=== PATIENT | female | born 1950 | race Caucasian/White ===

== ENCOUNTER 2018-12-20 08:18 | Outpatient (REF) | payer MEDICARE, MEDICAID, SELFPAY ==
[2018-12-20 22:45] LABS: Mean Corp. HGB Concentration 34.1 g/dL (32.0-36.0); Mean Corpuscular Hemoglobin 31.4 pg (27.0-33.0); Mean Corpuscular Volume 91.9 fL (80-95); Platelet Count 76 x1000/uL (130-400); RBC 4.46 m/cumm (4.00-5.20); RBC Distribution Width 13.9 % (11.7-14.6); White Blood Cell Count 5.29 k/cumm (4.4-10.8)
[2018-12-20 22:46] LABS: Absolute Basophil Count 0.01 k/cumm (0.0-0.2); Absolute Eosinophil Count 0.13 k/cumm (0.0-0.7); Absolute Lymphocyte Count 1.69 k/cumm (1.2-3.4); Absolute Monocyte Count 0.48 k/cumm (0.11-0.7); Absolute Neutrophil Count 2.97 k/cumm (1.2-6.7); Atypical Lymphocytes % 0; Basophils % 0.2; Eosinophils % 2.5; Immature Grans % 0.2; Lymphocytes % 31.9; Mean Platelet Volume 11.5 fL (8.0-11.0); Monocytes % 9.1; Neutrophils % 56.1
[2018-12-20 22:47] LABS: RBC Morphology Normal
[2018-12-20 22:48] LABS: ESR 7 MM/HR (0-30)
== END 2018-12-20 08:38 ==
LOC: NCHCN 08:18
PROVIDERS: PCP Internal Medicine; Visit Provider Registered Nurse
DX: E03.9 Hypothyroidism, unspecified (principal); H04.129 Dry eye syndrome of unspecified lacrimal gland
CPT/HCPCS: 85652; 85025

== ENCOUNTER 2019-03-26 10:40 | Outpatient (REF) | payer MEDICARE, MEDICAID, SELFPAY ==
[2019-03-26 23:48] LABS: Calculated LDL 123 mg/dL; Cholesterol 196 mg/dL (50-200); HDL Cholesterol 51 mg/dL (40-60); TSH (W/Ref FT4) 4.38 uIU/mL (0.358-3.74); Triglyceride 111 mg/dL (30-150)
[2019-03-27 00:13] LABS: FREE T4 0.98 ng/dL (0.76-1.46)
== END 2019-03-26 11:00 ==
LOC: NCHCN 10:40
PROVIDERS: PCP Internal Medicine; Visit Provider Internal Medicine
DX: E03.9 Hypothyroidism, unspecified (principal); B18.2 Chronic viral hepatitis C; Z13.6 Encounter for screening for cardiovascular disorders
CPT/HCPCS: 80061; 83721; 84439; 84443

== ENCOUNTER 2021-03-19 18:19 | Outpatient (REF) | payer MEDICARE, MEDICAID, SELFPAY ==
[2021-03-19 21:19] LABS: ALT 14 U/L (14-59); AST 27 U/L (15-37); Albumin 3.2 g/dL (3.4-5.0); Alkaline Phosphatase 85 U/L (46-116); Anion Gap 9.5 mmol/L (3-11); BUN 10 mg/dL (7-18); Bilirubin, Total 0.7 mg/dL (0.2-1.0); CO2 25.5 mmol/L (21.0-32.0); CREATININE 0.7 mg/dL (0.55-1.02); Calcium 8.7 mg/dL (8.5-10.1); Chloride 108 mmol/L (98-107); Glucose 113 mg/dL (74-106); Sodium 143 mmol/L (136-145); Total Protein 6.8 g/dL (6.4-8.2)
[2021-03-20 08:43] LABS: Hemoglobin A1C 5.3 % (<5.7)
== END 2021-03-19 18:20 | disposition home or self-care (01) ==
LOC: NCHCN 18:19
PROVIDERS: PCP Internal Medicine; Visit Provider Nurse Practitioner Family
DX: R73.9 Hyperglycemia, unspecified (principal); E66.9 Obesity, unspecified; R60.0 Localized edema; R30.0 Dysuria
CPT/HCPCS: 80053; 83036

== ENCOUNTER 2021-03-20 13:26 | Outpatient (REF) | payer MEDICARE, MEDICAID, SELFPAY ==
[2021-03-20 15:12] LABS: COMMENT (LAB VIEW ONLY) 188.03 mg/dL; Microalb ug/mg Crea 5.9 ug/mg Cr
== END 2021-03-20 13:27 | disposition home or self-care (01) ==
LOC: NCHCN 13:26
PROVIDERS: PCP Internal Medicine; Visit Provider Internal Medicine
DX: R30.0 Dysuria (principal)
CPT/HCPCS: 82043; 82570; 87086

== ENCOUNTER 2021-07-20 15:40 | Outpatient (REF) | payer MEDICARE, MEDICAID, SELFPAY ==
[2021-07-20 21:45] LABS: HCT 44.3 % (36.0-46.0); HGB 14.4 g/dL (11.2-15.7); MCH 29.9 pg (27.0-33.0); MCHC 32.5 % (32.0-36.0); MCV 91.9 fL (80-95); MPV 11.9 fL (8.0-11.0); Platelet Count 80 10^3/uL (130-400); RBC 4.82 10^6/uL (3.93-5.22); RDW 13.8 % (11.7-14.6); RDW-SD 46.9 fL; WBC 6.49 10^3/uL (4.4-10.8)
[2021-07-20 22:22] LABS: TSH 4.02 uIU/mL (0.36-3.74); Vitamin B12 704 pg/mL (193-986)
== END 2021-07-20 15:41 | disposition home or self-care (01) ==
LOC: NCHCN 15:40
PROVIDERS: PCP Internal Medicine; Visit Provider Internal Medicine
DX: R41.3 Other amnesia (principal); D69.6 Thrombocytopenia, unspecified
CPT/HCPCS: 85027; 82607; 84443

== ENCOUNTER 2021-12-23 21:57 | Outpatient (REF) | payer MEDICARE, MEDICAID, SELFPAY ==
[2021-12-25 11:30] LABS: Lyme Ab w Rflx to Lyme Confirm Negative (Negative)
[2021-12-27 00:37] LABS: Anaplasma phagocytophilum Negative (Negative); B. miyamotoi PCR Negative (Negative); Babesia divergens/MO-1 Negative (Negative); Babesia duncani Negative (Negative); Babesia microti Negative (Negative); Ehrlichia chaffeensis Negative (Negative); Ehrlichia ewingii/canis Negative (Negative); Ehrlichia muris eauclairensis Negative (Negative)
== END 2021-12-23 21:58 | disposition home or self-care (01) ==
LOC: LBN 21:57
PROVIDERS: PCP Internal Medicine; Visit Provider Internal Medicine
DX: R53.83 Other fatigue (principal); M25.50 Pain in unspecified joint
CPT/HCPCS: 87798; 86618

== ENCOUNTER 2022-01-21 18:58 | Outpatient (REF) | payer MEDICARE, MEDICAID, SELFPAY ==
[2022-01-25 12:37] LABS: HCV RNA Qualitative Undetected (Undetected)
== END 2022-01-21 18:59 | disposition home or self-care (01) ==
LOC: NCHCN 18:58
PROVIDERS: PCP Internal Medicine; Visit Provider Internal Medicine
DX: B18.2 Chronic viral hepatitis C (principal)
CPT/HCPCS: 87522

== ENCOUNTER 2022-11-19 18:19 | Outpatient (REF) | payer MEDICARE, MEDICAID, SELFPAY ==
[2022-11-19 15:11] LABS: HCT 43.1 % (36.0-46.0); HGB 14.3 g/dL (11.2-15.7); MCH 30.2 pg (27.0-33.0); MCHC 33.2 % (32.0-36.0); MCV 91 fL (80-95); MPV 11.1 fL (8.0-11.0); Platelet Count 75 10^3/uL (130-400); RBC 4.73 10^6/uL (3.93-5.22); RDW 14.4 % (11.7-14.6); RDW-SD 47.8 fL; WBC 3.99 10^3/uL (4.4-10.8)
[2022-11-19 15:25] LABS: ALT 15 U/L (14-59); AST 34 U/L (15-37); Albumin 3.4 g/dL (3.4-5.0); Alkaline Phosphatase 89 U/L (46-116); Anion Gap 6.7 mmol/L (3-11); BUN 9 mg/dL (7-18); Bilirubin, Total 1.1 mg/dL (0.2-1.0); CO2 30.3 mmol/L (21.0-32.0); CREATININE 0.6 mg/dL (0.55-1.02); Calcium 9.1 mg/dL (8.5-10.1); Chloride 106 mmol/L (98-107); Cholesterol 174 mg/dL (<200); Estimated GFR 94.13 (mL/min/1.73m2); Glucose 117 mg/dL (74-106); Potassium 3.6 mmol/L (3.5-5.1); Sodium 143 mmol/L (136-145); Total Protein 7.5 g/dL (6.4-8.2); Triglyceride 177 mg/dL (<150)
[2022-11-19 15:38] LABS: Hemoglobin A1C 5.1 % (<5.7)
[2022-11-19 16:17] LABS: Calculated LDL 76 mg/dL (<100); HDL Cholesterol 63 mg/dL (40-60)
--- OUTSIDE RECORDS SUMMARY | 2022-11-19 18:21 | XMS_ITS | CCD ---
Author Name Unknown Address [address] [place] [address] [phone] Organization Unknown Address [address] [place] [address] [phone] Care Team Providers Care Physics Technician Name Role Phone LOS MAURA Danyel Attending Physician [phone] Vital Signs Unknown or Not Available. Allergies Allergy Code Allergy Type Reaction Status PATIENT OR PATIENT FAMILY DE NIES ANY ALLERGIES {Clinical monitoring unavailable} 0 Drug allergy Active Procedures Unknown or Not Available. History of Immunizations Unknown or Not Available. Problems Unknown or Not Available. Results Unknown or Not Available. Active Medications Medication Code Dose Units Frequency Route Modificatio n Start Date/Time HYDROcodone bitartrate-acet aminophen 5MG-325MG Oral Tablet 523652 1 TABLET DAILY ORAL 12/23/2021 08:04 Prescription Detail TAKE 1 TABLET ORAL DAILY HERBAL JOINT/ARTHRITIS SUPPLEMENT 0 1 EACH DAILY BY MOUTH 02/23/2018 12:29 Prescription Detail TAKE 1 EACH BY MOUTH DAILY One Daily Women's Oral Tablet 6314307 1 TABLET DAILY ORAL 02/23/2018 12:29 Prescription Detail TAKE 1 TABLET ORAL DAILY Probiotic Formula 250 MG-1 Billion CFU Oral Capsule [id number] 1 CAPSULE DAILY ORAL 02/23/2018 12:29 Prescription Detail TAKE 1 CAPSULE ORAL DAILY VITAMIN D TAB 250MG 0 500 MILLIGRAMS NEEDED DAILY BY MOUTH 02/23/2018 12:29 Prescription Detail TAKE 500 MILLIGRAMS BY MOUTH NEEDED D AILY Levothyroxine 50MCG Oral Tablet [id number] 1 TABLET DAILY ORAL 02/23/2018 12:28 Prescription Detail TAKE 1 TABLET ORAL DAILY Claudy Natural [place]-3 Fish Oil 1000 MG-1 IU Oral Capsule, Liquid Filled [id number] 1 CAPSULE DAILY ORAL 02/24/20 12:28 Prescription Detail TAKE 1 CAPSULE ORAL DAILY Medications Administered During Visit Unknown or Not Available. Encounters Encounter Diagnosis Diagnosis Code Start Date Other abnormalities of gait and mobility [id number] 01/20/2022 Social History Smoking Status Code Start Date End Date Current some day smoker [id number] Patient Decision Aids Unknown or Not Available. Discharge Instructions You were admitted to [facility] on 01/20/2022 10:59 with a principal diagnosis of Other abnormalities of gait and mobility You were discharged from [facility] on 05/05/2022 11:18 Should you have any questions prior to discharge, please contact a member of your healthcare team. If you have left the hospital and have any questions, please contact your primary care physician. Chief Complaint and Reason For Visit Unknown or Not Available. Function Status Unknown or Not Available. Plan of Care Unknown or Not Available. Referral/Transition of Care Unknown or Not Available.
--- OUTSIDE RECORDS SUMMARY | 2022-11-19 18:21 | XMS_ITS | CCD ---
Author Name Unknown Address [address] [place] [address] [phone] Organization Unknown Address [address] [place] [address] [phone] Care Team Providers Care Engraver Ornamental Design Name Role Phone SEGUNDO CRABTREE, NERY Clay Attending Physician [phone] Vital Signs Unknown or Not Available. Allergies [...] Date/Time HYDROcodone bitartrate-acet aminophen 5MG-325MG Oral Tablet 452657 1 TABLET DAILY ORAL 12/23/2021 08:04 Prescription Detail TAKE 1 TABLET ORAL DAILY HERBAL JOINT/ARTHRITIS SUPPLEMENT 0 1 EACH DAILY BY MOUTH 02/23/2018 12:29 Prescription Detail TAKE 1 EACH BY MOUTH DAILY One Daily Women's Oral Tablet 2724742 1 TABLET DAILY ORAL 02/23/2018 12:29 Prescription Detail TAKE 1 TABLET ORAL DAILY Probiotic Formula 250 MG-1 Billion CFU Oral Capsule 2562588 1 CAPSULE DAILY ORAL 02/23/2018 12:29 Prescription Detail TAKE 1 CAPSULE ORAL DAILY VITAMIN D TAB 250MG 0 500 MILLIGRAMS NEEDED DAILY BY MOUTH 02/23/2018 12:29 Prescription Detail TAKE 500 MILLIGRAMS BY MOUTH NEEDED D AILY Levothyroxine 50MCG Oral Tablet 823234 1 TABLET DAILY ORAL 02/23/2018 12:28 Prescription Detail TAKE 1 TABLET ORAL DAILY Claudy Natural [place]-3 Fish Oil 1000 MG-1 IU Oral Capsule, Liquid Filled [id number] 1 CAPSULE DAILY ORAL 02/24/20 12:28 Prescription Detail TAKE 1 CAPSULE ORAL DAILY Medications Administered During Visit Unknown or Not Available. Encounters Encounter Diagnosis Diagnosis Code Start Date Cardiomegaly I517 04/16/2021 Social History Smoking Status Code Start Date End Date Current some day smoker [id number] Patient Decision Aids Unknown or Not Available. Discharge Instructions You were admitted to [facility] on 04/16/2021 09:52 with a principal diagnosis of Cardiomegaly You were discharged from [facility] on 04/16/2021 09:52 Should you have any questions prior to [...]
== END 2022-11-19 18:20 | disposition home or self-care (01) ==
LOC: NCHCN 18:19
PROVIDERS: PCP Internal Medicine; Visit Provider Internal Medicine
DX: R73.9 Hyperglycemia, unspecified (principal); K74.60 Unspecified cirrhosis of liver; E03.9 Hypothyroidism, unspecified
CPT/HCPCS: 80053; 80061; 85027; 83036

== ENCOUNTER 2024-05-10 12:45 | Outpatient (REF) | payer MEDICARE, MEDICAID, SELFPAY ==
--- OUTSIDE RECORDS SUMMARY | 2024-05-10 12:47 | XMS_ITS ---
Author Organization Unknown Address [address] [place] [address] [phone] Phone Care Team Providers Care Progressive Care Nurse Name Role Phone LOS Montaño Attending Unavailable Social History Type Status Start Date End Date Code Code Syst em Smoking History Current some day smoker [id number] SNOMED CT Sex Female Medications Medication Start Date End Date Route Frequency Dose Code Code System Medication Instructions Home Meds HERBAL JOINT/ARTHRITIS SUPPLEMENT 02/23/2018 Unknown BY MOUTH DAILY 1 unit(s) RxNorm TAKE 1 EACH BY MOUTH DAILY Levothyroxine 50MCG Oral Tablet 02/23/2018 Unknown ORAL DAILY 1 TABLET 880130 RxNorm TAKE 1 TABLET ORAL DAILY Claudy Natural [place]-3 Fish Oil 1000 MG-1 IU Oral Capsule, Liquid Filled 02/23/2018 Unknown ORAL DAILY 1 CAPSULE RxNorm TAKE 1 CAPSULE ORAL DAILY One Daily Women's Oral Tablet 02/23/2018 Unknown ORAL DAILY 1 TABLET 2198297 RxNorm TAKE 1 TABLET ORAL DAILY Probiotic Formula 250 MG-1 Billion CFU Oral Capsule 02/23/2018 Unknown ORAL DAILY 1 CAPSULE 7931078 RxNorm TAKE 1 CAPSULE ORAL DAILY VITAMIN D TAB 250MG 02/23/2018 Unknown BY MOUTH NEEDED DAILY 500 MILLIGRAMS RxNorm TAKE 500 MILLIGRAMS BY MOUTH NEEDED DAILY HYDROcodone bitartrate-aceta minophen 5MG-325MG Oral Tablet 12/23/2021 Unknown ORAL DAILY 1 TABLET 311384 RxNorm TAKE 1 TABLET ORAL DAILY Furosemide 20MG Oral Tablet 06/21/2023 Unknown ORAL DAILY 1 TABLET 285116 RxNorm TAKE 1 TABLET ORAL DAILY Assessment You had the following problems:BILATERAL LOWER EXTREMITY EDEMADYSPNEATHROMBOCYTOPENIA Hospital Discharge Instructions Should you have any questions prior to discharge, please contact a member of your healthcare team. If you have left the hospital and have any questions, please contact your primary care physician. Reason For Referral No Data Found Problems Problem Start Date Resolved Date Status Code Code System BILATERAL LOWER EXTREMITY EDEMA active 601434283 SNOMED-CT DYSPNEA active 451371732 SNOMED-CT THROMBOCYTOPENIA active 256223871 SNO MED-CT HEPATITIS B active 30386512 SNOMED-C T THROMBOCYTOPENIA active 593609933 SNO MED-CT OBSTRUCTIVE SLEEP APNEA active 651059 09 SNOMED-CT HYPOTHYROIDISM active 99126632 SNOME D-CT BILATERAL LOWER EXTREMITY EDEMA active 534552490 SNOMED-CT CHRONIC HEPATITIS C active 181992947 SNOMED-CT Allergies and Adverse Reactions Allergy Substance Reaction Severity Start Date Concern Status Co de Code System No Known Drug Allergies Active 818792792 SNOMED-CT Plan of Treatment Travel 02/03/2021 Lab Draw 11/28/2020 BONE DENSITY DEXA SPINE & HIP 3 US ABDOMEN LIMITED 1 ORGAN 12/08/2022 BONE DENSITY DEXA SPINE & HIP 3 US ABDOMEN LIMITED 1 ORGAN 12/08/2022 Encounters Encounter Diagnosis Start Date Code Code Sys tem Other abnormalities of gait and mobility 01/20/2022 SNOMED-CT Personal Care Team Section Performer Name Performer Role Active Date Inactive Da te
--- OUTSIDE RECORDS SUMMARY | 2024-05-10 12:48 | XMS_ITS | Clinical Summary ---
Author Organization [facility] Address [address] [place] [address] Care Team Providers Care Physical Biochemist Name Role Phone Anastacio Merlos MD Primary Care Provider Unav ailable Allergies No known active allergies Medications Medication Sig Dispensed Refills Start Date End Date Status levothyroxine (SYNTHROID) 50 mcg tablet Take 50 mcg by mouth daily Active UNABLE TO FIND Take 1 Cap by mouth daily Med Name: cognishield Active furosemide (LASIX) 20 mg tablet Take 20 mg by mouth daily. Active Vit B91-Yoyxcut Fact-FA Cmb #2 (INTRINSI [id number]) 500-20-800 mcg-mg-mcg tablet Take by mouth. Act kanika Potassium 99 mg tablet Take 1 Tab by mouth daily. Active cholecalciferol, Vitamin D3, 1,000 unit tablet Take 1,000 Units by mouth daily. Active cyanocobalamin (VITAMIN B-12) 500 mcg tablet Take 500 mcg by mouth daily. Active Active Problems Patient Care Coordination No te Formatting of this note migh t be different from the original. [facility] TALON scanned into Prism: 07/29/15 Problem Noted Date Diagnosed Date Cataracts, bilateral Rosacea Hepatitis C Hypothyroidism JOVITA (obstructive sleep apnea) Stress incontinence, female Depression ADD (attention deficit disorder) Surgical History Surgery Date Site/Laterality Comments CATARACT REMOVAL WITH IMPLANT 2014 Bilateral SECTION x 1 Medical History Medical History Date Comments Cataracts, bilateral Rosacea Hepatitis C Hypothyroidism JOVITA (obstructive sleep apnea) Stress incontinence, female Obesity Depression ADD (attention deficit disorder) Wrist fracture Family History Medical History Relation Comments Dementia Mother Relation Status Comments Mother Social History Tobacco Use Types Packs/Day Years Used Date Smoking Tobacco: Some Days Smokeless Tobacco: Never Tobacco Cessation:Ready to Q uit: No Comments:Occasional smoker Alcohol Use Standard Drinks/Week Comments No 0 (1 standard drink = 0.6 oz pur e alcohol) Interpersonal Safety Answer Date Record ed Physically Hurt Never 04/20/2020 Verbally Threaten Not on file 04/20/2020 Sex and Gender Information Value Date Recorded Sex Assigned at Not on file Gender Identity Not on file Sexual Orientation Not on file Obstetrics History Last Filed Vital Signs Vital Sign Reading Time Taken Comments Blood Pressure 135/80 08/12/2015 1436 EST Pulse 72 07/17/2018 1512 EDT Temperature - - Respiratory Rate 16 07/17/2018 151 EDT Oxygen Saturation - - Inhaled Oxygen Concentration - - Weight 90.7 kg (200 lb) 07/17/2018 151 EDT Height 157.5 cm (5' 2) 07/17/2018 151 EDT Body Mass Index 36.58 07/17/2018 1512 EDT Plan of Treatment Health Maintenance Due Date Last Done Comments RSV Immunization ( o r 60+ Years) (1 - 1-dose 60+ series) 2008 Fall Risk Screening 08/12/2016 08/12/2015 COVID-19 Vaccine (2022-24 season) 2023 Hepatitis C Screen Completed 01/21/2022, 0 10/05/2018, 01/18/2018 Procedures Procedure Name Priority Date/Time Associated Diagnosis Comments HCV RNA DETECT QUANT Routine 01/21/2022 16:23 EDT from Last 3 Months or Most Recently Relevant to Health Maintenance Results * HCV RNA DETECT QUANT (01/21/2022 16:23 EDT) HCV RNA Qualitative Undetected Undetected 01/25/2022 12:33 EDT [facility] Blood VENOUS BLOOD / Unknown 01/21/2022 16:23 EDT 01/22/2022 16:37 EDT Narrative [facility] - 01/25/2022 12:33 EDT The quantification range of this assay is 15 IU/mL to 100,000,000 IU/mL. Testing was performed using the [employer] HCV test ([employer] with the alfonso Parkya0 System. Provider Outr Resulting Lab CHEMISTRY & BLOOD GAS ORDERABLES [facility] [address] [place] [address] from Last 3 Months or Most Recently Relevant to Health Maintenance Care Teams Physical Biochemist Relationship Specialty Start Date End Date Anastacio Merlos MD PCP - General 08/12/15
--- OUTSIDE RECORDS SUMMARY | 2024-05-10 12:48 | XMS_ITS ---
Author Organization Unknown Address [address] [place] [address] [phone] Phone Care Team Providers Care Lead Pl Sql Developer Name Role Phone NICHOLAS Elliott Attending Unavailable LOS Montaño Primary Unavailable Social History Type Status Start Date End Date Code Code Syst em Smoking History Current some day smoker [id number] SNOMED CT Sex Female Medications Medication Start Date End Date Route Frequency Dose Code Code System Medication Instructions Home Meds HERBAL JOINT/ARTHRITIS SUPPLEMENT 02/23/2018 Unknown BY MOUTH DAILY 1 unit(s) RxNorm TAKE 1 EACH BY MOUTH DAILY Levothyroxine 50MCG Oral Tablet 02/23/2018 Unknown ORAL DAILY 1 TABLET 366394 RxNorm TAKE 1 TABLET ORAL DAILY Claudy Natural [place]-3 Fish Oil 1000 MG-1 IU Oral Capsule, Liquid Filled 02/23/2018 Unknown ORAL DAILY 1 CAPSULE RxNorm TAKE 1 CAPSULE ORAL DAILY One Daily Women's Oral Tablet 02/23/2018 Unknown ORAL DAILY 1 TABLET 2999781 RxNorm TAKE 1 TABLET ORAL DAILY Probiotic Formula 250 MG-1 Billion CFU Oral Capsule 02/23/2018 Unknown ORAL DAILY 1 CAPSULE 7566552 RxNorm TAKE 1 CAPSULE ORAL DAILY VITAMIN D TAB 250MG 02/23/2018 Unknown BY MOUTH NEEDED DAILY 500 MILLIGRAMS RxNorm TAKE 500 MILLIGRAMS BY MOUTH NEEDED DAILY HYDROcodone bitartrate-aceta minophen 5MG-325MG Oral Tablet 12/23/2021 Unknown ORAL DAILY 1 TABLET 666868 RxNorm TAKE 1 TABLET ORAL DAILY Furosemide 20MG Oral Tablet 06/21/2023 Unknown ORAL DAILY 1 TABLET 204939 RxNorm TAKE 1 TABLET ORAL DAILY Assessment [...] Code System BILATERAL LOWER EXTREMITY EDEMA active 875788589 SNOMED-CT DYSPNEA active 724826167 SNOMED-CT THROMBOCYTOPENIA active 812717951 SNO MED-CT HEPATITIS B active 46350837 SNOMED-C T THROMBOCYTOPENIA active 899959407 SNO MED-CT OBSTRUCTIVE SLEEP APNEA active 699560 09 SNOMED-CT HYPOTHYROIDISM active 79262297 SNOME D-CT BILATERAL LOWER EXTREMITY EDEMA active 516910059 SNOMED-CT CHRONIC HEPATITIS C active 494999488 SNOMED-CT Allergies and Adverse Reactions Allergy Substance Reaction Severity Start Date Concern Status Co de Code System No Known Drug Allergies Active 577528421 SNOMED-CT Plan of Treatment Travel 02/03/2021 Lab Draw 11/28/2020 BONE DENSITY DEXA SPINE & HIP 3 US ABDOMEN LIMITED 1 ORGAN 12/08/2022 BONE DENSITY DEXA SPINE & HIP 3 US ABDOMEN LIMITED 1 ORGAN 12/08/2022 Encounters Encounter Diagnosis Start Date Code Code Sys tem 01/06/2023 [id number] SNOMED-CT Personal Care Team Section Performer Name Performer Role Active Date Inactive Da rigoberto
--- OUTSIDE RECORDS SUMMARY | 2024-05-10 12:48 | XMS_ITS ---
Author Organization Unknown Address [address] [place] [phone] Phone Care Team Providers Care Tie Tamper Name Role Phone CLAYTON MANCUSO Registered Nurse Unavailable GERARD Danielle Attending Unavailable LOS Motnaño Primary Unavailable UNLISTED PROVIDER - REQUESTED Xhandoff Un available Results TROPONIN HIGH SENSITIVITY* - Collect Date/Time: 06/21/2023 16:20 [facility] ID: [id number] [address] [place] [address], 5661 LOINC: 01460-2 Test Value Unit Reference Range Code Code System Flag TROPONIN HS 8.0 pg/mL L=0.0 H=60.4 Specimen seq. ADM. THYROID TESTING CASCADE* - C ollect Date/Time: 06/21/2023 16:20 [facility] ID: [id number] [address] [place] [address], 5661 LOINC: 3016-3 Test Value Unit Reference Range Code Code System Flag TSH. 1.471 uIU/mL L=0.360 H=3.740 3014-8 LOINC PTT PARTIAL THROMBOPLASTIN T RICO* - Collect Date/Time: 06/21/2023 16:20 [facility] ID: [id number] [address] [place] [address], [phone] LOINC: 78214-2 Test Value Unit Reference Range Code Code System Flag PTT 27.1 seconds L=24.5 H=32.8 93858-8 LOINC PT PROTHROMBIN TIME* - Colle ct Date/Time: 06/21/2023 16:20 [facility] ID: [id number] [address] [place] [address], 5661 LOINC: 5902-2 Test Value Unit Reference Range Code Code System Flag PROTIME 11.1 seconds L=9.3 H=11.4 5902-2 LOINC INR 1.07 L=2.00 H=3.00 13441-9 LOINC L MAGNESIUM SERUM* - Collect D ate/Time: 06/21/2023 16:20 [facility] ID: [id number] [address] [place] [address], 61 LOINC: 66946-4 Test Value Unit Reference Range Code Code System Flag MAGNESIUM 1.9 mg/dL L=1.8 H=2.4 34805-5 LOINC D-DIMER - Collect Date/Time: 06/21/2023 16:20 [facility] ID: [id number] [address] [place] [address], 5661 LOINC: 79694-4 Test Value Unit Reference Range Code Code System Flag D-DIMER 0.93 mg/L L=0.19 H=0.50 23485-8 LOINC H COMPREHENSIVE METABOLIC PANE L (CMP) - Collect Date/Time: 06/21/2023 16:20 [facility] ID: [id number] [address] [place] [address], 5661 LOINC: 90630-8 Test Value Unit Reference Range Code Code System Flag GLUCOSE 153 mg/dL L=70 H=116 2345-7 LOINC H BUN 11 mg/dL L=6 H=25 3094-0 LOINC CREATININE 0.71 mg/dL L=0.51 H=0.95 2160-0 LOINC SODIUM SERUM 140 mmol/L L=136 H=145 2951-2 LOINC POTASSIUM SERUM 3.7 mmol/L L=3.4 H=5.2 2823-3 LOINC CHLORIDE SERUM 105 mmol/L L=96 H=110 2075-0 LOINC CARBON DIOXIDE (CO2) 30 mmol/L L=22 H=34 8-9 LOINC ANION GAP 4.6 mmol/L 19723-3 LOINC CALCIUM SERUM 8.9 mg/dL L=8.2 H=10.2 09952-9 LOINC BILIRUBIN TOTAL 1.3 mg/dL L=0.0 H=1.3 1975-2 LOINC ALK. PHOS. 72 U/L L=46 H=116 6768-6 LOINC SGOT (AST) 36 U/L L=15 H=37 1920-8 LOINC SGPT (ALT) 13 U/L L=12 H=78 1742-6 LOINC TOTAL PROTEIN 7.1 gm/dL L=6.0 H=8.0 2885-2 LOINC ALBUMIN 2.9 gm/dL L=3.4 H=5.0 1751-7 LOINC L AGE 72 years eGFR (non-Afr.Amer.) 80 mL/min 91833-8 LOINC eGFR (Afr-Omani) 97 mL/min 66537-5 LOINC CBC W/ DIFFERENTIAL* - Colle ct Date/Time: 06/21/2023 16:20 [facility] ID: [id number] [address] [place], [place], [id number] LOINC: 95799-8 Test Value Unit Reference Range Code Code System Flag WBC 3.86 th/cmm L=5.00 H=10.00 L NEUT % 59.8 % L=40.0 H=80.0 LYMPH % 26.7 % L=10.0 H=50.0 MONO % 7.3 % L=2.0 H=12.0 EOS % 5.4 % L=0.0 H=8.0 BASO % 0.5 % L=0.0 H=3.0 IG % 0.3 % L=0.0 H=1.1 NRBC % 0.0 % L=0.0 H=0.0 NEUT abs count 2.3 th/cmm L=1.6 H=8.4 LYMPH abs count 1.0 th/cmm L=1.5 H=4.0 L MONO abs count 0.3 th/cmm L=0.2 H=1.0 EOS abs count 0.2 th/cmm L=0.0 H=0.5 BASO abs count 0.0 th/cmm L=0.0 H=0.2 IG abs count 0.0 th/cmm L=0.0 H=0.1 NRBC abs count 0.0 mil/cmm L=0.0 H=0.0 RBC 4.18 mil/cmm L=3.90 H=5.40 HEMOGLOBIN 12.0 gm/dL L=12.0 H=16.0 HEMATOCRIT 37 % L=37 H=47 MCV 88 fL L=82 H=92 MCH 28.7 pg L=27.0 H=31.0 MCHC 32.5 % L=32.0 H=36.0 RDW-SD 50.3 fL L=39.0 H=49.0 H PLATELET COUNT 80 th/cmm L=150 H=[address] [facility] COVID FLU RSV GENEXPE RT - Collect Date/Time: 06/21/2023 16:20 [facility] ID: [id number] [address] [place] [address], [phone] LOINC: 87786-7 Test Value Unit Reference Range Code Code System Flag COVID NEGATIVE Normal: Negative 68060-4 LOINC INFLUENZA A DNA NEGATIVE Normal: Negative 01251-8 LOINC INFLUENZA B DNA NEGATIVE Normal: Negative 11292-9 LOINC RSV DNA NEGATIVE Normal: Negative 20706-4 LOINC BNP (PRO-B NATRIURETIC PEPTI DE) - Collect Date/Time: 06/21/2023 16:20 [facility] ID: [id number] [address] [place] [address], 5661 LOINC: 42135-5 Test Value Unit Reference Range Code Code System Flag NT-proBNP 47.0 pg/mL L=0.0 H=125 72836-[address] ANGIOGRAPHY CHEST - Compl eted: 06/21/2023 18:14 LOINC: [facility] RADIOLOGY [place], [place] [address] PACS PROFESSOR OF RHETORIC REPORT Patient Name: KAMILA MONTES MRN: Sex: : Age: [id number] F 1950 72 Account: Accession: Admit: StayType: [id number] 06/21/2023 E/R Ordered: Order ID: Submitted: Ordering Provider: 06/21/2023 17:38 [id number] JOSE DANIEL PETERSON Completed: Technologist: Resulted: 06/21/2023 18:14 KM 06/21/2023 18:33 Study Description: CT ANGIOGRAPHY CHEST Study Reason: r/o PE TECHNIQUE: Imaging Protocol: CT angiography of the chest was performed using pulmonary embolus protocol. Multi planar reconstructions were performed. CONTRAST MATERIAL Intravenous: Omnipaque 350 Contrast volume: 100 cc COMPARISON: No exams were available for comparison FINDINGS: CHEST: PULMONARY ARTERIES: There are no intraluminal filling defects to suggest acute pulmonary emboli. LUNGS: There are no infiltrates nor evidence of pulmonary infarction.. There are no pleural effusions. MEDIASTINUM: There is no hilar nor mediastinal adenopathy. CARDIAC: Heart size is upper normal. There is no pericardial effusion.Caliber of the thoracic aorta is within normal limits. No dissection. There is no evidence of shift of the interventricular septum. PARTIALLY VISUALIZED UPPERMOST ABDOMEN: Porcelain gallbladder. No adrenal masses. Splenomegaly. OSSEOUS: No significant osseous lesions and no fractures evident. IMPRESSION: 1. No evidence of acute pulmonary emboli. No evidence of pulmonary infarction.No pleural effusions. 2. No aortic dissection. No pericardial effusion Porcelain gallbladder. Splenomegaly Report Digitally Signed by Lowell Camilo on 06/21/2023 06:33 PM EDT XR CHEST 2V PA AND LATERAL - Completed: 06/21/2023 17:19 LOINC: [facility] RADIOLOGY [place], [place] [address] PACS PROFESSOR OF RHETORIC REPORT Patient Name: KAMILA MONTES MRN: Sex: : Age: [id number] F 1950 [id number] Account: Accession: Admit: StayType: [id number] 06/21/2023 E/R Ordered: Order ID: Submitted: Ordering Provider: 06/21/2023 16:15 [id number] JOSE DANIEL PETERSON Completed: Technologist: Resulted: 06/21/2023 17:19 LXH 06/21/2023 17:37 Study Description: XR CHEST 2V PA AND LATERAL Study Reason: SOB TECHNIQUE: 2D digital imaging was performed. PA and Lateral views COMPARISON: Prior chest x-ray 12/24/2019 FINDINGS: Heart size is normal. The mediastinum is not widened. Lungs are clear. There are no infiltrates nor pleural effusions. Elevated left hemidiaphragm again noted IMPRESSION: No acute pulmonary findings. Elevated left hemidiaphragm again noted. Calcification in the right side of the abdomen noted with either related to large gallstone or porcelain gallbladder. Report Digitally Signed by Lowell Camilo on 06/21/2023 05:37 PM EDT Social History Type Status Start Date End Date Code Code Syst em Smoking History Current some day smoker [id number] SNOMED CT Sex Female Vital Signs Vital Sign Value Unit Kimball Value Kimball Unit Date/Time Recent/Initial? Code Code System Body Mass Index 36.18 kg/m2 06/21/2023 16:15 Initial 88597 -5 LOINC Systolic Blood Pressure 118 mm[Hg] 06/21/2023 18:54 Most Recent 8480- 6 LOINC Diastolic Blood Pressure 83 mm[Hg] 06/21/2023 18:54 Most Recent 8462- 4 LOINC Systolic Blood Pressure 123 mm[Hg] 06/21/2023 16:15 Initial 8480- 6 LOINC Diastolic Blood Pressure 110 mm[Hg] 06/21/2023 16:15 Initial 8462- 4 LOINC Body Surface Area 1.98 m2 06/21/2023 16:15 Initial 3140- 1 LOINC Height 157.480 0 cm 62.00 in 06/21/2023 16:15 Initial 8302- 2 INC O2 Saturation 97 % 2022 18:54 Most Recent 08286 -5 INC O2 Saturation 98 % 2022 16:15 Initial 29426 -5 INC Pulse 67.0 /min 06/21/2023 18:54 Most Recent 8867- 4 INC Pulse 76.0 /min 06/21/2023 16:15 Initial 8867- 4 LOINC Respiration 18 /min 06/21/20 18:54 Most Recent 9279- 1 LOINC Respiration 18 /min 06/21/20 16:15 Initial 9279- 1 INC Temperature 36.1 Enma 97.0 F 06/21/20 16:15 Initial 8310- 5 INC Weight 89.72 kg 197.80 lbs 06/21/2023 16:15 Initial 26130 -7 [facility] Medications Medication Start Date End Date Route Frequency Dose Code Code System Medication Instructions Home Meds HERBAL JOINT/ARTHRITIS SUPPLEMENT 02/23/2018 Unknown BY MOUTH DAILY 1 unit(s) RxNorm TAKE 1 EACH BY MOUTH DAILY Levothyroxine 50MCG Oral Tablet 02/23/2018 Unknown ORAL DAILY 1 TABLET 736018 RxNorm TAKE 1 TABLET ORAL DAILY Claudy Natural Eldred-3 Fish Oil 1000 MG-1 IU Oral Capsule, Liquid Filled 02/23/2018 Unknown ORAL DAILY 1 CAPSULE RxNorm TAKE 1 CAPSULE ORAL DAILY One Daily Women's Oral Tablet 02/23/2018 Unknown ORAL DAILY 1 TABLET 7968016 RxNorm TAKE 1 TABLET ORAL DAILY Probiotic Formula 250 MG-1 Billion CFU Oral Capsule 02/23/2018 Unknown ORAL DAILY 1 CAPSULE 0418350 RxNorm TAKE 1 CAPSULE ORAL DAILY VITAMIN D TAB 250MG 02/23/2018 Unknown BY MOUTH NEEDED DAILY 500 MILLIGRAMS RxNorm TAKE 500 MILLIGRAMS BY MOUTH NEEDED DAILY HYDROcodone bitartrate-aceta minophen 5MG-325MG Oral Tablet 12/23/2021 Unknown ORAL DAILY 1 TABLET 643105 RxNorm TAKE 1 TABLET ORAL DAILY Furosemide 20MG Oral Tablet 06/21/2023 Unknown ORAL DAILY 1 TABLET 214357 RxNorm TAKE 1 TABLET ORAL DAILY Assessment You had the following problems:BILATERAL LOWER EXTREMITY EDEMADYSPNEATHROMBOCYTOPENIA Hospital Discharge Instructions Should you have any questions prior to discharge, please contact a member of your healthcare team. If you have left the hospital and have any questions, please contact your primary care physician. Reason For Referral No Data Found Procedures Procedure Name Date Status Code Code Syste m section completed 12042554 SNOMEDCT Problems Problem Start Date Resolved Date Status Code Code System BILATERAL LOWER EXTREMITY EDEMA active 730662193 SNOMED-CT DYSPNEA active 970612882 SNOMED-CT THROMBOCYTOPENIA active 589041185 SNO MED-CT HEPATITIS B active 60494363 SNOMED-C T THROMBOCYTOPENIA active 590566467 SNO MED-CT OBSTRUCTIVE SLEEP APNEA active 312450 09 SNOMED-CT HYPOTHYROIDISM active 93460844 SNOME D-CT BILATERAL LOWER EXTREMITY EDEMA active 745750248 SNOMED-CT CHRONIC HEPATITIS C active 549295114 SNOMED-CT Allergies and Adverse Reactions Allergy Substance Reaction Severity Start Date Concern Status Co de Code System No Known Drug Allergies Active 717481487 SNOMED-CT Plan of Treatment Travel 02/03/2021 Lab Draw 11/28/2020 BONE DENSITY DEXA SPINE & HIP 3 US ABDOMEN LIMITED 1 ORGAN 12/08/2022 BONE DENSITY DEXA SPINE & HIP 3 US ABDOMEN LIMITED 1 ORGAN 12/08/2022 OUTPATIENT PLAN: Additional Physician Instructions: Please try to decrease salt/sodium intake as much as possible. Your prescription was electronically sent to [facility] in [place]. Discharge Medications Medication Dosage Route Frequency Prescribing MD Special Instructions Furosemide 20MG Oral Tablet 1 TABLET ORAL DAILY GERARD JOSE DANIEL Lolis TAKE 1 TABLET ORAL DAILY HOSPITAL COURSE AND TESTING: Medications given this visit: Ordered & Completed Meds Table: No Current Medications Available Lab Results: This Visit Test Results Units Reference Range Ordered Collected Status NT-proBNP 47 pg/mL L=0.0 H=125 06/21/2023 16:15 06/21/2023 16:20 final WBC 3.86 L th/cmm L=5.00 H=10.00 06/21/2023 16:15 06/21/2023 16:20 final NEUT % 59.8 % L=40.0 H=80.0 06/21/2023 16:15 06/21/2023 16:20 final LYMPH % 26.7 % L=10.0 H=50.0 06/21/2023 16:15 06/21/2023 16:20 final MONO % 7.3 % L=2.0 H=12.0 06/21/2023 16:15 06/21/2023 16:20 final EOS % 5.4 % L=0.0 H=8.0 06/21/2023 16:15 06/21/2023 16:20 final BASO % 0.5 % L=0.0 H=3.0 06/21/2023 16:15 06/21/2023 16:20 final IG % 0.3 % L=0.0 H=1.1 06/21/2023 16:15 06/21/2023 16:20 final NRBC % 0 % L=0.0 H=0.0 06/21/2023 16:15 06/21/2023 16:20 final NEUT abs count 2.3 th/cmm L=1.6 H=8.4 06/21/2023 16:15 06/21/2023 16:20 final LYMPH abs count 1 L th/cmm L=1.5 H=4.0 06/21/2023 16:15 06/21/2023 16:20 final MONO abs count 0.3 th/cmm L=0.2 H=1.0 06/21/2023 16:15 06/21/2023 16:20 final EOS abs count 0.2 th/cmm L=0.0 H=0.5 06/21/2023 16:15 06/21/2023 16:20 final BASO abs count 0 th/cmm L=0.0 H=0.2 06/21/2023 16:15 06/21/2023 16:20 final IG abs count 0 th/cmm L=0.0 H=0.1 06/21/2023 16:15 06/21/2023 16:20 final NRBC abs count 0 mil/cmm L=0.0 H=0.0 06/21/2023 16:15 06/21/2023 16:20 final RBC 4.18 mil/cmm L=3.90 H=5.40 06/21/2023 16:15 06/21/2023 16:20 final HEMOGLOBIN 12 gm/dL L=12.0 H=16.0 06/21/2023 16:15 06/21/2023 16:20 final HEMATOCRIT 37 % L=37 H=47 06/21/2023 16:15 06/21/2023 16:20 final MCV 88 fL L=82 H=92 06/21/2023 16:15 06/21/2023 16:20 final MCH 28.7 pg L=27.0 H=31.0 06/21/2023 16:15 06/21/2023 16:20 final MCHC 32.5 % L=32.0 H=36.0 06/21/2023 16:15 06/21/2023 16:20 final RDW-SD 50.3 H fL L=39.0 H=49.0 06/21/2023 16:15 06/21/2023 16:20 final PLATELET COUNT 80 L th/cmm L=150 H=450 06/21/2023 16:15 06/21/2023 16:20 final GLUCOSE 153 H mg/dL L=70 H=116 06/21/2023 16:15 06/21/2023 16:20 final BUN 11 mg/dL L=6 H=25 06/21/2023 16:15 06/21/2023 16:20 final CREATININE 0.71 mg/dL L=0.51 H=0.95 06/21/2023 16:15 06/21/2023 16:20 final SODIUM SERUM 140 mmol/L L=136 H=145 06/21/2023 16:15 06/21/2023 16:20 final POTASSIUM SERUM 3.7 mmol/L L=3.4 H=5.2 06/21/2023 16:15 06/21/2023 16:20 final CHLORIDE SERUM 105 mmol/L L=96 H=110 06/21/2023 16:15 06/21/2023 16:20 final CARBON DIOXIDE (CO2) 30 mmol/L L=22 H=34 06/21/2023 16:15 06/21/2023 16:20 final ANION GAP 4.6 mmol/L 06/21/2023 16:15 06/21/2023 16:20 final CALCIUM SERUM 8.9 mg/dL L=8.2 H=10.2 06/21/2023 16:15 06/21/2023 16:20 final BILIRUBIN TOTAL 1.3 mg/dL L=0.0 H=1.3 06/21/2023 16:15 06/21/2023 16:20 final ALK. PHOS. 72 U/L L=46 H=116 06/21/2023 16:15 06/21/2023 16:20 final SGOT (AST) 36 U/L L=15 H=37 06/21/2023 16:15 06/21/2023 16:20 final SGPT (ALT) 13 U/L L=12 H=78 06/21/2023 16:15 06/21/2023 16:20 final TOTAL PROTEIN 7.1 gm/dL L=6.0 H=8.0 06/21/2023 16:15 06/21/2023 16:20 final ALBUMIN 2.9 L gm/dL L=3.4 H=5.0 06/21/2023 16:15 06/21/2023 16:20 final AGE 72 years 06/21/2023 16:15 06/21/2023 16:20 final eGFR (non-Afr.Amer.) 80 mL/min 06/21/2023 16:15 06/21/2023 16:20 final eGFR (Afr-Omani) 97 mL/min 06/21/2023 16:15 06/21/2023 16:20 final COVID NEGATIVE Normal: Negative 06/21/2023 16:15 06/21/2023 16:20 final INFLUENZA A DNA NEGATIVE Normal: Negative 06/21/2023 16:15 06/21/2023 16:20 final INFLUENZA B DNA NEGATIVE Normal: Negative 06/21/2023 16:15 06/21/2023 16:20 final RSV DNA NEGATIVE Normal: Negative 06/21/2023 16:15 06/21/2023 16:20 final D-DIMER 0.93 H mg/L L=0.19 H=0.50 06/21/2023 16:15 06/21/2023 16:20 final MAGNESIUM 1.9 mg/dL L=1.8 H=2.4 06/21/2023 16:15 06/21/2023 16:20 final PROTIME 11.1 seconds L=9.3 H=11.4 06/21/2023 16:15 06/21/2023 16:20 final INR 1.07 L L=2.00 H=3.00 06/21/2023 16:15 06/21/2023 16:20 final PTT 27.1 seconds L=24.5 H=32.8 06/21/2023 16:15 06/21/2023 16:20 final TSH. 1.471 uIU/mL L=0.360 H=3.740 06/21/2023 16:15 06/21/2023 16:20 final TROPONIN HS 8 pg/mL L=0.0 H=60.4 06/21/2023 16:15 06/21/2023 16:20 final Specimen seq. ADM. 06/21/2023 16:15 06/21/2023 16:20 final RADIOLOGY RESULTS: Study Description: XR CHEST 2V PA AND LATERAL Study Reason: SOB Technique: 2D digital imaging was performed. PA and Lateral views Comparison: Prior chest x-ray 12/24/2019 Findings: Heart size is normal. The mediastinum is not widened. Lungs are clear. There are no infiltrates nor pleural effusions. Elevated left hemidiaphragm again noted Impression: No acute pulmonary findings. Elevated left hemidiaphragm again noted. Calcification in the right side of the abdomen noted with either related to large gallstone or porcelain gallbladder. CT ANGIO CHEST - Interpreted by radiology. Impression: No evidence of PE. Encounters Encounter Diagnosis Start Date Code Code Sys tem Thrombocytopenic disorder 06/21/2023 046859629 SN OMED-CT Personal Care Team Section Performer Name Performer Role Active Date Inactive Da te
--- OUTSIDE RECORDS SUMMARY | 2024-05-10 12:48 | XMS_ITS ---
Author Organization Unknown Address [address] [place] [address] [phone] Phone Care Team Providers Care Office Helper Clerical Name Role Phone SEGUNDO Clay MD Attending Unavailable [place] Primary Unavailable Social History Type Status Start Date End Date Code Code Syst em Smoking History Smoker, current status unknown 49195064 SNOMED CT Smoking History Former smoker 6824900 SNOMED CT Smoking History Current some day smoker 314313426341992 SNOMED CT Sex Female Medications Medication Start Date End Date Route Frequency Dose Code Code System Medication Instructions Home Meds HERBAL JOINT/ARTHRITIS SUPPLEMENT 02/23/2018 Unknown BY MOUTH DAILY 1 unit(s) RxNorm TAKE 1 EACH BY MOUTH DAILY Levothyroxine 50MCG Oral Tablet 02/23/2018 Unknown ORAL DAILY 1 TABLET 122117 RxNorm TAKE 1 TABLET ORAL DAILY Claudy Natural Swan-3 Fish Oil 1000 MG-1 IU Oral Capsule, Liquid Filled 02/23/2018 Unknown ORAL DAILY 1 CAPSULE RxNorm TAKE 1 CAPSULE ORAL DAILY One Daily Women's Oral Tablet 02/23/2018 Unknown ORAL DAILY 1 TABLET 3162180 RxNorm TAKE 1 TABLET ORAL DAILY Probiotic Formula 250 MG-1 Billion CFU Oral Capsule 02/23/2018 Unknown ORAL DAILY 1 CAPSULE 2231092 RxNorm TAKE 1 CAPSULE ORAL DAILY VITAMIN D TAB 250MG 02/23/2018 Unknown BY MOUTH NEEDED DAILY 500 MILLIGRAMS RxNorm TAKE 500 MILLIGRAMS BY MOUTH NEEDED DAILY HYDROcodone bitartrate-aceta minophen 5MG-325MG Oral Tablet 12/23/2021 Unknown ORAL DAILY 1 TABLET 356865 RxNorm TAKE 1 TABLET ORAL DAILY Furosemide 20MG Oral Tablet 06/21/2023 Unknown ORAL DAILY 1 TABLET 243796 RxNorm TAKE 1 TABLET ORAL DAILY Assessment [...] Code System BILATERAL LOWER EXTREMITY EDEMA active 356172863 SNOMED-CT DYSPNEA active 245060522 SNOMED-CT THROMBOCYTOPENIA active 241362949 SNO MED-CT HEPATITIS B active 01681564 SNOMED-C T THROMBOCYTOPENIA active 343589199 SNO MED-CT OBSTRUCTIVE SLEEP APNEA active 755266 09 SNOMED-CT HYPOTHYROIDISM active 69922985 SNOME D-CT BILATERAL LOWER EXTREMITY EDEMA active 047269687 SNOMED-CT CHRONIC HEPATITIS C active 126042606 SNOMED-CT Allergies and Adverse Reactions Allergy Substance Reaction Severity Start Date Concern Status Co de Code System No Known Drug Allergies Active 144884116 SNOMED-CT Plan of Treatment Travel 02/03/2021 Lab Draw 11/28/2020 BONE DENSITY DEXA SPINE & HIP 3 US ABDOMEN LIMITED 1 ORGAN 12/08/2022 BONE DENSITY DEXA SPINE & HIP 3 US ABDOMEN LIMITED 1 ORGAN 12/08/2022 Encounters Encounter Diagnosis Start Date Code Code Sys tem Cardiomegaly 04/16/2021 SNOMED-CT Personal Care Team Section Performer Name Performer Role Active Date Inactive Sid franklin
--- OUTSIDE RECORDS SUMMARY | 2024-05-10 12:48 | XMS_ITS ---
Author Organization Unknown Address [address] [place] [address] [phone] Phone Care Team Providers Care Traffic Expert Name Role Phone LOS Montaño Attending Unavailable Results BD DXA BONE DENSITY HIP AND SPINE - Completed: 12/08/2022 08:51 LOINC: [facility] RADIOLOGY [place], [place] [address] PACS PUBLIC HEALTH PHYSICIAN REPORT Patient Name: KAMILA MONTES MRN: Sex: : Age: [id number] F [id number] Account: Accession: Admit: StayType: [id number] 12/08/2022 O/P Ordered: Order ID: Submitted: Ordering Provider: 12/08/2022 07:44 [id number] NLS MAURA MADISON Completed: Technologist: Resulted: 12/08/2022 08:51 DA 12/08/2022 12:30 Study Description: BD DXA BONE DENSITY HIP AND SPINE Study Reason: OSTEOPENIA TECHNIQUE: Performed on a Hologic unit. COMPARISON: No exams were available for comparison FINDINGS: Lumbar Spine total T-score: -1.0. Hip total T-score: -0.4. Independent reading at the femoral neck yields a T score of -2.2. IMPRESSION: Bone mineral density measures in the osteopenia range. Fracture risk is moderate. Note: Any spine fracture indicates 5x risk for subsequent spine fracture and 2x risk for subsequent hip fracture. World Health Organization criteria for BMD interpretation classify patients: Normal...... T- Score at or above -1.0 Osteopenic... T- Score between -1.0 and -2.5 Osteoporosis... T-Score at or below -2.5 No exams were available for comparison Report Digitally Signed by Lowell Camilo on 12/08/2022 12:30 PM EDT US ABD LIMITED ONE ORGAN - C ompleted: 12/08/2022 08:23 LOINC: [facility] RADI[facility]Y [place], [place] [address] PACS PUBLIC HEALTH PHYSICIAN REPORT Patient Name: KAMILA MONTES MRN: Sex: : Age: [id number] F 1950 [id number] Account: Accession: Admit: StayType: [id number] 12/08/2022 O/P Ordered: Order ID: Submitted: Ordering Provider: 12/08/2022 07:44 [id number] MAURA THOMAS Completed: Technologist: Resulted: 12/08/2022 08:23 GVS 12/08/2022 08:55 Study Description: US ABD LIMITED ONE ORGAN Study Reason: Cirrhosis TECHNIQUE: Ultrasound abdomen performed using standard protocol. COMPARISON: Lowermost images of chest CT scan 12/23/2021. FINDINGS: There is no ascites evident. LIVER: Liver exhibits cirrhotic appearance. No described focal hepatic lesion. GALLBLADDER/BILIARY: There appears to be a porcelain gallbladder, prominent gallbladder wall shadowing. Also 2.5 cm gallstone noted. No fluid around the gallbladder. The common hepatic duct isnot dilated, measuring 7 mm at the level of dee dee hepatis. PANCREAS: There is no evidence of pancreatic mass nor dilatation of the pancreatic duct. RIGHT KIDNEY:No evidence of solid mass, calculus, nor hydronephrosis. No cortical cysts evident. ABDOMINAL AORTA AND IVC: Visualized portions exhibit normal caliber. IMPRESSION: 1. Cholelithiasis and porcelain gallbladder, as evident on prior CT scan of 12/23/2021. 2. Hepatic cirrhosis. No hepatic lesion identified. 3. There is no ascites. Report Digitally Signed by Lowell Camilo on 12/08/2022 08:55 AM EDT Social History Type Status Start Date End Date Code Code Syst em Smoking History Current some day smoker [id number] SNOMED CT Sex Female Medications Medication Start Date End Date Route Frequency Dose Code Code System Medication Instructions Home Meds HERBAL JOINT/ARTHRITIS SUPPLEMENT 02/23/2018 Unknown BY MOUTH DAILY 1 unit(s) RxNorm TAKE 1 EACH BY MOUTH DAILY Levothyroxine 50MCG Oral Tablet 02/23/2018 Unknown ORAL DAILY 1 TABLET 969774 RxNorm TAKE 1 TABLET ORAL DAILY Claudy Natural Gordon-3 Fish Oil 1000 MG-1 IU Oral Capsule, Liquid Filled 02/23/2018 Unknown ORAL DAILY 1 CAPSULE RxNorm TAKE 1 CAPSULE ORAL DAILY One Daily Women's Oral Tablet 02/23/2018 Unknown ORAL DAILY 1 TABLET [id number] RxNorm TAKE 1 TABLET ORAL DAILY Probiotic Formula 250 MG-1 Billion CFU Oral Capsule 02/23/2018 Unknown ORAL DAILY 1 CAPSULE 7332384 RxNorm TAKE 1 CAPSULE ORAL DAILY VITAMIN D TAB 250MG 02/23/2018 Unknown BY MOUTH NEEDED DAILY 500 MILLIGRAMS RxNorm TAKE 500 MILLIGRAMS BY MOUTH NEEDED DAILY HYDROcodone bitartrate-aceta minophen 5MG-325MG Oral Tablet 12/23/2021 Unknown ORAL DAILY 1 TABLET 845727 RxNorm TAKE 1 TABLET ORAL DAILY Furosemide 20MG Oral Tablet 06/21/2023 Unknown ORAL DAILY 1 TABLET 998574 RxNorm TAKE 1 TABLET ORAL DAILY Assessment [...] Code System BILATERAL LOWER EXTREMITY EDEMA active 681648986 SNOMED-CT DYSPNEA active 284507077 SNOMED-CT THROMBOCYTOPENIA active 745238368 SNO MED-CT HEPATITIS B active 28842800 SNOMED-C T THROMBOCYTOPENIA active 188217633 SNO MED-CT OBSTRUCTIVE SLEEP APNEA active 305882 09 SNOMED-CT HYPOTHYROIDISM active 90212709 SNOME D-CT BILATERAL LOWER EXTREMITY EDEMA active 238829080 SNOMED-CT CHRONIC HEPATITIS C active 965205367 SNOMED-CT Allergies and Adverse Reactions Allergy Substance Reaction Severity Start Date Concern Status Co de Code System No Known Drug Allergies Active 082912858 SNOMED-CT Plan of Treatment Travel 02/03/2021 Lab Draw 11/28/2020 BONE DENSITY DEXA SPINE & HIP 3 US ABDOMEN LIMITED 1 ORGAN 12/08/2022 BONE DENSITY DEXA SPINE & HIP 3 US ABDOMEN LIMITED 1 ORGAN 12/08/2022 Encounters Encounter Diagnosis Start Date Code Code Sys tem Other specified disorders of bone density and structure, multiple sites 12/08/2022 SNOMED-CT Personal Care Team Section Performer Name Performer Role Active Date Inactive Da rigoberto
--- OUTSIDE RECORDS SUMMARY | 2024-05-10 12:49 | XMS_ITS | Encounter Summary ---
Author Organization [facility] Address [address] [place] [address] Care Team Providers Care Concrete Pointer Name Role Phone Anastacio Merlos MD Primary Care Provider Unav ailable Encounter Details Date Type Department Care Team ([facility] Contact Info) Description 05/31/2018 Historical Results Only [facility] Lab - Main [address] [address] Cesar Yo MD Social History Tobacco Use Types Packs/Day Years Used Date Smoking Tobacco: Some Days Smokeless Tobacco: Never Comments:Occasional smoker Alcohol Use Standard Drinks/Week Comments No 0 (1 standard drink = 0.6 oz pur e alcohol) Sex and Gender Information Value Date Recorded Sex Assigned at Not on file Gender Identity Not on file Sexual Orientation Not on file documented as of this encounter Plan of Treatment Not on file documented as of this encounter Procedures Procedure Name Priority Date/Time Associated Diagnosis Comments HEPATITIS B SURFACE ANTIGEN Routine 05/31/2018 14:05 EDT AMMONIA Routine 05/31/2018 14:05 EDT HEPATIC FUNCTION PANEL (ALB,ALK PHOS,ALT,AST,DBIL,T OT BARBARA,TOT PROT) Routine 05/31/2018 14:04 EDT documented in this encounter Results * AMMONIA (05/31/2018 14:05 EDT) Ammonia 12 9.0 - 30.0 umol/L 05/31/2018 14:32 EDT [facility] Comment: Glucose at or above 600 mg/dl can cause a decrease of 8 to 40 umol/L in ammonia concentration. 05/31/2018 14:0 5 EDT 05/31/2018 14:05 EDT [facility] - 05/31/2018 14:32 EDT Does PT Have a Latex Allergy? NO Cesar Yo MD CHEMISTRY & BLOOD GA S ORDERABLES [facility] * HEPATITIS B SURFACE ANTIGEN (05/31/2018 14:05 EDT) Hep B Surface Ag Negative 05/31/2018 15:20 EDT [facility] Comment: Expected Values: ??Negative. The results of this assay can be falsely lowered due to the consumption of Biotin. 05/31/2018 14:0 5 EDT 05/31/2018 14:05 EDT [facility] - 05/31/2018 15:20 EDT Does PT Have a Latex Allergy? NO Cesar Yo MD CHEMISTRY & BLOOD GA S ORDERABLES Performing Organization Address [facility] Co de Phone Number [facility] * (ABNORMAL) HEPATIC FUNCTION PANEL (ALB,ALK PHOS,ALT,AST,DBIL,TOT BARBARA,TOT PROT) (05/31/2018 14:04 EDT) Albumin % 3.5 3.4 - 4.9 g/dL 05/31/2018 14:50 EDT [facility] ALKALINE PHOSPHATASE - [facility] 38 - 126 U/L 05/31/2018 14:50 [facility] BILIRUBIN DIRECT CALC - [facility] 0.4 0.0 - 0.4 mg/dL 05/31/2018 14:50 [facility] BILIRUBIN TOTAL 1.1 0.2 - 1.3 mg/dL 05/31/2018 14:50 [facility] Unconjugated Bilirubin 0.7 0.0 - 1.1 mg/dL 05/31/2018 14:50 [facility] TOTAL PROTEIN - [facility] 7.3 6.2 - 8.2 gm/dL 05/31/2018 14:50 EDT [facility] SGOT/AST - [facility] 40(H) 14 - 36 U/L 05/31/2018 14:50 EDT [facility] SGPT/ALT - [facility] 17 9 - 52 U/L 8 14:50 EDT [facility] 05/31/2018 14:0 4 EDT 05/31/2018 14:05 EDT Narrative [facility] - 05/31/2018 14:50 EDT Does PT Have a Latex Allergy? NO Cesar Yo MD CHEMISTRY & BLOOD GA S ORDERABLES [facility] documented in this encounter Visit Diagnoses Not on filedocumented in this encounter Care Teams Concrete Pointer Relationship Specialty Start Date End Date Anastacio Merlos MD PCP - General 08/12/15 documented as of this encounter
--- OUTSIDE RECORDS SUMMARY | 2024-05-10 12:49 | XMS_ITS | Encounter Summary ---
Author Organization [facility] Address [address] [place] [address] Care Team Providers Care Human Resources Officer Name Role Phone Brianna Wang ND Primary Care Provider [phone] Reason for Visit * Reason Comments Memory Loss * Consult, Test and Treat (Routine) - Closed Specialty Diagnoses / Procedures Referred By Jacoby summers Referred To Contact Psychology Diagnoses Memory loss Anastacio Merlos MD [address] [place] [address] [facility] Memory Program [address] [place] [id number] Referral ID Status Reason Start Date Expiration Date Visits Re quested Visits Authorized [id number] Closed 2 2 Encounter Details Date Type Department Care Team ([facility] Contact Info) Description 07/29/2015 14:00 EST Office Visit [facility] Memory Program - Medical Office Building [address] [place] [address] Zackery Malik, PhD [address] [place] [address] Medical Office Building, [address] [place] [address] Memory loss (Primary Dx); Depression Social History Tobacco Use Types Packs/Day Years Used Date Smoking Tobacco: Never Assessed Sex and Gender Information Value Date Recorded Sex Assigned at Not on file Gender Identity Not on file Sexual Orientation Not on file documented as of this encounter Discharge Diagnoses Diagnosis R41.3 Other amnesia-R41.3[ICD-10-CM] Z01.89 Encounter for other specified special examinations-Z01.89[ICD-10-CM] documented in this encounter Consult Notes * Zackery Malik, PhD - 08/01/2015 2000 EST [facility] MEMORY PROGRAM CONSULTATION - 07/29/2015 PSYCHIATRIC INTERVIEW AND NEUROPSYCHOLOGICAL TESTING Ms Vika Ardon was seen for interview and testing on 07/29/2015. She was referred by Dr Anastacio Merlos ([facility]) and was seen as an outpatient at the Medical Office Building [facility]. PATIENT PROFILE: Ms Ardon was born in [place] and grew up mostly in [place]. Her mother at age 92 with Alzheimer's disease and her father at age 92 also, due to cancer. She is the second of 55 children in her family, with all of her siblings living in other states. She attended high school through the 11th grade and eventually obtained some sort of equivalency degree. She later obtained a BS from [employer] ([place] in 2006 in an online program in Alternative Medicine. She more recently completed an MA from [employer] in 2010 in [employer]. She reports also doing other college work and assorted training programs. 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 She last was employed for 3 years at [employer], but has been out of work since November 2014. She has twice and twice, and has no current relationship. She has two adult sons living in other states; she had a daughter who was recently murdered at age 40. She currently resides alone in subsidized [place], [place]. Her history is significant for hypothyroidism, hepatitis C, and attention deficit disorder. Her family history is notable for her mother having the previously mentioned Alzheimer's disease and her daughter having bipolar disorder. HISTORY OF PRESENTING ILLNESS: Ms Ardon reports that she was being seen today at the Memory Program due to concerns about her forgetfulness. She describes her memory as being more and more fragmented. She has been aware of issues with her memory for about two years and reports a gradual onset and continued decline. She was accompanied to the appointment by an acquaintance, but the person apparently was not adequately knowledgeable of Ms. Ardon's cognitive functioning or daily activities to serve as a supporting source of information. Consequently, all the information below is based on Ms. Ardon's subjective self-report. Ms Ardon reports that her recall of remote information is okay, but she does have some problem recalling recent events. For recall of recent conversations, she sometimes can confuse the content of conversations. For prospective memory, to keep track of appointments and other scheduled activities,she has to write everything down on her calendar, and has to check and recheck multiple times to avoid forgetting things. It was unclear if she has any problems with procedural memory, such as when accessing previously well-learned skills or using familiar technology. She is having problems misplacing paperwork, but she identified no other issues with losing belongings. She reports that she does have problems with word finding when speaking, but identified no other changes with her speech. She acknowledged having some problems with auditory comprehension when following the conversations of others. She reads some every day and has some reported difficulties with reading comprehension and describes her retention of read material as being terrible. She has to focus a good deal in order to w rite anything, and her handwriting and composition both fall apart over time. She denies problems with basic math skills. She indicates that she has significant problems with reasoning, decision making, and planning, citing problems with executive function. She is having difficulty managing the c haos in her life due to being extremely disorganized. Ms Ardon reports that she is managing her basic self-care and personal hygiene reasonably okay. She is not currently taking any medications, indicating that she essentially is against taking pharmaceuticals. She does her own cleaning, cooking and laundry reasonably well, but she does have issues dealing with clutter in her apartment. She manages her own bill paying and finances, but reportedly struggles with the details of these tasks. She reports having a number of overdrafts with her checking account. She drives, although not daily, and identifies no problems with driving safety or navigation in her local community. She reports that she is socially very active in her home community, andis serving on three local agency boards. BEHAVIORAL OBSERVATION AND MENTAL STATUS EXAMINATION: Ms Ardno arrived on time for her appointment, driven here by a friend. She was casually dressed and marginally groomed. She presented with an affect that was borderline weepy on one occasion when discussing the of her daughter. She was an extremely fragmented historian, having great difficulty sticking to the questions at hand. She wasable to participate in all of the formal cognitive testing. She reports that she does have a past history of depression and that her mood is marked by a good deal of residual grief related to her daughter's . She is seeing a psychologist for psychotherapy about twice a month. Her sleep is disrupted and her energy is low. Her appetite is good and she has lost about 25 pounds due to dietary changes. She has occasional passive wishes for , but denies perez suicidal ideation. She denies anhedonia, reporting a number of pleasurable activities that she follows, including kite making, cycling, volleyball, hiking, and civic participation. Hallucinations and delusions were denied. She is an occasional smoker of tobacco and uses no recreational drugs and virtually no alcohol. She obtaineda score of 6 on the Geriatric Depression Scale, which falls in the depressed range. NEUROPSYCHOLOGICAL FINDINGS: Ms Ardon was administered a battery of neuropsychological tests, evaluating a range of cognitive functions. Her performance on these measures is reviewed below. 1. Orientation: She was adequately oriented to self, date/time, place and situation. She was readily able to recall the names of the president, legal service specialist, and state governor. 2. Attention and Processing: She could repeat 6 digits forward and 5 digits backward, which falls in the high average range for her age. She struggled to perform serial 7s, but could spell world backward correctly. Serial tracking was performed in the average range for her age. 3. Communication Skills: Her conversational speech was intelligible in form, but rather tangential in content. Upon testing, confrontation naming was 100% accurate; she could identify 26 of 26 pictures and 14 of 14 objects. Her oral fluency was also intact; she could generate 21 animal names in a minute. She had no problems following multiple-step commands. Her word recognition reading was a little above average for her age. 4. Memory Functioning: She could correctly recall 2 of 3 words after a brief delay. Immediate recall of short stories was low average (16th percentile). Thirty-minute delayed recall of short stories was average (37th percentile); corresponding delayed recognition memory was low average (17-25th percentile). Immediate recall and 30-minute delayed recall of visually-presented spatial material were both average (37th percentile). Corresponding delayed recognition memory of spatial material was high average (>75th percentile). 5. Spatial Organizational Skills: Her block design reproductions were performed in the high averagerange for her age. Her clock drawing and other figure drawings were completely intact. 6. Reasoning Skills: She correctly solved 3 of 3 word-pair similarities, 2 of 3 functional verbal problems, but only 1 of 4 proverb interpretations. 7. Index Scores: She obtained a score of 28 on the Mini-Mental State Examination (MMSE), which falls in the normal range, and a score of 4 on the Alzheimer's Disease Assessment Scale (ADAS), which also falls in the normal range. SUMMARY AND IMPRESSION: Ms Vika Ardon is a 64-year-old, right-handed, woman with about 18 years of education. She comes to the Memory Program with a 2 year self-reported history of memorydecline and mild associated declines in adaptive daily functioning. Upon testing, she is found to be fully oriented and functioning in the average range or better for most aspects of attention/processing, communication skills, and spatial organization. She did have some difficulty with abstractionson verbal reasoning tasks. Her new learning and memory skills were uniformly within normal limits, ranging from low average to high average. I do not see anything in this profile at this point that would point to an emerging neurodegenerative disorder. Her memory scores are perhaps a little lower than would be expected given her other cognitive abilities, but certainly this does not meet criteriaeven for mild cognitive impairment. It would be worth seeing her in about a year for a followup eval uation to make certain that this is not progressing in any fashion. DIAGNOSIS: R41.3 Memory Loss. F32.9 Depression. PLAN: Ms Ardon will be seen for neurological consultation by Dr Ignacio Bella on 08/12/2015 for the second part of her Memory Program workup. TOTAL TIME: 3 hours -- time includes 2 hours of [address] performed by a psychologist and 1 hour of [address] performed by a building maintenance technician (this time was separate from that of the psychologist). Zackery Malik PHD Psychologist - Doctorate 12 55 PM - Zackery Malik, PHD mn Dictation ID: [id number] documented in this encounter Plan of Treatment Not on file documented as of this encounter Visit Diagnoses Diagnosis Memory loss- Primary Depression Depressive disorder, not elsewhere classified documented in this encounter Care Teams Human Resources Officer Relationship Specialty Start Date End Date Brianna Wang ND [address] [place] [phone] PCP - General 03/16/12 08/11/15 documented as of this encounter
--- OUTSIDE RECORDS SUMMARY | 2024-05-10 12:49 | XMS_ITS | Encounter Summary ---
Author Organization [facility] Address [address] [place] [address] Care Team Providers Care Freight Loading Supervisor Name Role Phone Anastacio Merlos MD Primary Care Provider Unav ailable Encounter Details Date Type Department Care Team ([facility] st Contact Info) Description 01/22/2022 Lab Requisition [facility] Pathology & Laboratory Medicine - [facility] [address] [place], [place] [id number] Outr Resulting Lab, Provider Social History Tobacco Use Types Packs/Day Years [...] RNA DETECT QUANT Routine 01/21/2022 16:23 EDT documented in this encounter Results * HCV RNA DETECT QUANT (01/21/2022 16:23 EDT) HCV RNA Qualitative Undetected Undetected 01/25/2022 12:33 EDT [facility] Blood VENOUS BLOOD / Unknown 01/21/2022 16:23 EDT 01/22/2022 16:37 EDT Narrative [facility] - 01/25/2022 12:33 EDT The quantification range of this assay is 15 IU/mL to 100,000,000 IU/mL. Testing was performed using the Alfonso HCV test ([employer] with the alfonso Jumio0 System. Provider Outr Resulting Lab CHEMISTRY & BLOOD GAS ORDERABLES [facility] [address] [place] [address] documented in this encounter Visit Diagnoses Not on filedocumented in this encounter Care Teams Freight Loading Supervisor Relationship Specialty Start Date End Date Anastacio Merlos MD PCP - General 08/12/15 documented as of this encounter
--- OUTSIDE RECORDS SUMMARY | 2024-05-10 12:49 | XMS_ITS | Encounter Summary ---
Author Organization [facility] Address [address] [place] [address] Care Team Providers Care Choir Teacher Name Role Phone Anastacio Merlos MD Primary Care Provider Unav ailable Encounter Details Date Type Department Care Team (Latest Contact Info) Description 01/18/2018 13:27 EDT - 01/18/2018 23:59 EDT Hospital Encounter [facility] [address] [place] [address] Unknown, Provider, Discharge Disposition: Home or Self Care Social History Tobacco Use Types Packs/Day Years Used Date Smoking Tobacco: Some Days Smokeless Tobacco: Never Comments:Occasional smoker Alcohol Use Standard Drinks/Week Comments No 0 (1 standard drink = 0.6 oz pur e alcohol) Sex and Gender Information Value Date Recorded Sex Assigned at Not on file Gender Identity Not on file Sexual Orientation Not on file documented as of this encounter Medications at Time of Discharge Medication Sig Dispensed Refills Start Date End Date levothyroxine (SYNTHROID) 50 mcg tablet Take 50 mcg by mouth daily UNABLE TO FIND Take 1 Cap by mouth daily Med Name: cognishield documented as of this encounter Discharge Disposition Disposition Code Departure Means Destination Home or Self [facility] documented in this encounter Plan of Treatment Not on file documented as of this encounter Visit Diagnoses Not on filedocumented in this encounter Care Teams Choir Teacher Relationship Specialty Start Date End Date Anastacio Merlos MD PCP - General 08/12/15 documented as of this encounter
--- OUTSIDE RECORDS SUMMARY | 2024-05-10 12:49 | XMS_ITS | Encounter Summary ---
Author Organization [facility] Address [address] [place] [address] Care Team Providers Care Tetryl Blender Operator Name Role Phone Anastacio Merlos MD Primary Care Provider Unav ailable Encounter Details Date Type Department Care Team ([facility] Contact Info) Description 10/05/2018 Historical Results Only [facility] - Main [address] [address] Cesar Yo MD Social History Tobacco Use [...] Diagnosis Comments HCV RNA DETECT QUANT Routine 10/05/2018 16:00 EST HEPATIC FUNCTION PANEL (ALB,ALK PHOS,ALT,AST,DBIL,T OT BARBARA,TOT PROT) Routine 10/05/2018 16:00 EST documented in this encounter Results * (ABNORMAL) HEPATIC FUNCTION PANEL (ALB,ALK PHOS,ALT,AST,DBIL,TOT BARBARA,TOT PROT) (10/05/2018 16:00 EST) Albumin % 3.6 3.4 - 4.9 g/dL 10/05/2018 16:48 EST [facility] ALKALINE PHOSPHATASE - [facility] 91 38 - 126 U/L 10/05/2018 16:48 [facility] BILIRUBIN DIRECT CALC - [facility] 0.2 0.0 - 0.4 mg/dL 10/05/2018 16:48 [facility] BILIRUBIN TOTAL 1.4(H) 0.2 - 1.3 mg/dL 10/05/2018 16:48 [facility] Unconjugated Bilirubin 1.2(H) 0.0 - 1.1 mg/dL 10/05/2018 16:48 [facility] TOTAL PROTEIN - [facility] 7.2 6.2 - 8.2 gm/dL 10/05/2018 16:48 [facility] SGOT/AST - [facility] 38(H) 14 - 36 U/L 10/05/2018 16:48 [facility] SGPT/ALT - [facility] 15 9 - 52 U/L 9 16:48 [facility] 10/05/2018 16:0 0 EST 10/05/2018 16:05 EST [facility] - 10/05/2018 16:48 EST COMMENTS: ENDO RECOVERY POD C Does PT Have a Latex Allergy? NO Cesar Yo MD CHEMISTRY & BLOOD GA S ORDERABLES [facility] * HCV RNA DETECT QUANT (10/05/2018 16:00 EST) Pathologist [facility] [place] HCV RNA Quantitative Undetected Undetected IU/mL 10/09/2018 11:02 [facility] Comment: Result in log IU/mL is Undetected. ADDITIONAL INFORMATION The quantification range of this assay is 15 to 100,000,000 IU/mL (1.18 log to 8.00 log IU/mL). Testing was performed using the alfonso HCV test ([employer] with the alfonso 6800 System. Test Performed by: [facility] [place] [address] 10/05/2018 16:0 0 EST 10/05/2018 16:06 EST Narrative [facility] - 10/09/2018 11:02 EST COMMENTS: ENDO RECOVERY POD C Does PT Have a Latex Allergy? NO Cesar Yo MD CHEMISTRY & BLOOD GA S ORDERABLES [facility] documented in this encounter Visit Diagnoses Not on filedocumented in this encounter Care Teams Tetryl Blender Operator Relationship Specialty Start Date End Date Anastacio Merlos MD PCP - General 08/12/15 documented as of this encounter
--- OUTSIDE RECORDS SUMMARY | 2024-05-10 12:49 | XMS_ITS | Encounter Summary ---
Author Organization [facility] Address [address] [place] [address] Care Team Providers Care Station Mechanic Name Role Phone Brianna Wang ND Primary Care Provider [phone] Reason for Visit * Reason Onset Date Comments Appointment Related 03/16/2012 Encounter Details Date Type Department Care Team ([facility] st Contact Info) Description 03/16/2012 Telephone [facility] Dermatology 5th Floor [facility] [address] [place], [place] [id number] Yolis Dempsey RN Appointment Related Social History Tobacco Use Types Packs/Day Years Used Date Smoking Tobacco: Never Assessed Sex and Gender Information Value Date Recorded Sex Assigned at Not on file Gender Identity Not on file Sexual Orientation Not on file documented as of this encounter Miscellaneous Notes * Telephone Encounter - Yolis Dempsey RN - 03/16/2012 1019 EDT Received a referral from Brianna Wang ND referring patient for acrochordon on inner thigh and lesions on her scalp. Contacted the patient. She states that the has a large painful skin tag on the inside of her thigh that she would like removed as soon as possible. Patient also states she has a 1/2inch diameter non painful lump on her scalp that she thinks is a cyst. Per Dr. Francisco Melendez [place] to schedule patient in surgery slot. Patient scheduled 03/21/2012 TUE 3:30P FRANCISCO OHARA MD. YOLIS DEMPSEY RN 03/16/2012 10:27 documented in this encounter Plan of Treatment Not on file documented as of this encounter Visit Diagnoses Not on filedocumented in this encounter Care Teams Station Mechanic Relationship Specialty Start Date End Date Brianna Wang ND [address] [place] [phone] PCP - General 03/16/12 08/11/15 documented as of this encounter
--- OUTSIDE RECORDS SUMMARY | 2024-05-10 12:49 | XMS_ITS | Encounter Summary ---
Author Organization Health system Address [address] [place] [address] Care Team Providers Care Judicial Clerk Name Role Phone Brianna Wang ND Primary Care Provider [phone] Encounter Details Date Type Department Care Team ([facility] st Contact Info) Description 03/21/2012 Results Only [facility] Dermatology 5th Floor [facility] [address] [place] [address] Julio Vaughan MD [address] [place] [address] Social History Tobacco Use Types Packs/Day Years Used Date Smoking Tobacco: Never Assessed Sex and Gender Information Value Date Recorded Sex Assigned at Not on file Gender Identity Not on file Sexual Orientation Not on file documented as of this encounter Plan of Treatment Not on file documented as of this encounter Procedures Procedure Name Priority Date/Time Associated Diagnosis Comments SURGICAL PATHOLOGY Routine 03/21/2012 0:00 EDT documented in this encounter Results * SURGICAL PATHOLOGY (03/21/2012 0:00 EDT) Pathology Report: SURGICAL PATHOLOGY REPORT Reports generated via electronic interface contain original data; however they are lacking the format of the original report. Caution should be taken when reading/interpreti ng unformatted reports. Name: ? VIKA MONTES ? Accession #: ? [id number] ? : ? 1950 (Age: 61) ??F ? N #: ? [id number] ? Collect Date: ? 03/21/2012 ? Location: ? [facility] ? Receive Date: ? 03/23/2012 ? Provider: JULIO VAUGHAN MD Copy to: ? Final Pathologic Diagnosis: A. ?Skin of scalp, right frontal, excision: 1. ?Follicular cyst, isthmic-catagen type (pilar cyst). ?? B. ?Skin of thigh, right medial, shave biopsy: 1. ?Fibroepithelial skin tag. Microscopic Description: (A) ?There is a cyst that is lined by squamous epithelium that shows trichilemmal differentiation. ??The cyst is filled with compact orthokeratin. There is calcification. ?? (B) ?There is a polypoid papule with a papillated epidermal surface. The stratum corneum is composed of a relatively normal layer of orthokeratin. The dermis is composed of loose fibrous connective tissue and dilated vessels. (Dr. Campos)/n Document reviewed and electronically signed by: CALEB CAMPOS MD Report ??Date: 03/24/2012 12:23 By the signature above, the attending physician certifies that he/she has personally conducted a gross and/or microscopic examination of the described specimens and rendered or confirmed the above diagnosis. Specimen(s) Received: A. ?Right frontal scalp B. ? Right medial thigh Clinical History: ? A. Cystic nodule on scalp; EIC, dermoid, other; B. Pedunculated papule on thigh; acrochordon, wart, other; clinical diagnosis code: ??239.2 Gross Description: ? Received in formalin labelled Vika Montes and right frontal scalp is an unoriented, elliptical excision of skin which measures 2.1 x 0.6 cm and is excised to a depth of 0.4 cm. ??It is surfaced with mazariegos, hairbearing skin with scattered, brown pigmentation. ??This specimen is inked blue. ??This specimen is serially sectioned and entirely submitted as (A1) and (A2) central sections, and (A3) tips, reverse en face. ??Separately received is a white-mazariegos, firm, ovoid piece of tissue which measures 1.5 x 1.4 x 0.8 cm. ??Cut surfaces reveal a mazariegos, smooth, homogeneous surface. ??This specimen is inked black, serially sectioned, and entirely submitted as (A4) ??(A6). Received in formalin labelled Vika Montes and right medial thigh is a 0.7 x 0.6 x 0.6 cm shave biopsy of a mazariegos, wrinkled papule. ??This specimen is trisected and entirely submitted as (B). ??(Antonia Arriaga)/[facility] End of Report [facility] 03/21/2012 03/23/2012 11: 08 EDT Julio Vaughan MD PATHOLOGY ORD ERABLES [facility] [address] [place] [address] documented in this encounter Visit Diagnoses Not on filedocumented in this encounter Care Teams Judicial Clerk Relationship Specialty Start Date End Date Brianna Wang ND [address] [place] [phone] PCP - General 03/16/12 08/11/15 documented as of this encounter
--- OUTSIDE RECORDS SUMMARY | 2024-05-10 12:49 | XMS_ITS | Encounter Summary ---
Author Organization [facility] Address [address] [place] [address] Care Team Providers Care Materials Management Manager Name Role Phone Anastacio Merlos MD Primary Care Provider Unav ailable Encounter Details Date Type Department Care Team ([facility] Contact Info) Description 01/18/2018 Historical Results Only [facility] Radiology Results [address] [place], [place] [phone] Cesar Yo MD Social History Tobacco Use [...] Diagnosis Comments HCV RNA DETECT QUANT Routine 01/18/2018 9:15 EDT AFP TUMOR MARKER Routine 01/18/2018 9:15 EDT HEPATITIS B CORE ANTIBODY (TOTAL) Routine 01/18/2018 9:15 EDT HEPATITIS B SURFACE ANTIBODY Routine 01/18/2018 9:15 EDT HEPATITIS B SURFACE ANTIGEN Routine 01/18/2018 9:15 EDT US ABDOMEN LIMITED 01/18/2018 8:47 EDT documented in this encounter Results * HEPATITIS B SURFACE ANTIGEN (01/18/2018 9:15 EDT) Pathologist [facility] Hep B Surface Ag Negative 01/18/2018 11:19 EDT [facility] Comment:Expected Values: Neg ative. 01/18/2018 9:15 EDT 01/18/2018 9:15 EDT [facility] - 01/18/2018 11:19 EDT Does PT Have a Latex Allergy? NO Cesar Yo MD CHEMISTRY & BLOOD GA S ORDERABLES Performing Organization Address [facility] Co de Phone Number [facility] * HEPATITIS B SURFACE ANTIBODY (01/18/2018 9:15 EDT) [facility] Hep B Surface Ab, Qualitative 0.7 01/18/2018 11:19 EDT [facility] Comment: ?Interpretative Guidelines < 5.00 mIU/mL = ?Negative Clinical Interpretation of Immune Status: Patient is considered to be not immune to infection with HBV. 01/18/2018 9:15 EDT 01/18/2018 9:15 EDT [facility] - 01/18/2018 11:19 EDT Does PT Have a Latex Allergy? NO Cesar Yo MD CHEMISTRY & BLOOD GA S ORDERABLES Performing Organization Address [facility] Co de Phone Number [facility] * HCV RNA DETECT QUANT (01/18/2018 9:15 EDT) [facility] HCV RNA Quantitative 1,350,00 0 Undetected IU/mL 01/20/2018 18:09 EDT [facility] Comment: Result in log IU/mL is 6.13. ADDITIONAL INFORMATION The quantification range of this assay is 15 to 100,000,000 IU/mL (1.18 log to 8.00 log IU/mL). Testing was performed using the alfonso HCV test ([employer] with the alfonso 6800 System. Test Performed by: [facility] [address] [place] [address] 01/18/2018 9:15 EDT 01/18/2018 9:15 EDT [facility] - 01/20/2018 18:09 EDT Does PT Have a Latex Allergy? NO Cesar Yo MD CHEMISTRY & BLOOD GA S ORDERABLES Performing Organization Address [facility] Co de Phone Number [facility] * (ABNORMAL) HEPATITIS B CORE ANTIBODY (TOTAL) (01/18/2018 9:15 EDT) Hepatitis B Core Ab, Total Positive( A) NEGAT 01/20/2018 18:09 EDT [facility] Comment: Indicates either remote past infection OR window period between disappearance of HBsAg and appearance of HBsAb. ?? The results of this assay can be falsely lowered due to the consumption of Biotin. Test Performed by: [place] [address] Nat Instructor: Misael Harris MD , Ph D 01/18/2018 9:15 EDT 01/18/2018 9:15 EDT [facility] - 01/20/2018 18:09 EDT Does PT Have a Latex Allergy? NO Cesar Yo MD CHEMISTRY & BLOOD GA S ORDERABLES Performing Organization Address [facility] Co de Phone Number [facility] * (ABNORMAL) AFP TUMOR MARKER (01/18/2018 9:15 EDT) ALPHA-FETOPROTEIN TUMOR MARKER - [facility] 18.7(A) <8.1 ng/mL 01/20/2018 18:09 EDT [facility] Comment: AFP tumor marker cannot be interpreted in females. ?? Serum AFP concentration should not be interpreted as absolute evidence for the presence or absence of malignant disease. ?? Assayed utilizing Siemens chemiluminescent technology. Values obtained by using different assay methods cannot be used interchangeably. Test Performed by: [place] [address] Nat Instructor: Misael Harris MD , Ph D 01/18/2018 9:15 EDT 01/18/2018 9:15 EDT Narrative [facility] - 01/20/2018 18:09 EDT Does PT Have a Latex Allergy? NO Cesar Yo MD CHEMISTRY & BLOOD GA S ORDERABLES [facility] * US ABDOMEN LIMITED (01/18/2018 8:47 EDT) Anatomical Region Laterality Modality Abdomen, Body Other 01/18/2018 8:47 EDT Narrative 01/18/2018 8:50 EDT ? EXAM: ULTRASOUND/RIGHT UPPER QUADRANT ? EX. D/ (0757) ? CLINICAL INFORMATION: ? CIRRHOSIS. ??R/O MASS LESION. ? RIGHT UPPER QUADRANT ? Signs and Symptoms/Comments: ??CIRRHOSIS. ??R/O MASS LESION. ? Comparison: None available ? Technique: Right upper quadrant abdominal ultrasound was performed ? with color Doppler imaging. ? FINDINGS: ? Pancreas: The visible portion of the pancreas is grossly ? unremarkable. ? Liver: The liver demonstrates a moderately heterogeneous echotexture, ? compatible with provided history of cirrhosis. The liver is normal in ? size (measuring 16.7 cm). No focal hepatic mass is identified. ? Bile Ducts: There is no intrahepatic or extrahepatic biliary ductal ? dilatation. The common bile duct measures 3.3 mm. ? Gallbladder: The gallbladder is abnormal. The appearance is ? suggestive of a calcified wall with associated shadowing, although ? the wall echo shadow appearance of cholelithiasis should also be ? considered. At least one gallstone is evident within the gallbladder. ? Right Kidney: The right kidney measures 12.5 cm and shows no ? sonographic evidence of hydronephrosis, mass or shadowing calculus. ? IVC: The visible portion of the proximal IVC is unremarkable. ? IMPRESSION: ? 1. Heterogeneous echotexture of the liver, compatible with provided ? history of cirrhosis. No focal hepatic lesion detected. ? 2. 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 The differential also includes the wall echo shadow ? appearance of cholelithiasis. Recommend CT for confirmation. ? This report has been flagged for a noncritical result requiring ? PAGE 1 ? Signed Report ? (CONTINUED) ? follow-up on the [employer] PACS findings application, to be tracked by ? the [facility] tracking system. ? REPORT SIGNED IN OTHER VENDOR SYSTEM 01/18/2018 ?Reported By: Malachi Alejandra MD ? CC: ? Transcribed Date/Time: 01/18/2018 (0850) ? Drying Room Attendant: ? Printed Date/Time: 03/09/2019 (1230) ? PAGE 2 ? Signed Report ? Procedure Note Malachi Alejandra E - 07/26/2019 EXAM: ULTRASOUND/RIGHT UPPER QUADRANT EX. D/ (0757) CLINICAL INFORMATION: CIRRHOSIS. R/O MASS LESION. RIGHT UPPER QUADRANT Signs and Symptoms/Comments: CIRRHOSIS. R/O MASS LESION. Comparison: None available Technique: Right upper quadrant abdominal ultrasound was performed with color Doppler imaging. FINDINGS: Pancreas: The visible portion of the pancreas is grossly unremarkable. Liver: The liver demonstrates a moderately heterogeneousechotexture, compatible with provided history of cirrhosis. The liver is normalin size (measuring 16.7 cm). No focal hepatic mass is identified. Bile Ducts: There is no intrahepatic or extrahepatic biliary ductal dilatation. The common bile duct measures 3.3 mm. Gallbladder: The gallbladder is abnormal. The appearance is suggestive of a calcified wall with associated shadowing, although the wall echo shadow appearance of cholelithiasis should also be considered. At least one gallstone is evident within thegallbladder. Right Kidney: The right kidney measures 12.5 cm and shows no sonographic evidence of hydronephrosis, mass or shadowing calculus. IVC: The visible portion of the proximal IVC is unremarkable. IMPRESSION: 1. Heterogeneous echotexture of the liver, compatible with provided history of cirrhosis. No focal hepatic lesion detected. 2. 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 The differential also includes the wall echo shadow appearance of cholelithiasis. Recommend CT for confirmation. This report has been flagged for a noncritical result requiring PAGE 1 Signed Report (CONTINUED) follow-up on the [employer] PACS findings application, to be tracked by the [facility] tracking system. REPORT SIGNED IN OTHER VENDOR SYSTEM 01/18/2018 Reported By: Malachi Alejandra MD CC: Transcribed Date/Time: 01/18/2018 (0850) Drying Room Attendant: Printed Date/Time: 03/09/2019 (6215) PAGE 2 Signed Report Cesar Yo MD IMG US ORDERABLES documented in this encounter Visit Diagnoses Not on filedocumented in this encounter Care Teams Materials Management Manager Relationship Specialty Start Date End Date Anastacio Merlos MD PCP - General 08/12/15 documented as of this encounter
--- OUTSIDE RECORDS SUMMARY | 2024-05-10 12:49 | XMS_ITS | Encounter Summary ---
Author Organization [facility] Address [address] [place] [address] Care Team Providers Care Adventure Therapist Name Role Phone Anastacio Merlos MD Primary Care Provider Unav ailable Encounter Details Date Type Department Care Team ([facility] st Contact Info) Description 04/19/2018 Historical Results Only [facility] - Main [place] [address] [place] [id number] Cesar Yo MD Social History Tobacco Use [...] Procedure Name Priority Date/Time Associated Diagnosis Comments COMPLETE BLOOD COUNT WITH DIFFERENTIAL (AUTO) Routine 04/19/2018 11:50 EDT AFP TUMOR MARKER Routine 04/19/2018 11:5 0 EDT HEPATITIS B SURFACE ANTIGEN Routine 04/19/2018 11:50 EDT COMPREHENSIVE METABOLIC PANEL (CMP) Routine 04/19/2018 11:50 EDT documented in this encounter Results * (ABNORMAL) COMPREHENSIVE METABOLIC PANEL (CMP) (04/19/2018 11:50 EDT) Albumin % 3.4 3.4 - 4.9 g/dL 04/19/2018 13:05 [facility] ALKALINE PHOSPHATASE - [facility] [place] [place] 99 38 - 126 U/L 04/19/2018 13:05 [facility] BILIRUBIN TOTAL 1.1 0.2 - 1.3 mg/dL 04/19/2018 13:05 [facility] BUN - [facility] [place] [place] 8(L) 10 - 26 mg/dL 04/19/2018 13:05 [facility] CALCIUM - [facility] [place] [place] 9.4 8.5 - 10.5 mg/dL 04/19/2018 13:05 [facility] Chloride 106 96 - 110 mmol/L 04/19/2018 13:05 [facility] CO2 Total 24 22 - 32 mEq/L 04/19/2018 13:05 [facility] CREATININE 0.51(L) 0.52 - 1.04 mg/dL 04/19/2018 13:05 [facility] eGFR >60 04/19/2018 13:05 [facility] Comment: Chronic renal impairment is defined as GFR <60 Multiply result by 1.210 for patients. eGFR calculated using the IDMS-traceable MDRD Study Equation. ??(effective 07/22/2014) Anion Gap 8 0 - 18 04/19/2018 13:05 [facility] GLUCOSE - [facility] [place] [place] 125(H) 70 - 100 mg/dL 04/19/2018 13:05 [facility] Potassium 4.0 3.5 - 5.0 mEq/L 04/19/2018 13:05 [facility] Sodium 138 136 - 145 mEq/L 04/19/2018 13:05 [facility] TOTAL PROTEIN - [facility] [place] [place] 6.9 6.2 - 8.2 gm/dL 04/19/2018 13:05 [facility] SGOT/AST - [facility] [place] [place] 37(H) 14 - 36 U/L 04/19/2018 13:05 [facility] SGPT/ALT - [facility] [place] [place] 22 9 - 52 U/L 8 13:05 [facility] 04/19/2018 11:5 0 EDT 04/19/2018 11:50 EDT Narrative [facility] - 04/19/2018 13:05 EDT Does PT Have a Latex Allergy? NO Cesar Yo MD CHEMISTRY & BLOOD GA S ORDERABLES [facility] * HEPATITIS B SURFACE ANTIGEN (04/19/2018 11:50 EDT) Hep B Surface Ag Negative 04/19/2018 13:35 EDT [facility] Comment:Expected Values: Neg ative. 04/19/2018 11:5 0 EDT 04/19/2018 11:50 EDT [facility] - 04/19/2018 13:35 EDT Does PT Have a Latex Allergy? NO Cesar Yo MD CHEMISTRY & BLOOD GA S ORDERABLES Performing Organization Address [facility] Co de Phone Number [facility] * (ABNORMAL) COMPLETE BLOOD COUNT WITH DIFFERENTIAL (AUTO) (04/19/2018 11:50 EDT) ABSOLUTE NEUTROPHIL COUN - [facility] 2.26 1.7 - 7.0 10e3/ul 04/19/2018 12:45 EDT [facility] BASO # - [facility] 0 0.0 - 0.3 10e3/uL 04/19/2018 12:45 EDT [facility] BASO % - [facility] 0 0 - 2 % 04/19/2018 12:45 EDT [facility] EOS # - [facility] 0.12 0.05 - 0.5 10e3/uL 04/19/2018 12:45 EDT [facility] EOS % - [facility] 3 0 - 5 % 04/19/2018 12:45 EDT [facility] GRAN % - [facility] 50 40 - 80 % 04/19/2018 12:45 EDT [facility] HEMATOCRIT - [facility] 39.3 34.0 - 47.0 % 04/19/2018 12:45 EDT [facility] HEMOGLOBIN - [facility] 13.5 11.2 - 15.7 g/dl 04/19/2018 12:45 [facility] IG# - [facility] 0 0 - 0.07 10e3/uL 04/19/2018 12:45 [facility] IG% - [facility] 0 0 - 0.9 % 04/19/2018 12:45 [facility] LYMPH # - [facility] 1.80 0.9 - 2.9 10e3/uL 04/19/2018 12:45 [facility] LYMPH% - [facility] 40 20 - 40 % 04/19/2018 12:45 [facility] MEAN CORPUSCULAR HGB - [facility] [place] [place] 31.5 26 - 34 pg 04/19/2018 12:45 [facility] MEAN CORPUSCULAR HGB CONC - [facility] [place] [place] 34.4 31 - 36 g/dL 04/19/2018 12:45 [facility] MEAN CELL VOLUME - [facility] [place] [place] 91.8 77 - 100 fl 04/19/2018 12:45 [facility] MONO # - [facility] 0.35 0.3 - 0.9 10e3/uL 04/19/2018 12:45 [facility] MONO% - [facility] 8 0 - 12 % 04/19/2018 12:45 [facility] PLATELET COUNT 77(L) 150 - 400 10e3/ul 04/19/2018 12:45 [facility] RED BLOOD COUNT - [facility] [place] [place] 4.28 3.8 - 5.2 10e6/ul 04/19/2018 12:45 [facility] RED CELL DISTRI WIDTH - [facility] [place] [place] 13.3 11.8 - 15.6 % 04/19/2018 12:45 [facility] WHITE BLOOD COUNT - [facility] [place] [place] 4.5 3.5 - 10.5 10e3/ul 04/19/2018 12:45 [facility] 04/19/2018 11:5 0 EDT 04/19/2018 11:50 T [facility] - 04/19/2018 12:45 EDT Does PT Have a Latex Allergy? NO Cesar Yo MD HEMATOLOGY & PF4 ORD ERABLES [facility] * (ABNORMAL) AFP TUMOR MARKER (04/19/2018 11:50 EDT) ALPHA-FETOPROTEIN TUMOR MARKER - [facility] [place] [place] 9.4(A) <8.1 ng/mL 04/20/2018 14:30 EDT [facility] Comment: AFP tumor marker cannot be interpreted in females. ?? Serum AFP concentration should not be interpreted as absolute evidence for the presence or absence of malignant disease. ?? Assayed utilizing Siemens chemiluminescent technology. Values obtained by using different assay methods cannot be used interchangeably. Test Performed by: [place] [id number] 04/19/2018 11:5 0 EDT 04/19/2018 11:50 EDT Narrative [facility] - 04/20/2018 14:30 EDT Does PT Have a Latex Allergy? NO Cesar Yo MD CHEMISTRY & BLOOD GA S ORDERABLES [facility] documented in this encounter Visit Diagnoses Not on filedocumented in this encounter Care Teams Adventure Therapist Relationship Specialty Start Date End Date Anastacio Merlos MD PCP - General 08/12/15 documented as of this encounter
--- OUTSIDE RECORDS SUMMARY | 2024-05-10 12:49 | XMS_ITS | Encounter Summary ---
Author Organization [facility] Address [address] [place] [address] Care Team Providers Care Data Warehousing Engineer Name Role Phone Brianna Wang ND Primary Care Provider [phone] Encounter Details Date Type Department Care Team ([facility] st Contact Info) Description 03/28/2015 Orders Only [facility] Memory Program - Medical Office Building [address], [place] [id number] Ignacio Bella MD [address] [facility] Medical Office Building, [address] [place] [phone] Memory loss (Primary Dx) Social History Tobacco Use Types Packs/Day Years Used Date Smoking Tobacco: Never Assessed Sex and Gender Information Value Date Recorded Sex Assigned at Not on file Gender Identity Not on file Sexual Orientation Not on file documented as of this encounter Plan of Treatment Not on file documented as of this encounter Procedures Procedure Name Priority Date/Time Associated Diagnosis Comments CT HEAD WO CONTRAST 07/29/2015 1 5:57 EST documented in this encounter Results * SYPHILIS SEROLOGY (07/29/2015 16:40 EST) Syphilis Serology Negative 07/30/2015 13:31 EST [facility] Comment:Reference Range: Neg ative Blood specimen (specimen) BLOOD SPECIMEN / Unknown 07/29/2015 16:40 EST 07/29/2015 18:55 EST Ignacio Bella MD IMMUNOLOGY AND S EROLOGY ORDERABLES [facility] [address] [place] [address] * VITAMIN B12 (07/29/2015 16:40 EST) Vitamin B-12 507 211 - 911 pg/ml 07/29/2015 20:34 [facility] Blood specimen (specimen) BLOOD SPECIMEN / Unknown 07/29/2015 16:40 EST 07/29/2015 18:55 EST Ignacio Bella MD CHEMISTRY & BLOO D GAS ORDERABLES Performing Organization Address City/State/[facility] Co de Phone Number [facility] [address] [place] [address] * (ABNORMAL) HEMAGRAM AND DIFFERENTIAL (07/29/2015 16:40 EST) Pathologist [facility] [place] WBC 6.26 4.0 - 12.4 K/cmm 07/29/2015 19:16 [facility] RBC 4.84 3.86 - 5.04 M/cmm 07/29/2015 19:16 [facility] Hemoglobin 14.1 11.6 - 15.2 gm/dl 07/29/2015 19:16 [facility] HCT 42.2 34.9 - 44.4 % 07/29/2015 19:16 [facility] MCV 87 81 - 98 fl 07/29/2015 19:16 [facility] MCH 29.0 26.7 - 33.3 pg 07/29/2015 19:16 [facility] MCHC 33.3 32.1 - 35.9 gm/dl 07/29/2015 19:16 [facility] RDW-CV 13.5 11.7 - 14.6 % 07/29/2015 19:16 [facility] RDW-SD 41.1 37.6 - 50.3 fl 07/29/2015 19:16 [facility] PLT 121(L) 141 - 320 K/cmm 07/29/2015 19:16 [facility] MPV 8.8 7.5 - 11.2 fl 07/29/2015 19:16 [facility] % Neutrophils 58.4 45.5 - 79.7 % 07/29/2015 19:16 [facility] % Lymphocytes 33.1 15.0 - 46.8 % 07/29/2015 19:16 [facility] % Monocytes 6.4 1.8 - 12.0 % 07/29/2015 19:16 [facility] % Eosinophils 1.4 0.6 - 6.9 % 07/29/2015 19:16 [facility] % Basophils 0.7 0.2 - 1.4 % 07/29/2015 19:16 [facility] ABS Neutrophils 3.66 2.20 - 8.85 K/cmm 07/29/2015 19:16 [facility] ABS Lymphs 2.07 1.09 - 3.30 K/cmm 07/29/2015 19:16 [facility] ABS Monocytes 0.40 0.1 - 0.8 K/cmm 07/29/2015 19:16 [facility] ABS Eosinophils 0.09 0.03 - 0.61 K/cmm 07/29/2015 19:16 [facility] ABS Basophils 0.05 0.01 - 0.11 K/cmm 07/29/2015 19:16 [facility] Type of Diff: Automated 07/29/2015 19:16 [facility] Blood specimen (specimen) BLOOD SPECIMEN / Unknown 07/29/2015 16:40 EST 07/29/2015 18:55 EST Ignacio Bella MD PACKAGES & DNA P VANESA ORDERABLES [facility] [address] [place] [address] * (ABNORMAL) COMPREHENSIVE METABOLIC PANEL (CMP) (07/29/2015 16:40 EST) Potassium 3.8 3.5 - 5.0 mEq/L 07/29/2015 19:46 [facility] Sodium 139 136 - 145 mEq/L 07/29/2015 19:46 [facility] Chloride 102 96 - 110 mEq/L 07/29/2015 19:46 [facility] CO2 25 24 - 32 mEq/L 07/29/2015 19:46 [facility] Total Alkaline Phosphatase 110 38 - 126 U/L 07/29/2015 19:46 [facility] Bilirubin, Total 0.6 <1.4 mg/dl 07/29/20 15 19:46 [facility] AST 149(H) 15 - 46 U/L 07/29/2015 19:46 [facility] ALT 67(H) <53 U/L 07/29/2015 19:46 [facility] Albumin 4.0 3.4 - 4.9 g/dl 07/29/2015 19:46 [facility] Total Protein 7.6 6.3 - 8.2 g/dl 07/29/2015 19:46 [facility] Creatinine 0.55 0.52 - 1.04 mg/dl 07/29/2015 19:46 [facility] GFR, Calculated 98 >60 ml/min/1.7 3m2 07/29/2015 19:46 [facility] Comment: eGFR calculated using CKD-EPI equation for non Americans. Multiply eGFR by 1.16 for Americans. BUN 13 10 - 26 mg/dl 07/29/2015 19:46 [facility] Calcium 9.2 8.5 - 10.5 mg/dl 07/29/2015 19:46 [facility] Calculated Calcium 9.6 8.5 - 10.5 mg/dl 07/29/2015 19:46 [facility] Glucose, Serum 79 70 - 100 mg/dl 07/29/2015 19:46 [facility] Fasting? No 07/29/2015 16:42 [facility] Blood specimen (specimen) BLOOD SPECIMEN / Unknown 07/29/2015 16:40 EST 07/29/2015 18:55 EST Ignacio Blela MD CHEMISTRY & BLOO D GAS ORDERABLES [facility] [address] [place] [id number] * CT HEAD WO CONTRAST (07/29/2015 15:57 EST) Anatomical Region Laterality Modality Other 07/29/2015 15:5 7 EST 07/29/2015 16:10 EST Narrative 07/29/2015 16:[address] of the head July 29, 2015. History: Memory loss. Comparison: None. Technique: CT images were acquired from the vertex through the foramen magnum. Findings: There is no intracranial mass or hemorrhage and no extra-axial collections are present. Patchy areas of hypoattenuation are present within the white matter, nonspecific, and suggesting chronic white matter change. There is ventricular enlargement which is somewhat out of proportion to the degree of sulcal enlargement. The basal cisterns are patent. There is no evidence of large vascular territory infarct. There has been prior lens extraction. The orbits appear otherwise unremarkable. The paranasal sinuses and mastoid air cells are clear. There is a calcification within the scalp posteriorly on the right which likely reflects a calcified sebaceous cyst. Impression: 1. No evidence of intracranial mass or hemorrhage. 2. Ventricular enlargement is out of proportion to the degree of sulcal enlargement. This may be seen the setting of normal pressure hydrocephalus, although this is a clinical diagnosis. 3. Chronic white matter changes. Procedure Note Rudi Edwards MD - 07/29/2015 CT of the head July 29, 2015. History: Memory loss. Comparison: None. Technique: CT images were acquired from the vertex through the foramen magnum. Findings: There is no intracranial mass or hemorrhage and no extra-axial collections are present. Patchy areas of hypoattenuation are present within the white matter, nonspecific, and suggesting chronic white matter change. There is ventricular enlargement which is somewhat out of proportion to the degree of sulcal enlargement. The basal cisterns are patent. There is no evidence of large vascular territory infarct. There has been prior lens extraction. The orbits appear otherwise unremarkable. The paranasal sinuses and mastoid air cells are clear. There is a calcification within the scalp posteriorly on the right which likely reflects a calcified sebaceous cyst. Impression: 1. No evidence of intracranial mass or hemorrhage. 2. Ventricular enlargement is out of proportion to the degree of sulcal enlargement. This may be seen the setting of normal pressure hydrocephalus, although this is a clinical diagnosis. 3. Chronic white matter changes. Ignacio Bella MD IMG CT ORDERABLE S documented in this encounter Visit Diagnoses Diagnosis Memory loss- Primary documented in this encounter Care Teams Data Warehousing Engineer Relationship Specialty Start Date End Date Brianna Wang ND [address] [place] [phone] PCP - General 03/16/12 08/11/15 documented as of this encounter
--- OUTSIDE RECORDS SUMMARY | 2024-05-10 12:49 | XMS_ITS | Encounter Summary ---
Author Organization [facility] Address [address] [place] [address] Care Team Providers Care Water Proofer Name Role Phone Anastacio Merlos MD Primary Care Provider Unav ailable Encounter Details Date Type Department Care Team (Latest Contact Info) Description 06/12/2018 15:05 EDT - 06/12/2018 23:59 EDT Hospital Encounter [facility] [address] [place] [address] Unknown, Provider, Discharge Disposition: Home or Self [...] Code Departure Means Destination Home or Self Snf documented in this encounter Plan of Treatment Not on file documented as of this encounter Visit Diagnoses Not on filedocumented in this encounter Care Teams Water Proofer Relationship Specialty Start Date End Date Anastacio Merlos MD PCP - General 08/12/15 documented as of this encounter
--- OUTSIDE RECORDS SUMMARY | 2024-05-10 12:49 | XMS_ITS | Encounter Summary ---
Author Organization [facility] Address [address] [place] [address] Care Team Providers Care Beef Skinner Name Role Phone Anastacio Merlos MD Primary Care Provider Unav ailable Reason for Visit * Reason Comments New Patient Visit calculus of gallblad idalia * Consult (Routine) - Closed Specialty Diagnoses / Procedures Referred By Jacoby summers Referred To Contact General Surgery Diagnoses Gallbladder calculus Anastacio Merlos MD [address] [place] [address] Obinna Ladd MD [address] [place] [address] Referral ID Status Reason Start Date Expiration Date Visits Re quested Visits Authorized [id number] Closed 1 1 Encounter Details Date Type Department Care Team (Late st Contact Info) Description 07/17/2018 15:00 EDT Office Visit [facility] General Surgery - Main [place] [address], [place] [address] Obinna Ladd MD [address] [place] [address] Abnormal gall bladder diagnostic imaging (Primary Dx) Discharge Disposition: Auto Discharge Social History Tobacco Use Types Packs/Day Years [...] on file documented as of this encounter Last Filed Vital Signs Vital Sign Reading Time Taken Comments Blood Pressure - - Pulse 72 07/17/2018 1512 EDT Temperature - - Respiratory Rate 16 07/17/2018 1512 EDT Oxygen Saturation - - Inhaled Oxygen Concentration - - Weight 90.7 kg (200 lb) 07/17/2018 1512 EDT Height 157.5 cm (5' 2) 07/17/2018 1512 EDT Body Mass Index 36.58 07/17/2018 1512 EDT documented in this encounter Discharge Diagnoses Diagnosis R93.2 Abnormal findings on diagnostic imaging of liver and biliary tract-R93.2[ICD-10-CM] documented in this encounter Discharge Disposition Disposition Code Departure Means Destination Auto Discharge documented in this encounter Progress Notes * Obinna Ladd MD - 07/17/2018 1500 EDT [facility] General Surgery Consultation Note - Initial Visit Note Date: 07/17/2018 Patient: Vika Ardon Subjective: Vika Ardon is a 67 y.o. female who presents today for New Patient Visit (calculus of gallbladder) I am seeing Vika Ardon in consultation, at the request of Anastacio Merlos, for porcelain gallbladder. Patient History of Present Illness: Abdominal Pain Pain location: none Pain radiates to: None Pain severity: none Duration: N/A incidental finding on CT in 05/2018, (+) Liver cirrhosis Timing: n/a Relieved by: Nothing Worsened by: nothing Associated symptoms: None Associated symptoms: no dysuria . No fever, Jaundice or chills. The patient's problem list, allergies, immunizations, and medications were documented, reviewed, and updated as follows: Patient Active Problem List Diagnosis ??? Cataracts, bilateral ??? Rosacea ??? Hepatitis C ??? Hypothyroidism ??? JOVITA (obstructive sleep apnea) ??? Stress incontinence, female ??? Depression ??? ADD (attention deficit disorder) Allergies: Review of patient's allergies indicates no known allergies. Immunizations: There is no immunization history on file for this patient. Medications: Current Outpatient Prescriptions: cholecalciferol, Vitamin D3, 1,000 unit tablet cyanocobalamin (VITAMIN B-12) 500 mcg tablet furosemide (LASIX) 20 mg tablet levothyroxine (SYNTHROID) 50 mcg tablet Potassium 99 mg tablet UNABLE TO FIND Vit M48-Sfzurnl Fact-FA Cmb #2 (INTRINSI M88-FAHYEG) 500-20-800 mcg-mg-mcg tablet No current facility-administered medications for this visit. History was documented as follows: Past Medical History: Diagnosis Date ??? ADD (attention deficit disorder) ??? Cataracts, bilateral ??? Depression ??? Hepatitis C ??? Hypothyroidism ??? Obesity ??? JOVITA (obstructive sleep apnea) ??? Rosacea ??? Stress incontinence, female ??? Wrist fracture Past Surgical History: Procedure Laterality Date ??? CATARACT REMOVAL WITH IMPLANT Bilateral 2014 ??? SECTION x 1 Social History Social History ??? Marital status: Single Spouse name: N/A ??? Number of children: N/A ??? Years of education: N/A Occupational History ??? Not on file. Social History Main Topics ??? Smoking status: Current Some Day Smoker ??? Smokeless tobacco: Never Used Comment: Occasional smoker ??? Alcohol use No ??? Drug use: No ??? Sexual activity: Not on file Other Topics Concern ??? Not on file Social History Narrative Family History Problem Relation Age of Onset ??? Dementia Mother Review of Systems: A 11-point review of systems was completed. Pertinent items are noted in Subjective/HPI. Constitutional: Negative for fever. HENT: Negative for neck pain. Eyes: Positive for blurred vision. Respiratory: Negative for shortness of breath. Cardiovascular: Negative for chest pain, palpitations and orthopnea. Gastrointestinal: (-) for abdominal pain. Genitourinary: Negative for dysuria. Skin: Negative for rash. Neurological: Negative for dizziness. Endo/Heme/Allergies: Negative. Psychiatric/Behavioral: Normal. Objective: Physical Examination: Vitals: Pulse 72 Resp 16 Ht 157.5 cm (62) Wt 90.7 kg (200 lb) BMI 36.58 kg/m2 Ms. Ardon is a pleasant female who is awake, alert, oriented x3. She did not show any signs of acute distress. She is not in pain. Her vitals were stable. Nursing note and vitals reviewed. The patient was examined & the plan was discussed in the presence of and the medical student Quan Clark MS III , Yannick Gonzalez, PGY-1. Constitutional: She appears well-nourished. No distress. Obese. HENT: Normal Head: Atraumatic. Right Ear: External ear normal. Left Ear: External ear normal. Mouth/Throat: Oropharynx is clear and moist. Eyes: Conjunctivae are normal. No scleral icterus. Neck: Neck supple. Cardiovascular: Normal rate, regular rhythm and normal heart sounds. Pulmonary/Chest: Effort normal and breath sounds normal. No respiratory distress. Abdominal: Abdomen soft, lax, no distention, no RUQ or epigastric tenderness. Musculoskeletal: She exhibits no edema. Neurological: She is alert. Skin: Skin is warm. Psychiatric: She has a normal mood and affect. Her behavior is normal. Judgment and thought contentnormal. Laboratory: Phlebotomy Only on 07/29/2015 Component Date Value Ref Range Status ??? Potassium 07/29/2015 3.8 3.5 - 5.0 mEq/L Final ??? Sodium 07/29/2015 139 136 - 145 mEq/L Final ??? Chloride 07/29/2015 102 96 - 110 mEq/L Final ??? CO2 07/29/2015 25 24 - 32 mEq/L Final ??? Total Alkaline Phosphatase 07/29/2015 110 38 - 126 U/L Final ? ? Bilirubin, Total 07/29/2015 0.6 <1.4 mg/dl Final ??? AST 07/29/2015 149* 15 - 46 U/L Final ? ? ALT 07/29/2015 67* <53 U/L Final ??? Albumin 07/29/2015 4.0 3.4 - 4.9 g/dl Final ??? Total Protein 07/29/2015 7.6 6.3 - 8.2 g/dl Final ??? Creatinine 07/29/2015 0.55 0.52 - 1.04 mg/dl Final ? ? GFR, Calculated 07/29/2015 98 >60 ml/min/1.73m2 Final Comment: eGFR calculated using CKD-EPI equation for non Americans. Multiply eGFR by 1.16 for Americans. ??? BUN 07/29/2015 13 10 - 26 mg/dl Final ??? Calcium 07/29/2015 9.2 8.5 - 10.5 mg/dl Final ??? Calculated Calcium 07/29/2015 9.6 8.5 - 10.5 mg/dl Final ??? Glucose, Serum 07/29/2015 79 70 - 100 mg/dl Final ??? Fasting? 07/29/2015 No Final ??? WBC 07/29/2015 6.26 4.0 - 12.4 K/cmm Final ??? RBC 07/29/2015 4.84 3.86 - 5.04 M/cmm Final ??? Hemoglobin 07/29/2015 14.1 11.6 - 15.2 gm/dl Final ??? HCT 07/29/2015 42.2 34.9 - 44.4 % Final ??? MCV 07/29/2015 87 81 - 98 fl Final ??? MCH 07/29/2015 29.0 26.7 - 33.3 pg Final ??? MCHC 07/29/2015 33.3 32.1 - 35.9 gm/dl Final ??? RDW-CV 07/29/2015 13.5 11.7 - 14.6 % Final ??? RDW-SD 07/29/2015 41.1 37.6 - 50.3 fl Final ??? PLT 07/29/2015 121* 141 - 320 K/cmm Final ??? MPV 07/29/2015 8.8 7.5 - 11.2 fl Final ??? Neutrophils 07/29/2015 58.4 45.5 - 79.7 % Final ??? Lymphocytes 07/29/2015 33.1 15.0 - 46.8 % Final ??? Monocytes 07/29/2015 6.4 1.8 - 12.0 % Final ??? Eosinophils 07/29/2015 1.4 0.6 - 6.9 % Final ??? Basophils 07/29/2015 0.7 0.2 - 1.4 % Final ??? ABS Neutrophils 07/29/2015 3.66 2.20 - 8.85 K/cmm Final ??? ABS Lymphs 07/29/2015 2.07 1.09 - 3.30 K/cmm Final ??? ABS Monocytes 07/29/2015 0.40 0.1 - 0.8 K/cmm Final ??? ABS Eosinophils 07/29/2015 0.09 0.03 - 0.61 K/cmm Final ??? ABS Basophils 07/29/2015 0.05 0.01 - 0.11 K/cmm Final ??? Type of Diff: 07/29/2015 Automated Final ??? Vitamin B-12 07/29/2015 507 211 - 911 pg/ml Final ??? 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 Contrary to previous practice, we do not routinely prophylactically remove porcelain gallbladders as risk for malignancy is much lower than previously thought. The above-mentioned findings were discussed with her in detail. PLAN: No acute surgical intervention indicated at this time. If she begins to be symptomatic, possible laparoscopic and possible open cholecystectomy and possible intraoperative cholangiography possible ERCP. The risks, benefits and alternatives were explained. The operative procedure was discussedincluding the risks of general anesthetic and medications and the potential risk of complications The risks include but not limited to, infection with abscess formation, bleeding due to injury of thenearby structures, liver, stomach, small, large bowel, common bile duct injury and bile leak. Therecould also be the need for re-operation. Post-operative recovery was discussed, as well as the need for post surgery follow-up. The patient understand the risks; any and all questions were answered to the patient's satisfaction. She was advised to come to our emergency room if experiences symptoms . Preoperatively, she would need an EKG, full report from her sales project administrator, an ultrasound to determine the extent of her ascites. She was counseled on avoidance of large, fatty meals. F/U with her PCP & sales project administrator. I would like to thank Anastacio Merlos for providing me the opportunity to participate in the management of this patient. 1. Brooks SHIN, Apryl DA. Porcelain gallbladder and risk of gallbladder cancer. Arch Surg 2011; 146:1148. Submitted by: Obinna Ladd MD documented in this encounter Plan of Treatment Not on file documented as of this encounter Visit Diagnoses Diagnosis Abnormal gall bladder diagnostic imaging- Primary Nonspecific (abnormal) findings on radiological and other examination of biliary tract documented in this encounter Historical Medications * This list may reflect changes made after this encounter. Medication Sig Dispensed Refills Start Date End Date cyanocobalamin (VITAMIN B-12) 500 mcg tablet Take 500 mcg by mouth daily. cholecalciferol, Vitamin D3, 1,000 unit tablet Take 1,000 Units by mouth daily. Potassium 99 mg tablet Take 1 Tab by mouth daily. Vit Y82-Cpiusoy Fact-FA Cmb #2 (INTRINSI E15-SKJZWL) 500-20-800 mcg-mg-mcg tablet Take by mouth. furosemide (LASIX) 20 mg tablet Take 20 mg by mouth daily. added in this encounter Care Teams Beef Skinner Relationship Specialty Start Date End Date Anastacio Merlos MD PCP - General 08/12/15 documented as of this encounter
--- OUTSIDE RECORDS SUMMARY | 2024-05-10 12:49 | XMS_ITS | Encounter Summary ---
Author Organization [facility] Address [address] [place] [address] Care Team Providers Care Associate Relations Specialist Name Role Phone Anastacio Merlos MD Primary Care Provider Unav ailable Encounter Details Date Type Department Care Team ([facility] Contact Info) Description 09/01/2016 Documentation Visit [facility] Memory Program - Medical Office Building [address] [place], [place] [id number] Ignacio Bella MD [address] [place] [address] Medical Office Building, [address] [place] [phone] Social History Tobacco Use Types Packs/Day Years Used Date Smoking Tobacco: Some Days Smokeless Tobacco: Never Comments:Occasional smoker Alcohol Use Standard Drinks/Week Comments No 0 (1 standard drink = 0.6 oz pur e alcohol) Sex and Gender Information Value Date Recorded Sex Assigned at Not on file Gender Identity Not on file Sexual Orientation Not on file documented as of this encounter Progress Notes * Cary Lopez - 09/01/2016 1258 EST Per patient request, mailed copy of Jena 08/12/[address] Head Report from07/29/2015. Mailed to: Vika Ardon [address] [facility] [place] [address] documented in this encounter Plan of Treatment Not on file documented as of this encounter Visit Diagnoses Not on filedocumented in this encounter Care Teams Associate Relations Specialist Relationship Specialty Start Date End Date Anastacio Merlos MD PCP - General 11/24/15 documented as of this encounter
--- OUTSIDE RECORDS SUMMARY | 2024-05-10 12:49 | XMS_ITS | Encounter Summary ---
Author Organization [facility] Address [address] [place] [address] Care Team Providers Care Java Systems Analyst Name Role Phone Anastacio Merlos MD Primary Care Provider Unav ailable Encounter Details Date Type Department Care Team ([facility] st Contact Info) Description 06/19/2018 Results Only Imaging [facility] [phone] Unknown, Provider, Social History Tobacco Use Types Packs/Day Years [...] as of this encounter Plan of Treatment Pending Results Name Type Priority Associated Diagnoses Date /Time OUTSIDE IMAGES - CT BODY Imaging 06/19/2018 11:19 EDT documented as of this encounter Visit Diagnoses Not on filedocumented in this encounter Care Teams Java Systems Analyst Relationship Specialty Start Date End Date Anastacio Merlos MD PCP - General 08/12/15 documented as of this encounter
--- OUTSIDE RECORDS SUMMARY | 2024-05-10 12:49 | XMS_ITS | Encounter Summary ---
Author Organization [facility] Address [address] [place] [address] Care Team Providers Care Commercial Drafter Name Role Phone Anastacio Merlos MD Primary Care Provider Unav ailable Encounter Details Date Type Department Care Team ([facility] Contact Info) Description 06/12/2018 Historical Results Only [facility] Radiology Results [address] [place], [place] [id number] Cesar Yo MD Social History Tobacco Use [...] Name Priority Date/Time Associated Diagnosis Comments CT ABDOMEN (ONLY) WO CONTRAST 06/12/2018 14:03 EDT documented in this encounter Results * CT ABDOMEN WO CONTRAST (06/12/2018 14:03 EDT) Anatomical Region Laterality Modality Other 06/12/2018 14:0 3 EDT Narrative 06/12/2018 14:06 EDT ? EXAM: CAT SCAN/ABDOMEN WITHOUT CONTRAST ?? EX. D/ (1125) ? CLINICAL INFORMATION: ? K82.9 CALCIFIEN GB ? R/O GB WALL CALCIFICATION ? ABDOMEN WITHOUT CONTRAST ? Signs and Symptoms/Comments: ??K82.9 CALCIFICATION GB, R/O GB WALL ? CALCIFICATION ? Comparison: Right upper quadrant ultrasound 01/18/2018. ? Technique: Noncontrast CT abdomen was performed with multiplanar ? reconstructions. Oral barium contrast was administered. No ? intravenous contrast was administered. ? FINDINGS: ? This exam was performed without intravenous contrast, decreasing ? sensitivity for focal lesions. ? Visible Chest: Mild bibasilar atelectasis versus scarring is present. ? Coronary atherosclerotic disease is present. Mild elevation of the ? left hemidiaphragm is age-indeterminate (coronal image 50). ? Solid Organs: The liver has a slightly nodular contour, raising the ? possibility of underlying cirrhosis. No significant perihepatic ? ascites is present. Sensitivity for focal liver lesions is markedly ? reduced by the absence of intravenous contrast. No intra or ? extrahepatic biliary ductal dilatation is present. There is extensive ? 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 No definite calcified gallstones are ? visible. No pericholecystic inflammatory changes are present to ? suggest acute cholecystitis. The pancreas is normal. The spleen is ? enlarged, measuring 15 cm in craniocaudal dimension, suspicious for ? underlying portal venous hypertension (coronal image 64). ? 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 The adrenal glands are normal. ? No definite renal calculi are identified. No hydronephrosis is ? present. ? Bowel, Peritoneal Cavity ?? Body Wall: The stomach is normal. The ? visible small bowel is unremarkable. Scattered colonic diverticulosis ? is present. No intraperitoneal free fluid or free air is identified ? in the upper abdomen. The visible body wall is unremarkable. ? Lymphovascular: No enlarged abdominal lymph nodes are present. ? Patency of the major vascular structures cannot be assessed on this ? noncontrast examination. Moderate calcified peripheral ? atherosclerotic plaque is present. ? Bones: Mild T11 and T12 compression fractures are age-indeterminate, ? but likely chronic. Moderate multilevel thoracolumbar degenerative ? changes are present. ? IMPRESSION: ? PAGE 1 ? Signed Report ? (CONTINUED) ? 1. 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 Although often asymptomatic, porcelain ? gallbladder may be associated with a mildly increased risk of ? malignancy. Surgical consultation recommended. ? 2. ??No definite calcified gallstones. No CT evidence of acute ? cholecystitis. ? 3. ??Stigmata of cirrhosis and portal venous hypertension. No ? significant ascites in the upper abdomen. ? 4. ??Additional findings detailed above. ? REPORT SIGNED IN OTHER VENDOR SYSTEM 06/12/2018 ?Reported By: Kg Terrell MD ? CC: ? Transcribed Date/Time: 06/12/2018 (1406) ? Crusher Foreman: ? Printed Date/Time: 03/10/2019 (1104) ? PAGE 2 ? Signed Report ? Procedure Note Kg Terrell MD - 07/26/2019 EXAM: CAT SCAN/ABDOMEN WITHOUT CONTRAST EX. D/ (1125) CLINICAL INFORMATION: K82.9 CALCIFIEN GB R/O GB WALL CALCIFICATION ABDOMEN WITHOUT CONTRAST Signs and Symptoms/Comments: K82.9 CALCIFICATION GB, R/O GB WALL CALCIFICATION Comparison: Right upper quadrant ultrasound 01/18/2018. Technique: Noncontrast CT abdomen was performed with multiplanar reconstructions. Oral barium contrast was administered. No intravenous contrast was administered. FINDINGS: This exam was performed without intravenous contrast, decreasing sensitivity for focal lesions. Visible Chest: Mild bibasilar atelectasis versus scarring ispresent. Coronary atherosclerotic disease is present. Mild elevation of the left hemidiaphragm is age-indeterminate (coronal image 50). Solid Organs: The liver has a slightly nodular contour, raising the possibility of underlying cirrhosis. No significant perihepatic ascites is present. Sensitivity for focal liver lesions is markedly reduced by the absence of intravenous contrast. No intra or extrahepatic biliary ductal dilatation is present. There isextensive gallbladder wall calcification, compatible with so-called porcelain gallbladder (axial image 39). No definite calcified gallstones are visible. No pericholecystic inflammatory changes are present to suggest acute cholecystitis. The pancreas is normal. The spleen is enlarged, measuring 15 cm in craniocaudal dimension, suspicious for underlying portal venous hypertension (coronal image 64). 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 The adrenal glands arenormal. No definite renal calculi are identified. No hydronephrosis is present. Bowel, Peritoneal Cavity Body Wall: The stomach is normal. The visible small bowel is unremarkable. Scattered colonicdiverticulosis is present. No intraperitoneal free fluid or free air is identified in the upper abdomen. The visible body wall is unremarkable. Lymphovascular: No enlarged abdominal lymph nodes are present. Patency of the major vascular structures cannot be assessed on this noncontrast examination. Moderate calcified peripheral atherosclerotic plaque is present. Bones: Mild T11 and T12 compression fractures areage-indeterminate, but likely chronic. Moderate multilevel thoracolumbar degenerative changes are present. IMPRESSION: PAGE 1 Signed Report (CONTINUED) 1. Extensive gallbladder wall calcification, compatible with porcelain gallbladder. Although often asymptomatic, porcelain gallbladder may be associated with a mildly increased risk of malignancy. Surgical consultation recommended. 2. No definite calcified gallstones. No CT evidence of acute cholecystitis. 3. Stigmata of cirrhosis and portal venous hypertension. No significant ascites in the upper abdomen. 4. Additional findings detailed above. REPORT SIGNED IN OTHER VENDOR SYSTEM 06/12/2018 Reported By: Kg eTrrell MD CC: Transcribed Date/Time: 06/12/2018 (2402) Crusher Foreman: [email or web address] Printed Date/Time: 03/10/2019 (3651) PAGE 2 Signed Report Cesar Yo MD IMG CT ORDERABLES documented in this encounter Visit Diagnoses Not on filedocumented in this encounter Care Teams Commercial Drafter Relationship Specialty Start Date End Date Anastacio Merlos MD PCP - General 08/12/15 documented as of this encounter
--- OUTSIDE RECORDS SUMMARY | 2024-05-10 12:49 | XMS_ITS | Referral Summary ---
Author Organization [facility] Address [address] [place] [address] Care Team Providers Care Event Planner Name Role Phone Anastacio Merlos MD Primary [...] 20 mg by mouth daily. Active Vit O13-Xmtfgga Fact-FA Cmb #2 (INTRINSI A03-QNJXPL) 500-20-800 mcg-mg-mcg tablet Take by mouth. Act kanika Potassium 99 mg tablet Take 1 Tab by mouth daily. Active cholecalciferol, Vitamin D3, 1,000 unit tablet Take 1,000 Units by mouth daily. Active cyanocobalamin (VITAMIN B-12) 500 mcg tablet Take 500 mcg by mouth daily. Active Active Problems Patient Care Coordination No te Formatting of this note migh t be different from the original. [facility] Memory Program TALON scanned into Prism: 07/29/15 Problem Noted Date Diagnosed Date Cataracts, bilateral Rosacea Hepatitis C Hypothyroidism JOVITA (obstructive sleep apnea) Stress incontinence, female Depression ADD (attention deficit disorder) Social History Tobacco Use Types Packs/Day Years [...] on file Sexual Orientation Not on file Last Filed Vital Signs Vital Sign Reading [...] 36.58 07/17/2018 1512 EDT Plan of Treatment Not on file Procedures Procedure Name Priority Date/Time Associated Diagnosis Comments HCV RNA DETECT QUANT Routine 01/21/2022 16:23 EDT from Last 3 Months or Most Recently Relevant to Health Maintenance Results * HCV RNA DETECT QUANT (01/21/2022 16:23 EDT) HCV RNA Qualitative Undetected Undetected 01/25/2022 12:33 EDT [facility] Blood VENOUS BLOOD / Unknown 01/21/2022 16:23 EDT 01/22/2022 16:37 EDT Narrative [facility] - 01/25/2022 12:33 EDT The quantification range of this assay is 15 IU/mL to 100,000,000 IU/mL. Testing was performed using the Alfonso HCV test ([employer] with the alfonso 6800 System. Provider Outr Resulting Lab CHEMISTRY & BLOOD GAS ORDERABLES [facility] [address] [place] [address] from Last 3 Months or Most Recently Relevant to Health Maintenance Care Teams Event Planner Relationship Specialty Start Date End Date Anastacio Merlos MD PCP - General 08/12/15
--- OUTSIDE RECORDS SUMMARY | 2024-05-10 12:49 | XMS_ITS | Encounter Summary ---
Author Organization [facility] Address [address] [place] [address] Care Team Providers Care Manager Helpdesk Name Role Phone Anastacio Merlos MD Primary Care Provider Unav ailable Encounter Details Date Type Department Care Team ([facility] st Contact Info) Description 12/24/2021 Lab Requisition [facility] Pathology & Laboratory Medicine - [facility] [address], [place] [address] Outr Resulting Lab, Provider Social History Tobacco [...] Procedure Name Priority Date/Time Associated Diagnosis Comments LYME AB Routine 12/23/2021 16:30 EDT documented in this encounter Results * LYME AB (12/23/2021 16:30 EDT) Lyme Ab Negative Negative 12/25/2021 11:25 EDT [facility] Blood VENOUS BLOOD / Unknown 12/23/2021 16:30 EDT 12/24/2021 17:30 EDT Provider Outr Resulting Lab IMMUNOLOGY A ND SEROLOGY ORDERABLES Performing Organization Address [facility]/State/ZIP Co de Phone Number [facility] [address] [place] [address] documented in this encounter Visit Diagnoses Not on filedocumented in this encounter Care Teams Manager Helpdesk Relationship Specialty Start Date End Date Anastacio Merlos MD PCP - General 08/12/15 documented as of this encounter
--- OUTSIDE RECORDS SUMMARY | 2024-05-10 12:49 | XMS_ITS | Encounter Summary ---
Author Organization [facility] Address [address] [place] [address] Care Team Providers Care Ear Nose Throat Surgeon Name Role Phone Anastacio Merlos MD Primary Care Provider Unav ailable Encounter Details Date Type Department Care Team ([facility] st Contact Info) Description 12/28/2019 Lab Requisition [facility] Pathology & Laboratory Medicine - [facility] [address] [place] [address] Brea Mooney [address] [place], [place] [id number] Encounter for other general examination Social History Tobacco Use Types Packs/Day Years [...] Procedure Name Priority Date/Time Associated Diagnosis Comments COVID-19 TESTING Today 12/28/2019 9:02 EDT Encounter for other general examination documented in this encounter Results * COVID-19 TESTING (12/28/2019 9:02 EDT) COVID-19 Result Not Detected Not Detected 12/29/2019 19:01 EDT [facility] Comment:Assayed at [place], [place] Swab ENTIRE NASOPHARYNX / Unknown 12/28/2019 9:02 EDT 12/28/2019 20:56 EDT Brea Mooney MICROBIOLOGY - GENER AL ORDERABLES [facility] [place] documented in this encounter Visit Diagnoses Diagnosis Encounter for other general examination documented in this encounter Care Teams Ear Nose Throat Surgeon Relationship Specialty Start Date End Date Anastacio Merlos MD PCP - General 08/12/15 documented as of this encounter
--- OUTSIDE RECORDS SUMMARY | 2024-05-10 12:49 | XMS_ITS | Encounter Summary ---
Author Organization [facility] Address [address] [place] [address] Care Team Providers Care Shear Scrapman Name Role Phone Brianna Wang ND Primary Care Provider [phone] Reason for Visit * Reason Comments Surgical Excision cyst x2 scalp, inner thigh- skin tag Encounter Details Date Type Department Care Team (Late st Contact Info) Description 03/21/2012 15:30 EDT Office Visit [facility] Dermatology 3rd Floor [facility] [address] [place] [address] Julio Vaughan MD [address] [place] [address] Francisco Melendez MD Alpert, Jamie Allison, MD Neoplasm of unspecified nature of bone, soft tissue, and skin (Primary Dx) Social History Tobacco Use Types Packs/Day Years Used Date Smoking Tobacco: Never Assessed Sex and Gender Information Value Date Recorded Sex Assigned at Not on file Gender Identity Not on file Sexual Orientation Not on file documented as of this encounter Patient Instructions * Patient Instructions* Francisco Melendez MD - 03/21/2012 16:39 EDT [facility] DER[facility]GERY [facility] EXCISIONAL WOUND CARE INSTRUCTIONS The DRESSING/BANDAID should remain in place for 24 hours. You may shower or bathe after 24 hours; remove the bandage and replace it after the shower. DISCOMFORT: Expect some discomfort. Extra-Strength Tylenol, taken as directed by the industrial locomotive operator, will help relieve pain. If the pain is severe please call the office. BLEEDING: You may notice some blood on the edges of the dressing the first day - this is NORMAL. Ifthe bleeding soaks through the dressing, remove the dressing, and apply firm, steady pressure with a moist clean wash cloth for fifteen minutes. If the bleeding stops, redress the wound, if not, callour office at . ACTIVITY: Relax and limit your physical activity for the first 48 hours after surgery. Also, if thesurgery was on the face or scalp, keep your head elevated. Your provider may ask you to limit activity for a longer period of time. APPEARANCE: There may be swelling and bruising around the wound, especially near the eyes. Some redness is normal, but the wound should not be red, hot and tender. If the wound becomes increasingly inflamed, warm, or drains pus, please call our office. WOUND CARE: ?? Wash hands with soap and water before changing the dressing. ?? Change the dressing daily and when it becomes wet. Clean the wound daily with mild soap and water. You may gently loosen any crusts with a cotton swab. The wound may be slightly tender and may bleed a small amount. A small amount of discharge is normal. Apply a thin layer of sterile petroleum jelly over the wound. Cover the wound with a Telfa (non-stick) dressing or bandage. It is important to keep the wound covered. If your sutures require removal, you will receive specific instructions regarding when and where tohave them removed. CONTACT THE OFFICE IF YOU EXPERIENCE: ?? increased redness ?? warmth to touch ?? increased pain ?? drainage with a foul odor ?? rapid swelling of the wound ?? fever or chills Please call our office or . documented in this encounter Progress Notes * Francisco Melendez MD - 03/21/2012 5553 EDT CYST EXCISION PATIENT INFORMATION: Vika Ardon : MRN: [id number] SURGEON: Julio Vaughan MD/Francisco Melendez MD ASSISTANT MERCHANDISE MANAGER: Sandrine Arrieta MA Specimen A LOCATION: Frontal scalp PREOPERATIVE DIAGNOSIS: Pilar Cyst(s) CYST SIZE: 0.8 x 0.9 cm INDICATIONS: The patient presents with a cyst requiring removal. PROCEDURE: Patient position: supine Anesthesia: 1% lidocaine with epinephrine 1:100,000 local infiltration Prep: Povodine Iodine and Chlorhexidine The patient was brought to the operative suite. The cyst was identified, prepped and draped in the usual sterile fashion. Following complete anesthesia, the skin was incised over the cyst with a sterile surgical blade. The cyst was identified and dissected free of the surrounding tissues with a blunt-tipped scissors and then removed. Hemostasis was achieve by spot electrocoagulation. The wound was closed with 3.0 PDS (polydioxanone) buried interrupted sutures and 4.0 Vicryl Rapide (coated polyglactin 910) surface sutures. The surgical specimen was submitted to pathology for histologic evaluation. POSTOPERATIVE DIAGNOSIS: Pilar Cyst(s) Cyst FINAL PROCEDURE: Excision and Linear Repair WOUND LENGTH: 2.0 cm BLOOD LOSS: minimal COMPLICATIONS: None NOTE: SHAVE BIOPSY S: Irritated growing lesion R inner thigh O: [place] pedunculated papule A: Neoplasm of uncertain behavior: R inner thigh ddx: Skin tag vs atypical nevus vs other P: Shave biopsy - see note PATIENT INFORMATION: Vika Ardon : MRN: [id number] SURGEON: Julio Vaughan MD/Francisco Melendez MD The indication, risks, benefits and alternatives to this procedure were discussed in detail with the patient and all questions were answered. Informed consent was obtained in writing. PROCEDURE NOTE Specimen A Procedure: Tangential Shave Indication: Diagnostic Biopsy Site: right inner thigh Anesthesia: 1% lidocaine with epinephrine 1:100,000 local infiltration Prep: Alcohol The lesion was prepped as above and locally anesthetized. The specimen was removed by tangential shave using a Dermablade??. Hemostasis was achieved with pressure and/or aluminum chloride. The wound was cleansed with alcohol and a sterile dressing was applied over Petrolatum ointment. Verbal and written wound care instructions were given.The specimen was submitted to pathology for histological evaluation. Francisco Melendez MD 03/21/2012 16:46 Attestation Statement: I saw and examined the patient with the resident/fellow. I agree with the findings and plan of care documented in the resident's/fellow's note. The resident/fellow performed the procedure under my direct personal supervision. I was present andscrubbed for the entire procedure. Julio Vaughan MD, KIA Machine Shorthand Teacher Division of Dermatology [facility] * Francisco Melendez MD - 03/21/2012 1543 EDT A complete 12 point review of systems was obtained and reviewed. All systems are negative except for: night sweats, rash, itching, eye redness, leg swelling, painful and frequent urination as well asat night, neck pain, easy bruising, excessive thirst, enlarged or tender lymph nodes, tingling, difficulty sleeping. Sandrine Arrieta 16:21 03/21/2012 Francisco Melendez MD 03/21/2012 16:49 Patient Education Topic: Wound Care Method: Handout, Demonstration and Verbal Taught to: Patient Barriers: None Outcomes: independent and requires assistance Sandrine Arrieta 03/21/2012 15:43 Julio Vaughan MD documented in this encounter Miscellaneous Notes * Scanned Note-Null - BIOPROCESS DEVELOPMENT ENGINEER, SCAN 2 - 03/27/2012 1257 EDT documented in this encounter Plan of Treatment Not on file documented as of this encounter Visit Diagnoses Diagnosis Neoplasm of unspecified nature of bone, soft tissue, and skin- Primary documented in this encounter Care Teams Shear Scrapman Relationship Specialty Start Date End Date Brianna Wang ND [address] [place] [phone] PCP - General 03/16/12 08/11/15 documented as of this encounter
--- OUTSIDE RECORDS SUMMARY | 2024-05-10 12:49 | XMS_ITS | Encounter Summary ---
Author Organization [facility] Address [address] [place] [address] Care Team Providers Care Blast Furnace Operator Name Role Phone RajBrianna torres KEITH Primary Care Provider [phone] Anastacio Merlos MD Primary Care Provider Unav ailable Encounter Details Date Type Department Care Team ([facility] st Contact Info) Description 07/29/2015 Phlebotomy Only [facility] - [facility] [address] [place] [address] Power And Recovery Supervisor, Outpatient Memory loss (Primary Dx) Social History Tobacco [...] Procedure Name Priority Date/Time Associated Diagnosis Comments SYPHILIS SEROLOGY Routine 07/29/2015 16: 40 EST Memory loss COMPLETE BLOOD COUNT AND DIFFERENTIAL Routine 07/29/2015 16:40 EST Memory loss VITAMIN B12 Routine 07/29/2015 16:40 EST Memory loss COMPREHENSIVE METABOLIC PANEL (CMP) Routine 07/29/2015 16:40 EST Memory loss documented in this encounter Results * SYPHILIS SEROLOGY (07/29/2015 16:40 EST) Syphilis Serology Negative 07/30/2015 13:31 EST [facility] Comment:Reference Range: Neg ative Blood specimen (specimen) BLOOD SPECIMEN / Unknown 07/29/2015 16:40 EST 07/29/2015 18:55 EST Ignacio Bella MD IMMUNOLOGY AND S EROLOGY ORDERABLES Performing Organization Address City/[facility]/ZIP Co de Phone Number [facility] [address] [place] [address] * VITAMIN B12 (07/29/2015 16:40 EST) Vitamin B-12 507 211 - 911 pg/ml 07/29/2015 20:34 [facility] Blood specimen (specimen) BLOOD SPECIMEN / Unknown 07/29/2015 16:40 EST 07/29/2015 18:55 EST Ignacio Bella MD CHEMISTRY & BLOO D GAS ORDERABLES Performing Organization Address City/[facility] Co de Phone Number [facility] [address] [place] [address] * (ABNORMAL) HEMAGRAM AND DIFFERENTIAL (07/29/2015 16:40 EST) Pathologist [facility] WBC 6.26 4.0 - 12.4 K/cmm 07/29/2015 19:16 [facility] RBC 4.84 3.86 - 5.04 M/cmm 07/29/2015 19:16 [facility] Hemoglobin 14.1 11.6 - 15.2 gm/dl 07/29/2015 19:16 [facility] HCT 42.2 34.9 - 44.4 % 07/29/2015 19:16 [facility] MCV 87 81 - 98 fl 07/29/2015 19:16 [facility] MCH 29.0 26.7 - 33.3 pg 07/29/2015 19:16 [facility] MCHC 33.3 32.1 - 35.9 gm/dl 07/29/2015 19:16 [facility] RDW-CV 13.5 11.7 - 14.6 % 07/29/2015 19:16 [facility] RDW-SD 41.1 37.6 - 50.3 fl 07/29/2015 19:16 [facility] PLT 121(L) 141 - 320 K/cmm 07/29/2015 19:16 [facility] MPV 8.8 7.5 - 11.2 fl 07/29/2015 19:16 [facility] % Neutrophils 58.4 45.5 - 79.7 % 07/29/2015 19:16 [facility] % Lymphocytes 33.1 15.0 - 46.8 % 07/29/2015 19:16 [facility] % Monocytes 6.4 1.8 - 12.0 % 07/29/2015 19:16 [facility] % Eosinophils 1.4 0.6 - 6.9 % 07/29/2015 19:16 [facility] % Basophils 0.7 0.2 - 1.4 % 07/29/2015 19:16 [facility] ABS Neutrophils 3.66 2.20 - 8.85 K/cmm 07/29/2015 19:16 [facility] ABS Lymphs 2.07 1.09 - 3.30 K/cmm 07/29/2015 19:16 [facility] ABS Monocytes 0.40 0.1 - 0.8 K/cmm 07/29/2015 19:16 [facility] ABS Eosinophils 0.09 0.03 - 0.61 K/cmm 07/29/2015 19:16 [facility] ABS Basophils 0.05 0.01 - 0.11 K/cmm 07/29/2015 19:16 [facility] Type of Diff: Automated 07/29/2015 19:16 [facility] Blood specimen (specimen) BLOOD SPECIMEN / Unknown 07/29/2015 16:40 EST 07/29/2015 18:55 EST Ignacio Bella MD PACKAGES & DNA P VANESA ORDERABLES [facility] [address] [place] [address] * (ABNORMAL) COMPREHENSIVE METABOLIC PANEL (CMP) (07/29/2015 16:40 EST) Potassium 3.8 3.5 - 5.0 mEq/L 07/29/2015 19:46 [facility] Sodium 139 136 - 145 mEq/L 07/29/2015 19:46 [facility] Chloride 102 96 - 110 mEq/L 07/29/2015 19:46 [facility] CO2 25 24 - 32 mEq/L 07/29/2015 19:46 [facility] Total Alkaline Phosphatase 110 38 - 126 U/L 07/29/2015 19:46 [facility] Bilirubin, Total 0.6 <1.4 mg/dl 07/29/20 15 19:46 [facility] AST 149(H) 15 - 46 U/L 07/29/2015 19:46 [facility] ALT 67(H) <53 U/L 07/29/2015 19:46 [facility] Albumin 4.0 3.4 - 4.9 g/dl 07/29/2015 19:46 [facility] Total Protein 7.6 6.3 - 8.2 g/dl 07/29/2015 19:46 [facility] Creatinine 0.55 0.52 - 1.04 mg/dl 07/29/2015 19:46 [facility] GFR, Calculated 98 >60 ml/min/1.7 3m2 07/29/2015 19:46 [facility] Comment: eGFR calculated using CKD-EPI equation for non Americans. Multiply eGFR by 1.16 for Americans. BUN 13 10 - 26 mg/dl 07/29/2015 19:46 [facility] Calcium 9.2 8.5 - 10.5 mg/dl 07/29/2015 19:46 [facility] Calculated Calcium 9.6 8.5 - 10.5 mg/dl 07/29/2015 19:46 [facility] Glucose, Serum 79 70 - 100 mg/dl 07/29/2015 19:46 [facility] Fasting? No 07/29/2015 16:42 [facility] Blood specimen (specimen) BLOOD SPECIMEN / Unknown 07/29/2015 16:40 EST 07/29/2015 18:55 EST Ignacio Bella MD CHEMISTRY & BLOO D GAS ORDERABLES [facility] [address] [place] [address] documented in this encounter Visit Diagnoses Diagnosis Memory loss- Primary documented in this encounter Care Teams Blast Furnace Operator Relationship Specialty Start Date End Date Brianna Wang ND [address] [place] [phone] PCP - General 03/16/12 08/11/15 Anastacio Merlos MD [address] [place] [phone] PCP - General 08/12/15 documented as of this encounter
--- OUTSIDE RECORDS SUMMARY | 2024-05-10 12:49 | XMS_ITS | Encounter Summary ---
Author Organization [facility] Address [address] [place] [address] Care Team Providers Care Mattress Finisher Name Role Phone Anastacio Merlos MD Primary Care Provider Unav ailable Reason for Visit * Reason Comments Memory Loss * Consult, Test and Treat (Routine) - Closed Specialty Diagnoses / Procedures Referred By Jacoby summers Referred To Contact Psychology Diagnoses Memory loss Anastacio Merlos MD [address] [place] [address] [facility] Memory [facility] [address] [place] [id number] Referral ID Status Reason Start Date Expiration Date Visits Re quested Visits Authorized [id number] Closed 2 2 Encounter Details Date Type Department Care Team (Late st Contact Info) Description 08/12/2015 14:00 EST Office Visit [facility] - Medical Office Building [address] [place] [address] Ignacio Bella MD [address] [place] [address] [facility] Medical Office Building, [address] [place] [address] Memory loss (Primary Dx) Social History Tobacco Use Types Packs/Day Years Used Date Smoking Tobacco: Some Days Smokeless Tobacco: Never Tobacco Cessation:Ready to Q uit: No; Counseling Given: No Comments:Occasional smoker Alcohol Use Standard Drinks/Week [...] Pressure 135/80 08/12/2015 1436 EST Pulse 72 08/12/2015 1436 EST Temperature - - Respiratory Rate - - Oxygen Saturation - - Inhaled Oxygen Concentration - - Weight - - Height - - Body Mass Index - - documented in this encounter Discharge Diagnoses Diagnosis R41.3 Other amnesia-R41.3[ICD-10-CM] documented in this encounter Progress Notes * Wm Obed Bella MD - 08/12/2015 1409 EST This office note has been dictated. documented in this encounter Consult Notes * Wm Obed Bella MD - 08/12/2015 1746 EST [facility] CONSULTATION - 08/12/2015 REASON FOR CONSULTATION: The patient's concern about cognitive changes. CONSULTATIVE SOURCE: I was asked to see this patient in consultation by Anastacio Merlos MD. INFORMANTS: Ms Ardon, records provided from Dr Merlos and review of [facility]ISM. PATIENT PROFILE: Vika Ardon is a 64-year-old white right-handed woman, currently living by herself in subsidized housing in [place]. Ms Ardon was born in [place] and grew up in [place]. She completed high school through the 11th grade and eventually earned an equivalency degree. She later obtained a BS degree from [email or web address], [place] in an online program in alternative medicine and more recently completed an MA from [employer] in 2010 in [place] and [place]. She reports having done other college work in sort of training programs. 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 She last was employed for 3 years at [employer], but has been out of work since November 2014. She has been marriedtwice and twice. She has 2 adult sons living in other states and a daughter who recently was murdered at the age of 40. ALLERGIES: No known drug allergies. MEDICATIONS: Levothyroxine 50 mcg. CogniShield 1 capsule daily (patient unlikely to continue). HISTORY OF PRESENT ILLNESS: Ms Ardon reports that she was [...] home community, andis serving on three local [employer]. MEDICAL HISTORY: Rosacea, bilateral cataracts status post removal, hepatitis C, hypothyroidism, obstructive sleep apnea, stress incontinence, obesity, depression, recently diagnosed ADD, and wrist fracture as a child. Ms Ardon has had recent cataract removal with implants and has a history of 1 section. Ms Ardon continues to be an occasional smoker and she denies use of any alcohol. REVIEW OF SYSTEMS: Not completed by the patient. FAMILY HISTORY: Ms Ardon indicates that her mother at the age of 92 from progressive dementia, likely Alzheimer's disease. Her father at the age of 92 from melanoma. She has a 62-sxda-tzgfkopnm who has coronary artery disease and 2 younger sisters age 59 and 50 who are generally healthy. She also has a 63-year-old brother who is generally healthy. PHYSICAL EXAMINATION: General: The blood pressure in the left upper extremity while sitting was 135/80. Pulse was 72 and regular. Weight was not determined; however, Ms Ardon appeared overweight. The patient appeared her stated age, was in no acute distress, and was cooperative for the interview and examination. Grooming and hygiene were unremarkable. There were no hallucinations, delusions or evidence of depression. Carotid bruits were not heard. Cardiac exam revealed no abnormalities and lung vargas were clear. Examination of head and neck functions revealed no thyromegaly and no evidenceof lymph nodes. The throat was clear as were the eardrums. Extremities were nontender, as were joints. The skin was clear. NEUROLOGIC: The Hachinski ischemic score was zero. Cranial nerve examination revealed the following. Pupils were equal and reactive to light and accommodation. EOMs were full without nystagmus. Vargas were full to confrontation. The face was symmetric at rest and moved symmetrically. Jaw power was full and there was no evidence of weakness of the tongue or fasciculations. Shoulder shrugging was full. Motor exam revealed full strength, no abnormalities of tone and normal bulk. No involuntary movements were noted. Reflexes were 2+ throughout with downgoing toes. Gross sensory examination to pinand cotton was unremarkable. Coordination as tested by finger to nose, rapid rhythmic alternating movements were normal. Station and gait were unremarkable. ADDITIONAL PERTINENT INFORMATION: Ms Ardon had a CT scan of the brain that was completed on 07/29/2015 that showed nonspecific age-related changes. The radiologist interpreting the scan commented on enlarged ventricles out of proportion to any sulcal atrophy and queried about the possibility of normal pressure hydrocephalus. It should be noted that Ms Ardon has no clinical evidence of that diagnosis. Recent laboratory testing germane to a memory evaluation was unremarkable or nonspecific. ASSESSMENT: Ms Ardon scored 28 on the Mini Mental State Exam and 4 on the Alzheimer's Disease Assessment Scale. Testing across multiple cognitive domains did not disclose any deficits and in fact new learning and memory testing was in the average to high average range. There is no convincing evidence upon this evaluation to support a diagnosis of any neurodegenerative condition causing cognitive decline. I will take the opportunity today to reassure Ms Ardon and suggest a comprehensive followup visit in 1 year. PLAN: 1. After I completed my evaluation, I met with Ms Ardon and provided my assessment as above. 2. I addressed questions. 3. Follow up for a comprehensive reevaluation in 1 year. Ignacio Bella MD 03 02 PM - Ignacio Bella MD cn Dictation ID: [id number] cc: Anastacio Merlos MD, [address], [address] [address] documented in this encounter Plan of Treatment Not on file documented as of this encounter Visit Diagnoses Diagnosis Memory loss- Primary documented in this encounter Historical Medications * This list may reflect changes made after this encounter. Medication Sig Dispensed Refills Start Date End Date UNABLE TO FIND Take 1 Cap by mouth daily Med Name: cognishield levothyroxine (SYNTHROID) 50 mcg tablet Take 50 mcg by mouth daily added in this encounter Care Teams Mattress Finisher Relationship Specialty Start Date End Date Anastacio Merlos MD PCP - General 08/12/15 documented as of this encounter
[2024-05-10 21:28] LABS: Abs Immature Grans 0.01 10^3/uL (0.0-0.06); Absolute Basophil Count 0.03 10^3/uL (0.0-0.2); Absolute Eosinophil Count 0.23 10^3/uL (0.0-0.7); Absolute Lymphocyte Count 1.01 10^3/uL (1.2-3.4); Absolute Monocyte Count 0.32 10^3/uL (0.1-0.8); Absolute Neutrophil Count 2.62 10^3/uL (1.2-6.7); Basophils % 0.7 %; Eosinophils % 5.5 %; HCT 39.9 % (36.0-46.0); HGB 13.3 g/dL (11.2-15.7); Immature Grans % 0.2 %; Lymphocytes % 23.9 %; MCH 31.7 pg (27.0-33.0); MCHC 33.3 % (32.0-36.0); MCV 95 fL (80-95); MPV 10.9 fL (8.0-11.0); Monocytes % 7.6 %; Neutrophils % 62.1 %; RDW 14.6 % (11.7-14.6); RDW-SD 50.4 fL; WBC 4.22 10^3/uL (4.4-10.8)
[2024-05-10 21:47] LABS: ALT 14 U/L (14-59); AST 40 U/L (15-37); Albumin 2.8 g/dL (3.4-5.0); Alkaline Phosphatase 77 U/L (46-116); Anion Gap 5.9 mmol/L (3-11); BUN 9 mg/dL (7-18); Bilirubin, Total 2.96 mg/dL (0.2-1.0); CO2 28.1 mmol/L (21.0-32.0); CREATININE 0.6 mg/dL (0.55-1.02); Calcium 8.7 mg/dL (8.5-10.1); Chloride 107 mmol/L (98-107); Estimated GFR 93.55 (mL/min/1.73m2); Glucose 91 mg/dL (74-106); Potassium 4.4 mmol/L (3.5-5.1); Sodium 141 mmol/L (136-145)
[2024-05-10 22:14] LABS: Lipase 34 U/L (16-77)
[2024-05-10 22:15] LABS: Platelet Count 83 10^3/uL (130-400)
== END 2024-05-10 12:46 | disposition home or self-care (01) ==
LOC: NCHCN 12:45
PROVIDERS: PCP Internal Medicine; Visit Provider Nurse Practitioner Family
DX: R19.7 Diarrhea, unspecified (principal); R10.9 Unspecified abdominal pain
CPT/HCPCS: 80053; 83690; 85025

== ENCOUNTER 2024-08-13 16:38 | Outpatient (REF) | payer MEDICARE, MEDICAID, SELFPAY ==
--- OUTSIDE RECORDS SUMMARY | 2024-08-13 16:45 | XMS_ITS ---
Author Organization Unknown Address [address] [place] [phone] Phone Care Team Providers Care Venue Manager Name Role Phone LOS Montaño Attending Unavailable Results BD DXA BONE DENSITY HIP AND SPINE - Completed: 12/08/2022 08:51 LOINC: [facility] [place], [place] [address] [employer]QU[employer] MECH[employer]IC REPORT Patient Name: KAMILA MONTES MRN: Sex: : Age: [id number] F 1950 [id number] Account: Accession: Admit: StayType: [id number] 12/08/2022 O/P Ordered: Order ID: Submitted: Ordering Provider: 12/08/2022 07:44 [id number] NLS MAURA MADISON Completed: Technologist: Resulted: 12/08/2022 [...] ORGAN - C ompleted: 12/08/2022 08:23 LOINC: [facility] [place], [place] [address] [employer] MECH[employer]IC REPORT Patient Name: KAMILA MONTES MRN: Sex: : Age: [id number] F 1950 [id number] Account: Accession: Admit: StayType: [id number] 12/08/2022 O/P Ordered: Order ID: Submitted: Ordering Provider: 12/08/2022 07:44 [id number] MAURA THOMAS Completed: Technologist: Resulted: 12/08/2022 08:23 [...] em Smoking History Current some day smoker [id number] SNOMED CT Sex Female Medications Medication Start Date End Date Route Frequency Dose Code Code System Medication Instructions Home Meds HERBAL JOINT/ARTHRITIS SUPPLEMENT 02/23/2018 Unknown BY MOUTH DAILY 1 unit(s) RxNorm TAKE 1 EACH BY MOUTH DAILY Levothyroxine 50MCG Oral Tablet 02/23/2018 Unknown ORAL DAILY 1 TABLET 855523 RxNorm TAKE 1 TABLET ORAL DAILY Claudy Natural [place]-3 Fish Oil 1000 MG-1 IU Oral Capsule, Liquid Filled 02/23/2018 Unknown ORAL DAILY 1 CAPSULE RxNorm TAKE 1 CAPSULE ORAL DAILY One Daily Women's Oral Tablet 02/23/2018 Unknown ORAL DAILY 1 TABLET 4649936 RxNorm TAKE 1 TABLET ORAL DAILY Probiotic Formula 250 MG-1 Billion CFU Oral Capsule 02/23/2018 Unknown ORAL DAILY 1 CAPSULE 7650637 RxNorm TAKE 1 CAPSULE ORAL DAILY VITAMIN D TAB 250MG 02/23/2018 Unknown BY MOUTH NEEDED DAILY 500 MILLIGRAMS RxNorm TAKE 500 MILLIGRAMS BY MOUTH NEEDED DAILY HYDROcodone bitartrate-aceta minophen 5MG-325MG Oral Tablet 12/23/2021 Unknown ORAL DAILY 1 TABLET 990062 RxNorm TAKE 1 TABLET ORAL DAILY Furosemide 20MG Oral Tablet 06/21/2023 Unknown ORAL DAILY 1 TABLET 807222 RxNorm TAKE 1 TABLET ORAL DAILY Assessment [...] Code System BILATERAL LOWER EXTREMITY EDEMA active 762648104 SNOMED-CT DYSPNEA active 977554789 SNOMED-CT THROMBOCYTOPENIA active 990376394 SNO MED-CT HEPATITIS B active 51180184 SNOMED-C T THROMBOCYTOPENIA active 751929678 SNO MED-CT OBSTRUCTIVE SLEEP APNEA active 472073 09 SNOMED-CT HYPOTHYROIDISM active 73591252 SNOME D-CT BILATERAL LOWER EXTREMITY EDEMA active 936872221 SNOMED-CT CHRONIC HEPATITIS C active 116204645 SNOMED-CT Allergies and Adverse Reactions Allergy Substance Reaction Severity Start Date Concern Status Co de Code System No Known Drug Allergies Active 819150166 SNOMED-CT Plan of Treatment Travel 02/03/2021 Lab [...]
--- OUTSIDE RECORDS SUMMARY | 2024-08-13 16:45 | XMS_ITS ---
Author Organization Unknown Address [address] [place] [phone] Phone Care Team Providers Care Juvenile Corrections Officer Name Role Phone SUE HARRELL Registered Nurse Unavailable CHETAN Danielle Attending Unavailable UNLISTED PROVIDER - REQUESTED Xhandoff Un available Results TROPONIN HIGH SENSITIVITY* - Collect Date/Time: 12/23/2021 02:25 [facility] ID: [id number] [address] [place] [address], [address] LOINC: 76919-2 Test Value Unit Reference Range Code Code System Flag TROPONIN HS 7.4 pg/mL L=0.0 H=60.4 Specimen seq. ADM. LIPASE* - Collect Date/Time: 12/23/2021 02:25 [facility] ID: [id number] [address] [place] [address], [id number] LOINC: 3040-3 Test Value Unit Reference Range Code Code System Flag LIPASE 166 U/L L=73 H=393 COMPREHENSIVE METABOLIC PANE L (CMP) - Collect Date/Time: 12/23/2021 02:25 [facility] ID: [id number] [address] [place] [address], [address] LOINC: 87572-8 Test Value Unit Reference Range Code Code System Flag GLUCOSE 121 mg/dL L=70 H=116 2345-7 LOINC H BUN 11 mg/dL L=6 H=25 3094-0 LOINC CREATININE 0.61 mg/dL L=0.51 H=0.95 2160-0 LOINC SODIUM SERUM 142 mmol/L L=136 H=145 2951-2 LOINC POTASSIUM SERUM 3.9 mmol/L L=3.4 H=5.2 2823-3 LOINC CHLORIDE SERUM 104 mmol/L L=96 H=110 2075-0 LOINC CARBON DIOXIDE (CO2) 32 mmol/L L=22 H=34 2028-9 LOINC ANION GAP 6.1 mmol/L 96534-0 LOINC CALCIUM SERUM 9.3 mg/dL L=8.2 H=10.2 75146-0 LOINC BILIRUBIN TOTAL 0.7 mg/dL L=0.0 H=1.3 1975-2 LOINC ALK. PHOS. 95 U/L L=46 H=116 6768-6 LOINC SGOT (AST) 26 U/L L=15 H=37 1920-8 LOINC SGPT (ALT) 14 U/L L=12 H=78 1742-6 LOINC TOTAL PROTEIN 7.8 gm/dL L=6.0 H=8.0 2885-2 LOINC ALBUMIN 3.3 gm/dL L=3.4 H=5.0 1751-7 LOINC L AGE 71 years eGFR (non-Afr.Amer.) 96 mL/min 52053-4 LOINC eGFR (Afr-Cypriot) 116 mL/min 57100-3 LOINC CBC W/ DIFFERENTIAL* - Colle ct Date/Time: 12/23/2021 02:25 [facility] ID: [id number] [address] [place], [place], [address] LOINC: 82289-0 Test Value Unit Reference Range Code Code System Flag WBC 4.16 th/cmm L=5.00 H=10.00 6690-2 LOINC L NEUT % 54.2 % L=40.0 H=80.0 LYMPH % 31.7 % L=10.0 H=50.0 MONO % 10.3 % L=2.0 H=12.0 80028-3 LOINC EOS % 3.4 % L=0.0 H=8.0 BASO % 0.2 % L=0.0 H=3.0 IG % 0.2 % L=0.0 H=1.1 2514-8 LOINC NRBC % 0.0 % L=0.0 H=0.0 57959-8 LOINC NEUT abs count 2.3 th/cmm L=1.6 H=8.4 751-8 LOINC LYMPH abs count 1.3 th/cmm L=1.5 H=4.0 731-0 LOINC L MONO abs count 0.4 th/cmm L=0.2 H=1.0 742-7 LOINC EOS abs count 0.1 th/cmm L=0.0 H=0.5 711-2 LOINC BASO abs count 0.0 th/cmm L=0.0 H=0.2 704-7 LOINC IG abs count 0.0 th/cmm L=0.0 H=0.1 20963-2 LOINC NRBC abs count 0.0 mil/cmm L=0.0 H=0.0 81782-9 LOINC RBC 4.71 mil/cmm L=3.90 H=5.40 789-8 LOINC HEMOGLOBIN 13.1 gm/dL L=12.0 H=16.0 718-7 LOINC HEMATOCRIT 42 % L=37 H=47 4544-3 LOINC MCV 88 fL L=82 H=92 787-2 LOINC MCH 27.8 pg L=27.0 H=31.0 785-6 LOINC MCHC 31.5 % L=32.0 H=36.0 786-4 LOINC L RDW-SD 48.9 fL L=39.0 H=49.0 788-0 LOINC PLATELET COUNT 74 th/cmm L=150 H=450 777-3 LOINC L Rouleaux present CT THORAX W DYE - Completed: 12/23/2021 04:01 LOINC: Radiation optimization:?? Al l CT scans at this facility use at least one of these dose optimization techniques: automated exposure control; mA and/or kV adjustment per patient size (includes targeted exams where dose is matched to clinical indication); or iterative reconstruction. CT SCAN OF THE CHEST: CT scan of the chest was performed following the uneventful administration of intravenous contrast material. Comparison examination is 05/11/2017 and chest x-ray from 12/23/2021. The thyroid gland is unremarkable. The thoracic aorta is of normal caliber. There is atherosclerosis present. Heart size is within normal limits. Coronary artery calcifications are present. No pericardial effusion is seen. No significant thoracic adenopathy. There is left pleural thickening or tiny pleural effusion. No right pleural effusion is seen. No pneumothorax is present. The tracheobronchial tree is unremarkable. No focal consolidating infiltrates are seen. The upper abdominal images were obtained and show a nodular contour of the liver suggesting hepatic cirrhosis. Gastroesophageal varices are present. The spleen is enlarged measuring 15.7 cm. There is again seen peripheral calcification of the gallbladder, which is unchanged compared to 2017. The soft tissues are unremarkable. No acute osseous abnormality is seen. IMPRESSION: 1. No acute pulmonary process. 2. Findings suggestive of hepatic cirrhosis with signs of portal hypertension. 3. Porcelain gallbladder again noted. Dictated by: IRMA ZENDEJAS MD Transcribed by: VLADIMIR 12/23/2113:51 [id number] Electronically Reviewed and Signed By: JOSE DANIEL ZENDEJAS MD 12/23/21 14:11 Copy for: 185 [facility] DISCHARGED XR CHEST 2V PA AND LATERAL - Completed: 12/23/2021 04:01 LOINC: CHEST X-RAY - 3 VIEWS:Compar kathryn is made with 02/20/18. There is poor inspiration. There is unchanged elevation of the left hemidiaphragm. Cardiac silhouette is within normal limits. There is atherosclerosis of the thoracic aorta. No focal consolidating infiltrate, effusion or pneumothorax is identified. No acute osseous abnormality is seen. There is peripheral calcification of the gallbladder again seen in the right upper quadrant of the abdomen. IMPRESSION:No acute pulmonary process. Dictated by: IRMA ZENDEJAS MD Transcribed by: DARIEL 12/23/21/12:55 D Thursday, December 23, 2021 8:24:50 AM [id number] Electronically Reviewed and Signed By: JOSE DANIEL ZENDEJAS MD 12/23/21 13:14 Copy for: 185 [facility] INFORMATION [facility] DISCHARGED Social History Type Status Start Date End Date Code Code Syst em Smoking History Current some day smoker 199343483048920 SNOMED CT Sex Female Vital Signs Vital Sign Value Unit Mckinney Value Mckinney Unit Date/Time Recent/Initial? Code Code System Body Mass Index 35.67 kg/m2 12/23/2021 02:55 Initial 17872 -[address] [facility] Systolic Blood Pressure 130 mm[Hg] 12/23/2021 06:40 Most Recent 8480- 6 LOINC Diastolic Blood Pressure 65 mm[Hg] 12/23/2021 06:40 Most Recent 8462- 4 INC Systolic Blood Pressure 170 mm[Hg] 12/23/2021 02:55 Initial 8480- 6 [facility] Diastolic Blood Pressure 110 mm[Hg] 12/23/2021 02:55 Initial 8462- 4 INC Body Surface Area 1.97 m2 12/23/2021 02:55 Initial 3140- 1 INC Height 157.480 0 cm 62.00 in 12/23/2021 02:55 Initial 8302- 2 INC O2 Saturation 98 % 2021 06:40 Most Recent 84508 -5 INC O2 Saturation 95 % 2021 02:55 Initial 31425 -5 INC Pulse 78.0 /min 12/23/2021 06:40 Most Recent 8867- 4 INC Pulse 84.0 /min 12/23/2021 02:55 Initial 8867- 4 INC Respiration 18 /min 12/24/19 22 06:40 Most Recent 9279- 1 INC Respiration 18 /min 12/24/19 22 02:55 Initial 9279- 1 INC Temperature 36.6 Enma 97.9 F 12/24/19 22 06:40 Most Recent 8310- 5 INC Temperature 35.9 Enma 96.6 F 12/24/19 22 02:55 Initial 8310- [address] [facility] Weight 88.45 kg 195.00 lbs 12/23/2021 02:55 Initial 08179 -[address] [facility] Medications Medication Start Date End Date Route Frequency Dose Code Code System Medication Instructions Home Meds HERBAL JOINT/ARTHRITIS SUPPLEMENT 02/23/2018 Unknown BY MOUTH DAILY 1 unit(s) RxNorm TAKE 1 EACH BY MOUTH DAILY Levothyroxine 50MCG Oral Tablet 02/23/2018 Unknown ORAL DAILY 1 TABLET 134466 RxNorm TAKE 1 TABLET ORAL DAILY Claudy Natural [place]-3 Fish Oil 1000 MG-1 IU Oral Capsule, Liquid Filled 02/23/2018 Unknown ORAL DAILY 1 CAPSULE RxNorm TAKE 1 CAPSULE ORAL DAILY One Daily Women's Oral Tablet 02/23/2018 Unknown ORAL DAILY 1 TABLET 7631394 RxNorm TAKE 1 TABLET ORAL DAILY Probiotic Formula 250 MG-1 Billion CFU Oral Capsule 02/23/2018 Unknown ORAL DAILY 1 CAPSULE 8621558 RxNorm TAKE 1 CAPSULE ORAL DAILY VITAMIN D TAB 250MG 02/23/2018 Unknown BY MOUTH NEEDED DAILY 500 MILLIGRAMS RxNorm TAKE 500 MILLIGRAMS BY MOUTH NEEDED DAILY HYDROcodone bitartrate-aceta minophen 5MG-325MG Oral Tablet 12/23/2021 Unknown ORAL DAILY 1 TABLET 925781 RxNorm TAKE 1 TABLET ORAL DAILY Furosemide 20MG Oral Tablet 06/21/2023 Unknown ORAL DAILY 1 TABLET 863192 RxNorm TAKE 1 TABLET ORAL DAILY Assessment [...] Code System BILATERAL LOWER EXTREMITY EDEMA active 240695296 SNOMED-CT DYSPNEA active 040486592 SNOMED-CT THROMBOCYTOPENIA active 904151395 SNO MED-CT HEPATITIS B active 48862360 SNOMED-C T THROMBOCYTOPENIA active 694002391 SNO MED-CT OBSTRUCTIVE SLEEP APNEA active 363680 09 SNOMED-CT HYPOTHYROIDISM active 62385843 SNOME D-CT BILATERAL LOWER EXTREMITY EDEMA active 953593254 SNOMED-CT CHRONIC HEPATITIS C active 662120183 SNOMED-CT Allergies and Adverse Reactions Allergy Substance Reaction Severity Start Date Concern Status Co de Code System No Known Drug Allergies Active 835015693 SNOMED-CT Plan of Treatment Travel 02/03/2021 Lab Draw 11/28/2020 BONE DENSITY DEXA SPINE & HIP 3 US ABDOMEN LIMITED 1 ORGAN 12/08/2022 BONE DENSITY DEXA SPINE & HIP 3 US ABDOMEN LIMITED 1 ORGAN 12/08/2022 Encounters Encounter Diagnosis Start Date Code Code Sys tem Contusion of left back wall of thorax, initial encount er 12/23/2021 SNOMED-CT Personal Care Team Section Performer Name Performer Role Active Date Inactive Da te
--- OUTSIDE RECORDS SUMMARY | 2024-08-13 16:45 | XMS_ITS ---
Author Organization Unknown Address [address] [place] [phone] Phone Care Team Providers Care Overcaster Name Role Phone LOS Montaño Attending Unavailable Social History Type Status Start Date End Date Code Code Syst em Smoking History Current some day smoker [id number] SNOMED CT Sex Female Medications Medication Start Date End Date Route Frequency Dose Code Code System Medication Instructions Home Meds HERBAL JOINT/ARTHRITIS SUPPLEMENT 02/23/2018 Unknown BY MOUTH DAILY 1 unit(s) RxNorm TAKE 1 EACH BY MOUTH DAILY Levothyroxine 50MCG Oral Tablet 02/23/2018 Unknown ORAL DAILY 1 TABLET 146657 RxNorm TAKE 1 TABLET ORAL DAILY Claudy Natural [place]-3 Fish Oil 1000 MG-1 IU Oral Capsule, Liquid Filled 02/23/2018 Unknown ORAL DAILY 1 CAPSULE RxNorm TAKE 1 CAPSULE ORAL DAILY One Daily Women's Oral Tablet 02/23/2018 Unknown ORAL DAILY 1 TABLET 9352996 RxNorm TAKE 1 TABLET ORAL DAILY Probiotic Formula 250 MG-1 Billion CFU Oral Capsule 02/23/2018 Unknown ORAL DAILY 1 CAPSULE 9835544 RxNorm TAKE 1 CAPSULE ORAL DAILY VITAMIN D TAB 250MG 02/23/2018 Unknown BY MOUTH NEEDED DAILY 500 MILLIGRAMS RxNorm TAKE 500 MILLIGRAMS BY MOUTH NEEDED DAILY HYDROcodone bitartrate-aceta minophen 5MG-325MG Oral Tablet 12/23/2021 Unknown ORAL DAILY 1 TABLET 790830 RxNorm TAKE 1 TABLET ORAL DAILY Furosemide 20MG Oral Tablet 06/21/2023 Unknown ORAL DAILY 1 TABLET 847864 RxNorm TAKE 1 TABLET ORAL DAILY Assessment [...] Code System BILATERAL LOWER EXTREMITY EDEMA active 345954835 SNOMED-CT DYSPNEA active 065897003 SNOMED-CT THROMBOCYTOPENIA active 413611840 SNO MED-CT HEPATITIS B active 16874499 SNOMED-C T THROMBOCYTOPENIA active 125157831 SNO MED-CT OBSTRUCTIVE SLEEP APNEA active 197388 09 SNOMED-CT HYPOTHYROIDISM active 79471270 SNOME D-CT BILATERAL LOWER EXTREMITY EDEMA active 645311341 SNOMED-CT CHRONIC HEPATITIS C active 512488219 SNOMED-CT Allergies and Adverse Reactions Allergy Substance Reaction Severity Start Date Concern Status Co de Code System No Known Drug Allergies Active 609212091 SNOMED-CT Plan of Treatment Travel 02/03/2021 Lab [...]
--- OUTSIDE RECORDS SUMMARY | 2024-08-13 16:46 | XMS_ITS ---
Author Organization Unknown Address [address] [place] [address] [phone] Phone Care Team Providers Care Clip On Sunglasses Assembler Name Role Phone NICHOLAS Elliott Attending Unavailable LOS Montaño Primary Unavailable Social History Type Status Start Date End Date Code Code Syst em Smoking History Current some day smoker [id number] SNOMED CT Sex Female Medications Medication Start Date End Date Route Frequency Dose Code Code System Medication Instructions Home Meds HERBAL JOINT/ARTHRITIS SUPPLEMENT 02/23/2018 Unknown BY MOUTH DAILY 1 unit(s) RxNorm TAKE 1 EACH BY MOUTH DAILY Levothyroxine 50MCG Oral Tablet 02/23/2018 Unknown ORAL DAILY 1 TABLET 555978 RxNorm TAKE 1 TABLET ORAL DAILY Claudy Natural [place]-3 Fish Oil 1000 MG-1 IU Oral Capsule, Liquid Filled 02/23/2018 Unknown ORAL DAILY 1 CAPSULE RxNorm TAKE 1 CAPSULE ORAL DAILY One Daily Women's Oral Tablet 02/23/2018 Unknown ORAL DAILY 1 TABLET 6817339 RxNorm TAKE 1 TABLET ORAL DAILY Probiotic Formula 250 MG-1 Billion CFU Oral Capsule 02/23/2018 Unknown ORAL DAILY 1 CAPSULE 7891162 RxNorm TAKE 1 CAPSULE ORAL DAILY VITAMIN D TAB 250MG 02/23/2018 Unknown BY MOUTH NEEDED DAILY 500 MILLIGRAMS RxNorm TAKE 500 MILLIGRAMS BY MOUTH NEEDED DAILY HYDROcodone bitartrate-aceta minophen 5MG-325MG Oral Tablet 12/23/2021 Unknown ORAL DAILY 1 TABLET 638681 RxNorm TAKE 1 TABLET ORAL DAILY Furosemide 20MG Oral Tablet 06/21/2023 Unknown ORAL DAILY 1 TABLET 999179 RxNorm TAKE 1 TABLET ORAL DAILY Assessment [...] Code System BILATERAL LOWER EXTREMITY EDEMA active 971741633 SNOMED-CT DYSPNEA active 427093057 SNOMED-CT THROMBOCYTOPENIA active 345505936 SNO MED-CT HEPATITIS B active 82833390 SNOMED-C T THROMBOCYTOPENIA active 957175905 SNO MED-CT OBSTRUCTIVE SLEEP APNEA active 694390 09 SNOMED-CT HYPOTHYROIDISM active 51294598 SNOME D-CT BILATERAL LOWER EXTREMITY EDEMA active 672602168 SNOMED-CT CHRONIC HEPATITIS C active 208914005 SNOMED-CT Allergies and Adverse Reactions Allergy Substance Reaction Severity Start Date Concern Status Co de Code System No Known Drug Allergies Active 592117161 SNOMED-CT Plan of Treatment Travel 02/03/2021 Lab Draw 11/28/2020 BONE DENSITY DEXA SPINE & HIP 3 US ABDOMEN LIMITED 1 ORGAN 12/08/2022 BONE DENSITY DEXA SPINE & HIP 3 US ABDOMEN LIMITED 1 ORGAN 12/08/2022 Encounters Encounter Diagnosis Start Date Code Code Sys tem 01/06/2023 [id number] SNOMED-CT Personal Care Team Section Performer Name Performer Role Active Date Inactive Da rigoberto
--- OUTSIDE RECORDS SUMMARY | 2024-08-13 16:46 | XMS_ITS ---
Author Organization Unknown Address [address] [place] [address] [phone] Phone Care Team Providers Care Lay Out Helper Name Role Phone CLAYTON MANCUSO Registered Nurse Unavailable GERARD Danielle Attending Unavailable LOS Montaño Primary Unavailable UNLISTED PROVIDER - REQUESTED Xhandoff Un available Results TROPONIN HIGH SENSITIVITY* - Collect Date/Time: 06/21/2023 16:20 [facility] ID: [id number] [address] [place] [address], 5[address] LOINC: 58551-5 Test Value Unit Reference Range Code Code System Flag TROPONIN HS 8.0 pg/mL L=0.0 H=60.4 Specimen seq. ADM. THYROID TESTING CASCADE* - C ollect Date/Time: 06/21/2023 16:20 [facility] ID: [id number] [address] [place] [address], 5[address] LOINC: 3016-3 Test Value Unit Reference Range Code Code System Flag TSH. 1.471 uIU/mL L=0.360 H=3.740 3014-8 LOINC PTT PARTIAL THROMBOPLASTIN T RICO* - Collect Date/Time: 06/21/2023 16:20 [facility] ID: [id number] [address] [place] [address], [id number] LOINC: 94217-7 Test Value Unit Reference Range Code Code System Flag PTT 27.1 seconds L=24.5 H=32.8 61544-6 LOINC PT PROTHROMBIN TIME* - Colle ct Date/Time: 06/21/2023 16:20 [facility] ID: [id number] [address] [place] [address], 5[address] LOINC: 5902-2 Test Value Unit Reference Range Code Code System Flag PROTIME 11.1 seconds L=9.3 H=11.4 5902-2 LOINC INR 1.07 L=2.00 H=3.00 97980-0 LOINC L MAGNESIUM SERUM* - Collect D ate/Time: 06/21/2023 16:20 [facility] ID: [id number] [address] [place] [address], 61 LOINC: 26808-1 Test Value Unit Reference Range Code Code System Flag MAGNESIUM 1.9 mg/dL L=1.8 H=2.4 31795-5 LOINC D-DIMER - Collect Date/Time: 06/21/2023 16:20 [facility] ID: [id number] [address] [place] [address], 5[address] LOINC: 54419-2 Test Value Unit Reference Range Code Code System Flag D-DIMER 0.93 mg/L L=0.19 H=0.50 38085-3 LOINC H COMPREHENSIVE METABOLIC PANE L (CMP) - Collect Date/Time: 06/21/2023 16:20 [facility] ID: [id number] [address] [place] [address], [address] LOINC: 42380-7 Test Value Unit Reference Range Code Code [...] H=34 8-9 LOINC ANION GAP 4.6 mmol/L 19620-8 LOINC CALCIUM SERUM 8.9 mg/dL L=8.2 H=10.2 34041-7 LOINC BILIRUBIN TOTAL 1.3 mg/dL L=0.0 H=1.3 1975-2 LOINC ALK. PHOS. 72 U/L L=46 H=116 6768-6 LOINC SGOT (AST) 36 U/L L=15 H=37 1920-8 LOINC SGPT (ALT) 13 U/L L=12 H=78 1742-6 LOINC TOTAL PROTEIN 7.1 gm/dL L=6.0 H=8.0 2885-2 LOINC ALBUMIN 2.9 gm/dL L=3.4 H=5.0 1751-7 LOINC L AGE 72 years eGFR (non-Afr.Amer.) 80 mL/min 91859-1 LOINC eGFR (Afr-[place]ay[place] Islander) 97 mL/min 82525-0 LOINC CBC W/ DIFFERENTIAL* - Colle ct Date/Time: 06/21/2023 16:20 [facility] ID: [id number] [address] [place], [place], [id number] LOINC: 09450-1 Test Value Unit Reference Range Code Code [...] PLATELET COUNT 80 th/cmm L=150 H=450 L [facility] COVID FLU RSV GENEXPE RT - Collect Date/Time: 06/21/2023 16:20 [facility] ID: [id number] [address] [place] [address], [id number] LOINC: 62272-4 Test Value Unit Reference Range Code Code System Flag COVID NEGATIVE Normal: Negative 09706-9 LOINC INFLUENZA A DNA NEGATIVE Normal: Negative 07695-4 LOINC INFLUENZA B DNA NEGATIVE Normal: Negative 04002-8 LOINC RSV DNA NEGATIVE Normal: Negative 28145-9 LOINC BNP (PRO-B NATRIURETIC PEPTI DE) - Collect Date/Time: 06/21/2023 16:20 [facility] ID: [id number] [address] [place] [address], [address] LOINC: 10202-5 Test Value Unit Reference Range Code Code System Flag NT-proBNP 47.0 pg/mL L=0.0 H=125 67505-[address] ANGIOGRAPHY CHEST - Compl eted: 06/21/2023 18:14 LOINC: [facility] RADIOLOGY [place], [place] [address] PACS 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 Patient Name: KAMILA MONTES MRN: Sex: : Age: [id number] F 1950 72 Account: Accession: Admit: StayType: [id number] 06/21/2023 E/R Ordered: Order ID: Submitted: Ordering Provider: 06/21/2023 17:38 [id number] JOSE DANIEL PETERSON Completed: Technologist: Resulted: 06/21/2023 [...] AND LATERAL - Completed: 06/21/2023 17:19 LOINC: [facility] RADIOLOG[facility] [place], [place] [address] PACS AUTOMATION 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 Patient Name: KAMILA MONTES MRN: Sex: : Age: [id number] F 1950 72 Account: Accession: Admit: StayType: [id number] 06/21/2023 E/R Ordered: Order ID: Submitted: Ordering Provider: 06/21/2023 16:15 [id number] JOSE DANIEL PETERSON Completed: Technologist: Resulted: 06/21/2023 [...] em Smoking History Current some day smoker [id number] SNOMED CT Sex Female Vital Signs Vital Sign Value Unit Comal Value Comal Unit Date/Time Recent/Initial? Code Code System Body Mass Index 36.18 kg/m2 06/21/2023 16:15 Initial 84855 -5 LOINC Systolic Blood Pressure 118 mm[Hg] [...] Saturation 97 % 2022 18:54 Most Recent 89348 -5 INC O2 Saturation 98 % 2022 16:15 Initial 25450 -5 INC Pulse 67.0 /min 06/21/2023 18:54 Most Recent 8867- 4 INC Pulse 76.0 /min 06/21/2023 16:15 Initial 8867- 4 LOINC Respiration 18 /min 06/21/20 18:54 Most Recent 9279- 1 LOINC Respiration 18 /min 06/21/20 16:15 Initial 9279- 1 INC Temperature 36.1 Enma 97.0 F 06/21/20 16:15 Initial 8310- 5 INC Weight 89.72 kg 197.80 lbs 06/21/2023 16:15 Initial 47574 -7 [facility] Medications Medication Start Date End Date Route Frequency Dose Code Code System Medication Instructions Home Meds HERBAL JOINT/ARTHRITIS SUPPLEMENT 02/23/2018 Unknown BY MOUTH DAILY 1 unit(s) RxNorm TAKE 1 EACH BY MOUTH DAILY Levothyroxine 50MCG Oral Tablet 02/23/2018 Unknown ORAL DAILY 1 TABLET 711613 RxNorm TAKE 1 TABLET ORAL DAILY Claudy Natural [place]-3 Fish Oil 1000 MG-1 IU Oral Capsule, Liquid Filled 02/23/2018 Unknown ORAL DAILY 1 CAPSULE RxNorm TAKE 1 CAPSULE ORAL DAILY One Daily Women's Oral Tablet 02/23/2018 Unknown ORAL DAILY 1 TABLET 8417683 RxNorm TAKE 1 TABLET ORAL DAILY Probiotic Formula 250 MG-1 Billion CFU Oral Capsule 02/23/2018 Unknown ORAL DAILY 1 CAPSULE 8528533 RxNorm TAKE 1 CAPSULE ORAL DAILY VITAMIN D TAB 250MG 02/23/2018 Unknown BY MOUTH NEEDED DAILY 500 MILLIGRAMS RxNorm TAKE 500 MILLIGRAMS BY MOUTH NEEDED DAILY HYDROcodone bitartrate-aceta minophen 5MG-325MG Oral Tablet 12/23/2021 Unknown ORAL DAILY 1 TABLET 107781 RxNorm TAKE 1 TABLET ORAL DAILY Furosemide 20MG Oral Tablet 06/21/2023 Unknown ORAL DAILY 1 TABLET 359599 RxNorm TAKE 1 TABLET ORAL DAILY Assessment [...] Status Code Code Syste m section completed 68300099 SNOMEDCT Problems Problem Start Date Resolved Date Status Code Code System BILATERAL LOWER EXTREMITY EDEMA active 206636751 SNOMED-CT DYSPNEA active 377551810 SNOMED-CT THROMBOCYTOPENIA active 635245911 SNO MED-CT HEPATITIS B active 70096516 SNOMED-C T THROMBOCYTOPENIA active 730520589 SNO MED-CT OBSTRUCTIVE SLEEP APNEA active 269932 09 SNOMED-CT HYPOTHYROIDISM active 04869936 SNOME D-CT BILATERAL LOWER EXTREMITY EDEMA active 047882878 SNOMED-CT CHRONIC HEPATITIS C active 395669967 SNOMED-CT Allergies and Adverse Reactions Allergy Substance Reaction Severity Start Date Concern Status Co de Code System No Known Drug Allergies Active 803029867 SNOMED-CT Plan of Treatment Travel 02/03/2021 Lab Draw 11/28/2020 BONE DENSITY DEXA SPINE & HIP 3 US ABDOMEN LIMITED 1 ORGAN 12/08/2022 BONE DENSITY DEXA SPINE & HIP 3 US ABDOMEN LIMITED 1 ORGAN 12/08/2022 OUTPATIENT PLAN: Additional Physician Instructions: Please try to decrease salt/sodium intake as much as possible. Your prescription was electronically sent to [facility] in [place]. Discharge Medications Medication Dosage Route Frequency Prescribing [...] mL/min 06/21/2023 16:15 06/21/2023 16:20 final eGFR (Afr-[place]ayman Islander) 97 mL/min 06/21/2023 16:15 06/21/2023 16:20 final [...] Code Code Sys tem Thrombocytopenic disorder 06/21/2023 834798924 SN OMED-CT Personal Care Team Section Performer Name Performer Role Active Date Inactive Da te
--- OUTSIDE RECORDS SUMMARY | 2024-08-13 16:46 | XMS_ITS ---
Author Organization Unknown Address [address] [place] [address] [phone] Phone Care Team Providers Care Hydrogen Plant Operations Manager Name Role Phone SEGUNDO Clay MD Attending Unavailable LOS LORENZO Primary Unavailable Social History Type Status Start Date End Date Code Code Syst em Smoking History Current some day smoker [id number] SNOMED CT Smoking History Smoker, current status unknown 35096520 SNOMED CT Smoking History Former smoker 6196131 SNOMED CT Sex Female Medications Medication Start Date End Date Route Frequency Dose Code Code System Medication Instructions Home Meds HERBAL JOINT/ARTHRITIS SUPPLEMENT 02/23/2018 Unknown BY MOUTH DAILY 1 unit(s) RxNorm TAKE 1 EACH BY MOUTH DAILY Levothyroxine 50MCG Oral Tablet 02/23/2018 Unknown ORAL DAILY 1 TABLET 705622 RxNorm TAKE 1 TABLET ORAL DAILY Claudy Natural [place]-3 Fish Oil 1000 MG-1 IU Oral Capsule, Liquid Filled 02/23/2018 Unknown ORAL DAILY 1 CAPSULE RxNorm TAKE 1 CAPSULE ORAL DAILY One Daily Women's Oral Tablet 02/23/2018 Unknown ORAL DAILY 1 TABLET 8604707 RxNorm TAKE 1 TABLET ORAL DAILY Probiotic Formula 250 MG-1 Billion CFU Oral Capsule 02/23/2018 Unknown ORAL DAILY 1 CAPSULE 5210940 RxNorm TAKE 1 CAPSULE ORAL DAILY VITAMIN D TAB 250MG 02/23/2018 Unknown BY MOUTH NEEDED DAILY 500 MILLIGRAMS RxNorm TAKE 500 MILLIGRAMS BY MOUTH NEEDED DAILY HYDROcodone bitartrate-aceta minophen 5MG-325MG Oral Tablet 12/23/2021 Unknown ORAL DAILY 1 TABLET 939007 RxNorm TAKE 1 TABLET ORAL DAILY Furosemide 20MG Oral Tablet 06/21/2023 Unknown ORAL DAILY 1 TABLET 160203 RxNorm TAKE 1 TABLET ORAL DAILY Assessment [...] Code System BILATERAL LOWER EXTREMITY EDEMA active 599463066 SNOMED-CT DYSPNEA active 171153253 SNOMED-CT THROMBOCYTOPENIA active 281816737 SNO MED-CT HEPATITIS B active 14076318 SNOMED-C T THROMBOCYTOPENIA active 994120496 SNO MED-CT OBSTRUCTIVE SLEEP APNEA active 513061 09 SNOMED-CT HYPOTHYROIDISM active 12422131 SNOME D-CT BILATERAL LOWER EXTREMITY EDEMA active 631432282 SNOMED-CT CHRONIC HEPATITIS C active 695939269 SNOMED-CT Allergies and Adverse Reactions Allergy Substance Reaction Severity Start Date Concern Status Co de Code System No Known Drug Allergies Active 827279159 SNOMED-CT Plan of Treatment Travel 02/03/2021 Lab [...]
--- OUTSIDE RECORDS SUMMARY | 2024-08-13 16:46 | XMS_ITS ---
Author Organization Unknown Address [address] [place] [address] [phone] Phone Care Team Providers Care Medical Office Assistant Name Role Phone AMARILIS Prachi COLIN Registered Nurse Unavailable CHETAN Danielle Attending Unavailable JULIO Serrano ER Unavailable LOS Montaño Primary Unavailable UNLISTED PROVIDER - REQUESTED Xhandoff Un available Results PTT PARTIAL THROMBOPLASTIN T BRINA* - Collect Date/Time: 05/11/2024 20:10 [facility] ID: [id number] [address] [place] [address], [id number] LOINC: 97973-6 Test Value Unit Reference Range Code Code System Flag PTT 27.9 seconds L=24.5 H=32.8 37954-4 LOINC AMMONIA* - Collect Date/Time : 05/11/2024 20:00 [facility] ID: [id number] [address] [place] [address], [address] LOINC: 35452-0 Test Value Unit Reference Range Code Code System Flag AMMONIA < 10 umol/L L=19 H=54 69760-3 LOINC L LIPASE* NEW - Collect Date/T brina: 05/11/2024 20:00 [facility] ID: [id number] [address] [place] [address], [id number] LOINC: 3040-3 Test Value Unit Reference Range Code Code System Flag LIPASE. 41 U/L L=16 H=77 COMPREHENSIVE METABOLIC PANE L (CMP) - Collect Date/Time: 05/11/2024 20:00 [facility] ID: [id number] [address] [place], [place], [address] LOINC: 72041-4 Test Value Unit Reference Range Code Code System Flag GLUCOSE 79 mg/dL L=70 H=116 2345-7 LOINC BUN 11 mg/dL L=6 H=25 3094-0 LOINC CREATININE 0.62 mg/dL L=0.51 H=0.95 2160-0 LOINC SODIUM SERUM 140 mmol/L L=136 H=145 2951-2 LOINC POTASSIUM SERUM 3.3 mmol/L L=3.4 H=5.2 2823-3 LOINC L CHLORIDE SERUM 107 mmol/L L=96 H=110 2075-0 LOINC CARBON DIOXIDE (CO2) 29 mmol/L L=22 H=34 2028-9 LOINC ANION GAP 4.2 mmol/L 97916-9 LOINC CALCIUM SERUM 8.7 mg/dL L=8.2 H=10.2 57425-2 LOINC BILIRUBIN TOTAL 1.6 mg/dL L=0.0 H=1.3 1975-2 LOINC H ALK. PHOS. 92 U/L L=46 H=116 6768-6 LOINC SGOT (AST) 34 U/L L=15 H=37 1920-8 LOINC SGPT (ALT) 9 U/L L=12 H=78 1742-6 LOINC L TOTAL PROTEIN 6.6 gm/dL L=6.0 H=8.0 2885-2 LOINC ALBUMIN 2.6 gm/dL L=3.4 H=5.0 1751-7 LOINC L AGE 73 years eGFR (non-Afr.Amer.) 94 mL/min 73554-4 LOINC eGFR (Afr-Filipino) 114 mL/min 43645-5 LOINC CBC W/ DIFFERENTIAL* - Colle ct Date/Time: 05/11/2024 20:00 [facility] ID: [id number] [address] [place], [place], [address] LOINC: 89757-3 Test Value Unit Reference Range Code Code System Flag WBC 3.70 th/cmm L=5.00 H=10.00 6690-2 LOINC L NEUT % 55.3 % L=40.0 H=80.0 LYMPH % 27.6 % L=10.0 H=50.0 MONO % 9.5 % L=2.0 H=12.0 19157-4 LOINC EOS % 6.8 % L=0.0 H=8.0 BASO % 0.5 % L=0.0 H=3.0 IG % 0.3 % L=0.0 H=1.1 2514-8 LOINC NRBC % 0.0 % L=0.0 H=0.0 74364-2 LOINC NEUT abs count 2.1 th/cmm L=1.6 H=8.4 751-8 LOINC LYMPH abs count 1.0 th/cmm L=1.5 H=4.0 731-0 LOINC L MONO abs count 0.4 th/cmm L=0.2 H=1.0 742-7 LOINC EOS abs count 0.3 th/cmm L=0.0 H=0.5 711-2 LOINC BASO abs count 0.0 th/cmm L=0.0 H=0.2 704-7 LOINC IG abs count 0.0 th/cmm L=0.0 H=0.1 67489-9 LOINC NRBC abs count 0.0 mil/cmm L=0.0 H=0.0 89743-5 LOINC RBC 3.88 mil/cmm L=3.90 H=5.40 789-8 LOINC L HEMOGLOBIN 12.3 gm/dL L=12.0 H=16.0 718-7 LOINC HEMATOCRIT 36 % L=37 H=47 4544-3 LOINC L MCV 94 fL L=82 H=92 787-2 LOINC H MCH 31.7 pg L=27.0 H=31.0 785-6 LOINC H MCHC 33.8 % L=32.0 H=36.0 786-4 LOINC RDW-SD 50.7 fL L=39.0 H=49.0 788-0 LOINC H PLATELET COUNT 65 th/cmm L=150 H=450 777-3 LOINC L Ovalocytes 1+ CT ABD PELVIS W IV CONTRAST ONLY - Completed: 05/11/2024 21:05 LOINC: [facility] RADIOLOGY [place], [place] [address] 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 Oral contrast was not administered. COMPARISON: CT chest 06/21/2023. CT abdomen pelvis 05/11/2017 FINDINGS: Lower chest: There is mild coronary calcification and calcifications at the aortic valve. No airspace opacity to suggest pneumonia. No pleural effusions. Unchanged 3 mm right lower lobe subpleural nodule (series 3 image 11). Liver: The liver with nodular capsule contour consistent with sequela of cirrhosis. No focal liver lesions. Bile ducts: Nondilated. Gallbladder: Unchanged peripherally calcified gallbladder. No pericholecystic inflammatory change. Pancreas: Normal attenuation without ductal dilatation. Spleen: Unchanged mild splenomegaly. No splenic lesions. Adrenals: Normal. Kidneys: Normal renal size. Normal symmetric renal enhancement. No hydronephrosis. No perinephric edema. Urinary Bladder: Decompressed, otherwise unremarkable. Vasculature: Atherosclerotic disease of the nonaneurysmal abdominal aorta. Origins of the celiac axis and SMA are widely patent. Normal caliber of IVC. There is a right-sided portosystemic shunt from the posterior right portal system to the right renal vein. The splenic vein is dilated and patent. No evidence of portal vein thrombus. There are gastroesophageal varices. Lymph Nodes: No lymphadenopathy. Bowel: Aforementioned large gastroesophageal varices. Moderate distention of the stomach. There is mild perigastric edema. Normal caliber of the duodenum. No air or fluid filled dilated loops of bowel to suggest obstruction. Small quantity of stool throughout the colon. There is new abnormal bowel wall thickening involving the cecum and ascending colon with surrounding pericolonic edema. Normal terminal ileum. Normal appendix. Peritoneum and retroperitoneum: Small volume fluid attenuation ascites adjacent to the liver and within the deep pelvis. There is edema surrounding the thickened cecum and ascending colon with trace free fluid in the right paracolic gutter. No loculated collection to suggest abscess. No free air. Abdominal wall: Mild body wall edema. Reproductive organs: Normal uterus. No adnexal masses. Osseous structures: No acute osseous findings. No suspicious osseous lesions. Moderate to severe central stenosis at L4-5 secondary to central disc protrusion and facet arthropathy. IMPRESSION: 1. Sequela of cirrhosis and portal hypertension. 2. Small volume of ascites. 3. Extensive gastroesophageal varices. 4. Portosystemic shunt between the right liver and right renal vein. 5. New nonspecific bowel thickening involving the cecum and ascending colon. Differential can include both infectious/inflammatory colitis or reactive bowel edema in the setting of portal hypertension. 6. Unchanged peripherally calcified/porcelain gallbladder. No evidence of acute cholecystitis. Thank you for letting us participate in the care of this patient. If you are a health care provider and have any questions regarding this report, please contact the number below. For patients who have questions please contact the health career counselor that requested your imaging first. Electronically signed by: Abdulkadir Morris MD [facility] ([phone]), at 05/11/2024 10:03 PM Social History Type Status Start Date End Date Code Code Syst em Smoking History Current some day smoker [id number] SNOMED CT Sex Female Vital Signs Vital Sign Value Unit [place] Value [place] Unit Date/Time Recent/Initial? Code Code System Body Mass Index 33.84 kg/m2 05/11/2024 18:48 Initial 17831 -5 LOINC Systolic Blood Pressure 164 mm[Hg] 05/11/2024 22:47 Most Recent 8480- 6 LOINC Diastolic Blood Pressure 68 mm[Hg] 05/11/2024 22:47 Most Recent 8462- 4 LOINC Systolic Blood Pressure 136 mm[Hg] 05/11/2024 18:48 Initial 8480- 6 LOINC Diastolic Blood Pressure 75 mm[Hg] 05/11/2024 18:48 Initial 8462- 4 LOINC Body Surface Area 1.92 m2 05/11/2024 18:48 Initial 3140- 1 LOINC Height 157.480 0 cm 62.00 in 05/11/2024 18:48 Initial 8302- 2 LOINC O2 Saturation 100 % 2023 22:47 Most Recent 34166 -5 LOINC O2 Saturation 98 % 2023 18:48 Initial 58624 -5 LOINC Pulse 60.0 /min 05/11/2024 22:47 Most Recent 8867- 4 LOINC Pulse 75.0 /min 05/11/2024 18:48 Initial 8867- 4 LOINC Respiration 16 /min 05/11/20 22:47 Most Recent 9279- 1 LOINC Respiration 18 /min 05/11/20 18:48 Initial 9279- 1 LOINC Temperature 36.6 Enma 97.9 F 05/11/20 22:47 Most Recent 8310- 5 LOINC Temperature 36.6 Enma 97.9 F 05/11/20 18:48 Initial 8310- 5 LOINC Weight 83.91 kg 185.00 lbs 05/11/2024 18:48 Initial 91274 -7 LOINC Medications Medication Start Date End Date Route Frequency Dose Code Code System Medication Instructions Home Meds HERBAL JOINT/ARTHRITIS SUPPLEMENT 02/23/2018 Unknown BY MOUTH DAILY 1 unit(s) RxNorm TAKE 1 EACH BY MOUTH DAILY Levothyroxine 50MCG Oral Tablet 02/23/2018 Unknown ORAL DAILY 1 TABLET 380336 RxNorm TAKE 1 TABLET ORAL DAILY Claudy Natural [place]-3 Fish Oil 1000 MG-1 IU Oral Capsule, Liquid Filled 02/23/2018 Unknown ORAL DAILY 1 CAPSULE RxNorm TAKE 1 CAPSULE ORAL DAILY One Daily Women's Oral Tablet 02/23/2018 Unknown ORAL DAILY 1 TABLET 1237296 RxNorm TAKE 1 TABLET ORAL DAILY Probiotic Formula 250 MG-1 Billion CFU Oral Capsule 02/23/2018 Unknown ORAL DAILY 1 CAPSULE 9616928 RxNorm TAKE 1 CAPSULE ORAL DAILY VITAMIN D TAB 250MG 02/23/2018 Unknown BY MOUTH NEEDED DAILY 500 MILLIGRAMS RxNorm TAKE 500 MILLIGRAMS BY MOUTH NEEDED DAILY HYDROcodone bitartrate-aceta minophen 5MG-325MG Oral Tablet 12/23/2021 Unknown ORAL DAILY 1 TABLET 803862 RxNorm TAKE 1 TABLET ORAL DAILY Furosemide 20MG Oral Tablet 06/21/2023 Unknown ORAL DAILY 1 TABLET 640157 RxNorm TAKE 1 TABLET ORAL DAILY Assessment [...] Code System BILATERAL LOWER EXTREMITY EDEMA active 959134287 SNOMED-CT DYSPNEA active 142299709 SNOMED-CT THROMBOCYTOPENIA active 479566731 SNO MED-CT HEPATITIS B active 79993667 SNOMED-C T THROMBOCYTOPENIA active 823821961 SNO MED-CT OBSTRUCTIVE SLEEP APNEA active 462547 09 SNOMED-CT HYPOTHYROIDISM active 74512823 SNOME D-CT BILATERAL LOWER EXTREMITY EDEMA active 706745253 SNOMED-CT CHRONIC HEPATITIS C active 802338953 SNOMED-CT Allergies and Adverse Reactions Allergy Substance Reaction Severity Start Date Concern Status Co de Code System No Known Drug Allergies Active 524954187 SNOMED-CT Plan of Treatment Travel 02/03/2021 Lab Draw 11/28/2020 BONE DENSITY DEXA SPINE & HIP 3 US ABDOMEN LIMITED 1 ORGAN 12/08/2022 BONE DENSITY DEXA SPINE & HIP 3 US ABDOMEN LIMITED 1 ORGAN 12/08/2022 Encounters Encounter Diagnosis Start Date Code Code Sys tem Disorder of bilirubin metabolism 05/11/2024 09765272 SNOMED-CT Personal Care Team Section Performer Name Performer Role Active Date Inactive Da te
--- OUTSIDE RECORDS SUMMARY | 2024-08-13 16:47 | XMS_ITS | Encounter Summary ---
Author Organization [facility] Address [address] [place] [address] Care Team Providers Care Supervisor Commissary Production Name Role Phone Anastacio Merlos MD Primary Care Provider Unav ailable Encounter Details Date Type Department Care Team ([facility] st Contact Info) Description 04/19/2018 Historical Results Only [facility] Lab - Main [address] [address] Cesar Yo MD Social History Tobacco Use Types Packs/Day Years Used Date Smoking Tobacco: Some Days Smokeless Tobacco: Never Comments:Occasional smoker Alcohol Use Standard Drinks/Week Comments No 0 (1 standard drink = 0.6 oz pur e alcohol) Comments No Sex and Gender Information Value Date Recorded Sex Assigned at Not on file Legal Sex Female 18:56 EST Gender Identity Not on file Sexual Orientation [...] 3.4 3.4 - 4.9 g/dL 04/19/2018 13:05 [facility] ALKALINE PHOSPHATASE - [facility] 99 38 - 126 U/L 04/19/2018 13:05 [facility] BILIRUBIN TOTAL 1.1 0.2 - 1.3 mg/dL 04/19/2018 13:05 [facility] BUN - [facility] 8(L) 10 - 26 mg/dL 04/19/2018 13:05 [facility] CALCIUM - [facility] 9.4 8.5 - 10.5 mg/dL 04/19/2018 13:05 [facility] Chloride 106 96 - 110 mmol/L 04/19/2018 13:05 [facility] CO2 Total 24 22 - 32 mEq/L 04/19/2018 13:05 [facility] CREATININE 0.51(L) 0.52 - 1.04 mg/dL 04/19/2018 13:05 [facility] eGFR >60 04/19/2018 13:05 [facility] Comment: Chronic renal impairment is defined as GFR <60 Multiply result by 1.210 for patients. eGFR calculated using the IDMS-traceable MDRD Study Equation. ??(effective 07/22/2014) Anion Gap 8 0 - 18 04/19/2018 13:05 [facility] GLUCOSE - [facility] 125(H) 70 - 100 mg/dL 04/19/2018 13:05 [facility] Potassium 4.0 3.5 - 5.0 mEq/L 04/19/2018 13:05 [facility] Sodium 138 136 - 145 mEq/L 04/19/2018 13:05 [facility] TOTAL PROTEIN - [facility] 6.9 6.2 - 8.2 gm/dL 04/19/2018 13:05 [facility] SGOT/AST - [facility] 37(H) 14 - 36 U/L 04/19/2018 13:05 [facility] SGPT/ALT - [facility] 22 9 - 52 U/L 8 13:05 [facility] 04/19/2018 11:5 0 EDT 04/19/2018 11:50 EDT Narrative [facility] - 04/19/2018 13:05 EDT Does PT Have a Latex Allergy? NO Cesar Yo MD CHEMISTRY & BLOOD GAS ORDERAB LES Final Result Performing Organization Address City/[facility]/ZIP Co de Phone Number [facility] * HEPATITIS B SURFACE ANTIGEN (04/19/2018 11:50 EDT) Hep B Surface Ag Negative 04/19/2018 13:35 EDT [facility] Comment:Expected Values: Neg ative. 04/19/2018 11:5 0 EDT 04/19/2018 11:50 EDT [facility] - 04/19/2018 13:35 EDT Does PT Have a Latex Allergy? NO Cesar Yo MD CHEMISTRY & BLOOD GAS ORDERAB LES Final Result Performing Organization Address City/[facility]/ZIP Co de Phone Number [facility] * (ABNORMAL) COMPLETE BLOOD COUNT WITH DIFFERENTIAL (AUTO) (04/19/2018 11:50 EDT) Pathologist [facility] ABSOLUTE NEUTROPHIL COUN - [facility] 2.26 1.7 [...] 39.3 34.0 - 47.0 % 04/19/2018 12:45 [facility] HEMOGLOBIN - [facility] 13.5 11.2 - 15.7 g/dl 04/19/2018 12:45 [facility] IG# - [facility] 0 0 - 0.07 10e3/uL 04/19/2018 12:45 [facility] IG% - [facility] 0 0 - 0.9 % 04/19/2018 12:45 [facility] LYMPH # - [facility] 1.80 0.9 - 2.9 10e3/uL 04/19/2018 12:45 [facility] LYMPH% - [facility] 40 20 - 40 % 04/19/2018 12:45 [facility] MEAN CORPUSCULAR HGB - [facility] 31.5 26 - 34 pg 04/19/2018 12:45 [facility] MEAN CORPUSCULAR HGB CONC - [facility] 34.4 31 - 36 g/dL 04/19/2018 12:45 [facility] MEAN CELL VOLUME - [facility] 91.8 77 - 100 fl 04/19/2018 12:45 [facility] MONO # - [facility] 0.35 0.3 - 0.9 10e3/uL 04/19/2018 12:45 [facility] MONO% - [facility] 8 0 - 12 % 04/19/2018 12:45 [facility] PLATELET COUNT 77(L) 150 - 400 10e3/ul 04/19/2018 12:45 [facility] RED BLOOD COUNT - [facility] 4.28 3.8 - 5.2 10e6/ul 04/19/2018 12:45 [facility] RED CELL DISTRI WIDTH - [facility] 13.3 11.8 - 15.6 % 04/19/2018 12:45 [facility] WHITE BLOOD COUNT - [facility] 4.5 3.5 - 10.5 10e3/ul 04/19/2018 12:45 [facility] 04/19/2018 11:5 0 EDT 04/19/2018 11:50 [facility] - 04/19/2018 12:45 EDT Does PT Have a Latex Allergy? NO us Cesar Yo MD HEMATOLOGY & PF4 ORDERABLES F inal Result Performing Organization Address [facility] Co de Phone Number [facility] * (ABNORMAL) AFP TUMOR MARKER (04/19/2018 11:50 EDT) ALPHA-FETOPROTEIN TUMOR MARKER - [facility] 9.4(A) <8.1 ng/mL 04/20/2018 14:30 EDT [facility] Comment: AFP tumor marker cannot be interpreted in females. ?? Serum AFP concentration should not be interpreted as absolute evidence for the presence or absence of malignant disease. ?? Assayed utilizing Hyperpot chemiluminescent technology. Values obtained by using different assay methods cannot be used interchangeably. Test Performed by: [place] [id number] 04/19/2018 11:5 0 EDT 04/19/2018 11:50 EDT Narrative [facility] - 04/20/2018 14:30 EDT Does PT Have a Latex Allergy? NO us Cesar Yo MD CHEMISTRY & BLOOD GAS ORDERAB LES Final Result Performing Organization Address [facility] Co de Phone Number [facility] documented in this encounter Visit Diagnoses Not on filedocumented in this encounter Care Teams Supervisor Commissary Production Relationship Specialty Start Date End Date Anastacio Merlos MD PCP - General 08/12/15 documented as of this encounter
--- OUTSIDE RECORDS SUMMARY | 2024-08-13 16:47 | XMS_ITS | Encounter Summary ---
Author Organization [facility] Address [address] [place] [address] Care Team Providers Care Algologist Name Role Phone Anastacio Merlos MD Primary Care Provider Unav ailable Encounter Details Date Type Department Care Team (Latest Contact Info) Description 01/18/2018 13:27 EDT - 01/18/2018 23:59 EDT Hospital Encounter [facility] [address] [place] [address] Unknown, Provider, MD Discharge Disposition: Home or Self Care Social [...] this encounter Medications at Time of Discharge levothyroxine (SYNTHROID) 50 mcg tablet Take 50 mcg by mouth daily UNABLE TO FIND Take 1 Cap by mouth daily Med Name: cognishield documented as of this encounter Discharge Disposition Disposition Code Departure Means Destination Home or Self Half-Way documented in this encounter Plan of Treatment Not on file documented as of this encounter Visit Diagnoses Not on filedocumented in this encounter Care Teams Algologist Relationship Specialty Start Date End Date Anastacio Merlos MD PCP - General 08/12/15 documented as of this encounter
--- OUTSIDE RECORDS SUMMARY | 2024-08-13 16:47 | XMS_ITS | Encounter Summary ---
Author Organization [facility] Address [address] [place] [address] Care Team Providers Care Automotive Worker Foreman Name Role Phone Brianna Wang ND Primary Care Provider [phone] Reason for Visit * Reason Comments Surgical Excision cyst x2 scalp, inner thigh- skin tag Encounter Details Date Type Department Care Team (Late st Contact Info) Description 03/21/2012 15:30 EDT Office Visit [facility] Dermatology 3rd Floor [facility] [address] [place] [address] Julio Vaughan MD [address] [place] [address] [place] [address] Francisco Melendez MD Alpert, Jamie Allison, MD Neoplasm of unspecified nature of bone, soft tissue, and skin (Primary Dx) Social History Tobacco Use Types Packs/Day Years Used Date Smoking Tobacco: Never Assessed Comments Unknown Sex and Gender Information Value Date Recorded Sex Assigned at Not on file Legal Sex Female 18:56 EST Gender Identity Not on file Sexual Orientation Not on file documented as of this encounter Patient Instructions * Patient Instructions* Francisco Melendez MD - 03/21/2012 16:39 EDT [facility] DERMATOLOGIC AND LASER SURGERY UNIT EXCISIONAL WOUND CARE INSTRUCTIONS The DRESSING/BANDAID should remain in place for 24 hours. You may shower or bathe after 24 hours; remove the bandage and replace it after the shower. DISCOMFORT: Expect some discomfort. Extra-Strength Tylenol, taken as directed by the knot saw operator, will help relieve pain. If the [...] Notes * Francisco Melendez MD - 03/21/2012 1643 EDT CYST EXCISION PATIENT INFORMATION: Vika Ardon : MRN: [id number] SURGEON: Julio Vaughan MD/Francisco Melendez MD SHIPWRIGHT HELPER: Sandrine Arrieta MA Specimen A LOCATION: Frontal [...] Irritated growing lesion R inner thigh O: [place] pedunculated papule A: Neoplasm of uncertain behavior: R inner thigh ddx: Skin tag vs atypical nevus vs other P: Shave biopsy - see note PATIENT INFORMATION: Vika Ardon : MRN: [id number] SURGEON: Julio Vaughan MD/Francisco Melendez MD The [...] the entire procedure. Julio Vaughan MD, KIA Ban[employer] [facility] Division of Dermatology [facility] * Francisco Melendez MD - 03/21/2012 1543 [...] encounter Miscellaneous Notes * Scanned Note-Null - FILM PROJECTOR OPERATOR, SCAN 2 - 03/27/2012 1257 EDT documented in this encounter Plan of Treatment Not on file documented as of this encounter Visit Diagnoses Diagnosis Neoplasm of unspecified nature of bone, soft tissue, and skin- Primary documented in this encounter Care Teams Automotive Worker Foreman Relationship Specialty Start Date End Date Brianna Wang ND [address] [place] [phone] PCP - General 03/16/12 08/11/15 documented as of this encounter
--- OUTSIDE RECORDS SUMMARY | 2024-08-13 16:47 | XMS_ITS | Encounter Summary ---
Author Organization [facility] Address [address] [place] [address] Care Team Providers Care Dowel Pin Worker Name Role Phone Anastacio Merlos MD Primary Care Provider Unav ailable Encounter Details Date Type Department Care Team (Latest Contact Info) Description 06/12/2018 15:05 EDT - 06/12/2018 23:59 EDT Hospital Encounter [facility] [address] [place] [address] Unknown, Provider, MD Discharge Disposition: Home or [...] Code Departure Means Destination Home or Self [facility] documented in this encounter Plan of Treatment Not on file documented as of this encounter Visit Diagnoses Not on filedocumented in this encounter Care Teams Dowel Pin Worker Relationship Specialty Start Date End Date Anastacio Merlos MD PCP - General 08/12/15 documented as of this encounter
--- OUTSIDE RECORDS SUMMARY | 2024-08-13 16:47 | XMS_ITS | Clinical Summary ---
Author Organization [facility] Address [address] [place] [address] Care Team Providers Care Cash Register Repairer Name Role Phone Anastacio Merlos MD Primary Care Provider Unav ailable Allergies No known active allergies Medications levothyroxine (SYNTHROID) 50 mcg tablet Take 50 mcg by mouth daily Active UNABLE TO FIND Take 1 Cap by mouth daily Med Name: cognishield Active furosemide (LASIX) 20 mg tablet Take 20 mg by mouth daily. Active Vit Y53-Gtqauua Fact-FA Cmb #2 (INTRINSI J01-WSWYCK) 500-20-800 mcg-mg-mcg tablet Take by mouth. Activ e Potassium 99 mg tablet Take 1 Tab by mouth daily. Active cholecalciferol , Vitamin D3, 1,000 unit tablet Take 1,000 Units by mouth daily. Active cyanocobalamin (VITAMIN B-12) 500 mcg tablet Take 500 mcg by mouth daily. Active Active Problems Patient Care Coordination No te Formatting of this note migh t be different from the original. [facility] Memory Program TALON scanned into Prism: [...] 04/20/2020 Verbally Threaten Not on file 04/20/2020 Comments No Sex and Gender Information Value [...] Health Maintenance Due Date Last Done Comments Fall Risk Screening 08/12/2016 08/12/2015 RSV Immunization ( o r 60+ Years) (1 - 1-dose 75+ series) 2023 COVID-19 Vaccine (2023- season) 2024 Hepatitis C Screen Completed 01/21/2022, 0 10/05/2018, 01/18/2018 Procedures Procedure Name Priority Date/Time Associated Diagnosis Comments HCV RNA DETECT QUANT Routine 01/21/2022 16:23 EDT from Last 3 Months or Most Recently Relevant to Health Maintenance Results * HCV RNA DETECT QUANT (01/21/2022 16:23 EDT) HCV RNA Qualitative Undetected Undetected 01/25/2022 12:33 EDT [facility] Blood VENOUS BLOOD / Unknown 01/21/2022 16:23 EDT 01/22/2022 16:37 EDT Narrative [facility] - 01/25/2022 12:33 EDT The quantification range of this assay is 15 IU/mL to 100,000,000 IU/mL. Testing was performed using the Alfonso HCV test ([employer] with the alfonsoSiriona0 System. us Provider Outr Resulting Lab CHEMISTRY & BLOOD GA S ORDERABLES Final Result [facility] [address] [place] [address] from Last 3 Months or Most Recently Relevant to Health Maintenance Insurance [place] MEDICARE [place]CO [place] Care Teams Cash Register Repairer Relationship Specialty Start Date End Date Anastacio Merlos MD PCP - General 08/12/15
--- OUTSIDE RECORDS SUMMARY | 2024-08-13 16:47 | XMS_ITS | Encounter Summary ---
Author Organization [facility] Address [address] [place] [address] Care Team Providers Care Cis Coordinator Name Role Phone Anastacio Merlos MD Primary Care Provider Unav ailable Encounter Details Date Type Department Care Team ([facility] Contact Info) Description 05/31/2018 Historical Results Only [facility] Lab - Main [address] [address] Cesar Yo MD Social History Tobacco Use [...] 9.0 - 30.0 umol/L 05/31/2018 14:32 EDT [facility] Comment: Glucose at or above 600 mg/dl can cause a decrease of 8 to 40 umol/L in ammonia concentration. 05/31/2018 14:0 5 EDT 05/31/2018 14:05 EDT Narrative [facility] - 05/31/2018 14:32 EDT Does PT Have a Latex Allergy? NO Cesar Yo MD CHEMISTRY & BLOOD GAS ORDERAB LES Final Result Performing Organization Address [facility] Co de Phone Number [facility] * HEPATITIS B SURFACE ANTIGEN (05/31/2018 14:05 EDT) Pathologist [facility] Hep B Surface Ag Negative 05/31/2018 15:20 EDT [facility] Comment: Expected Values: ??Negative. The results of this assay can be falsely lowered due to the consumption of Biotin. 05/31/2018 14:0 5 EDT 05/31/2018 14:05 EDT Narrative [facility] - 05/31/2018 15:20 EDT Does PT Have a Latex Allergy? NO Cesar Yo MD CHEMISTRY & BLOOD GAS ORDERAB LES Final Result Performing Organization Address [facility] de Phone Number [facility] * (ABNORMAL) HEPATIC FUNCTION PANEL (ALB,ALK PHOS,ALT,AST,DBIL,TOT BARBARA,TOT PROT) (05/31/2018 14:04 EDT) Pathologist [facility] Albumin % 3.5 3.4 - 4.9 g/dL 05/31/2018 14:50 EDT [facility] ALKALINE PHOSPHATASE - [facility] 113 38 - 126 U/L 05/31/2018 14:50 EDT [facility] BILIRUBIN DIRECT CALC - [facility] 0.4 0.0 - 0.4 mg/dL 05/31/2018 14:50 EDT [facility] BILIRUBIN TOTAL 1.1 0.2 - 1.3 mg/dL 05/31/2018 14:50 EDT [facility] Unconjugated Bilirubin 0.7 0.0 - 1.1 mg/dL 05/31/2018 14:50 EDT [facility] TOTAL PROTEIN - [facility] 7.3 6.2 - 8.2 gm/dL 05/31/2018 14:50 EDT [facility] SGOT/AST - [facility] 40(H) 14 - 36 U/L 05/31/2018 14:50 EDT [facility] SGPT/ALT - [facility] 17 9 - 52 U/L 8 14:50 EDT [facility] 05/31/2018 14:0 4 EDT 05/31/2018 14:05 EDT Narrative [facility] - 05/31/2018 14:50 EDT Does PT Have a Latex Allergy? NO us Cesar Yo MD CHEMISTRY & BLOOD GAS ORDERAB LES Final Result [facility] documented in this encounter Visit Diagnoses Not on filedocumented in this encounter Care Teams Cis Coordinator Relationship Specialty Start Date End Date Anastacio Merlos MD PCP - General 08/12/15 documented as of this encounter
--- OUTSIDE RECORDS SUMMARY | 2024-08-13 16:47 | XMS_ITS | Encounter Summary ---
Author Organization [facility] Address [address] [place] [address] Care Team Providers Care Welder Fitter Name Role Phone Anastacio Merlos MD Primary Care Provider Unav ailable Encounter Details Date Type Department Care Team ([facility] st Contact Info) Description 12/28/2019 Lab Requisition [facility] Pathology & Laboratory Medicine - [facility] [address] [place] [address] Brea Mooney [address] [place], [place] [id number] Encounter for other general examination Social History [...] Not Detected Not Detected 12/29/2019 19:01 EDT [facility] Comment:Assayed at [place], [place] Swab ENTIRE NASOPHARYNX / Unknown 12/28/2019 9:02 EDT 12/28/2019 20:56 EDT us Brea Mooney MICROBIOLOGY - GENERAL ORDERABL ES Final Result [facility] [place] documented in this encounter Visit Diagnoses Diagnosis Encounter for other general examination documented in this encounter Care Teams Welder Fitter Relationship Specialty Start Date End Date Anastacio Merlos MD PCP - General 08/12/15 documented as of this encounter
--- OUTSIDE RECORDS SUMMARY | 2024-08-13 16:47 | XMS_ITS | Encounter Summary ---
Author Organization [facility] Address [address] [place] [address] Care Team Providers Care Maple Products Supervisor Name Role Phone Anastacio Merlos MD Primary Care Provider Unav ailable Reason for Visit * Reason Comments New Patient Visit calculus of gallblad idalia * Consult (Routine) - Closed Specialty Diagnoses / Procedures Referred By Jacoby summers Referred To Contact General Surgery Diagnoses Gallbladder calculus Anastacio Merlos MD Abujaish, Wasef, MD Phone: tel: fax: Referral ID Status Reason Start Date Expiration Date Visits Re quested Visits Authorized [id number] Closed 1 1 Encounter Details Date Type Department Care Team (Late st Contact Info) Description 07/17/2018 15:00 EDT Office Visit [facility] General Surgery - Main [facility] [address] [place], [place] [id number] Obinna Ladd MD [address] [place] [phone] Abnormal gall bladder diagnostic imaging (Primary [...] Obinna Ladd MD - 07/17/2018 1500 EDT [facility] General Surgery Consultation Note - Initial Visit [...] 99 mg tablet UNABLE TO FIND Vit T33-Jbcuvff Fact-FA Cmb #2 (INTRINSI B60-DJKKXJ) 500-20-800 mcg-mg-mcg tablet No current facility-administered medications [...] need an EKG, full report from her diesel powerplant mechanic helper, an ultrasound to determine the extent of her ascites. She was counseled on avoidance of large, fatty meals. F/U with her PCP & diesel powerplant mechanic helper. I would like to thank Anastacio Merlos for providing me the opportunity to participate in the management of this patient. 1. Brooks KM, Apryl DA. 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 cyanocobalamin (VITAMIN B-12) 500 mcg tablet Take 500 mcg by mouth daily. cholecalciferol, Vitamin D3, 1,000 unit tablet Take 1,000 Units by mouth daily. Potassium 99 mg tablet Take 1 Tab by mouth daily. Vit M62-Dxvwptk Fact-FA Cmb #2 (INTRINSI B06-BASTTN) 500-20-800 mcg-mg-mcg tablet Take by mouth. furosemide (LASIX) 20 mg tablet Take 20 mg by mouth daily. added in this encounter Care Teams Maple Products Supervisor Relationship Specialty Start Date End Date Anastacio Merlos MD PCP - General 08/12/15 documented as of this encounter
--- OUTSIDE RECORDS SUMMARY | 2024-08-13 16:47 | XMS_ITS | Referral Summary ---
Author Organization [facility] Address [address] [place] [address] Care Team Providers Care A Operator Name Role Phone Anastacio Merlos MD Primary Care Provider Unav ailable Allergies No known active allergies Medications levothyroxine (SYNTHROID) 50 mcg tablet Take 50 mcg by mouth daily Active UNABLE TO FIND Take 1 Cap by mouth daily Med Name: cognishield Active furosemide (LASIX) 20 mg tablet Take 20 mg by mouth daily. Active Vit J22-Pnibdoi Fact-FA Cmb #2 (INTRINSI D10-MKNLDL) 500-20-800 mcg-mg-mcg tablet Take by mouth. Activ [...] migh t be different from the original. [facility] Memory Program TALON scanned into Prism: 07/29/15 [...] RNA Qualitative Undetected Undetected 01/25/2022 12:33 EDT [facility] Blood VENOUS BLOOD / Unknown 01/21/2022 16:23 EDT 01/22/2022 16:37 EDT Narrative [facility] - 01/25/2022 12:33 EDT The quantification range of this assay is 15 IU/mL to 100,000,000 IU/mL. Testing was performed using the Alfonso HCV test ([employer] with the alfonso 6800 System. us Provider Outr Resulting Lab CHEMISTRY & BLOOD GA S ORDERABLES Final Result [facility] [address] [place] [address] from Last 3 Months or Most Recently Relevant to Health Maintenance Insurance [place]ICAID [place] MEDICARE A[place] Care Teams A Operator Relationship Specialty Start Date End Date Anastacio Merlos MD PCP - General 08/12/15
--- OUTSIDE RECORDS SUMMARY | 2024-08-13 16:47 | XMS_ITS | Encounter Summary ---
Author Organization [facility] Address [address] [place] [address] Care Team Providers Care Interior Assemblies Installer Name Role Phone Brianna Wang ND Primary Care Provider [phone] Encounter Details Date Type Department Care Team ([facility] st Contact Info) Description 03/21/2012 Results Only [facility] Dermatology 5th Floor [facility] [address] [place] [address] Julio Vaughan MD [address] [place] [address] Social History Tobacco Use Types [...] ? VIKA MONTES ? Accession #: ? [id number] ? : ? 1950 (Age: 61) ??F ? Collect Date: ? 03/21/2012 ? Location: [...] fibrous connective tissue and dilated vessels. (Dr. Campos)/ljn Document reviewed and electronically signed by: CALEB [...] trisected and entirely submitted as (B). ??(Antonia Arriaga)/[facility] End of Report [facility] 03/21/2012 03/23/2012 11: 08 EDT us Julio Vaughan MD PATHOLOGY ORDERABLES Final Result [facility] [address] [place] [address] documented in this encounter Visit Diagnoses Not on filedocumented in this encounter Care Teams Interior Assemblies Installer Relationship Specialty Start Date End Date Brianna Wang ND [address] [place] [phone] PCP - General 03/16/12 08/11/15 documented as of this encounter
--- OUTSIDE RECORDS SUMMARY | 2024-08-13 16:47 | XMS_ITS | Encounter Summary ---
Author Organization [facility] Address [address] [place] [address] Care Team Providers Care Transportation Solutions Manager Name Role Phone Anastacio Merlos MD Primary Care Provider Unav ailable Encounter Details Date Type Department Care Team ([facility] Contact Info) Description 10/05/2018 Historical Results Only [facility] Lab - Main [address] [address] Cesar Yo MD Social History Tobacco Use [...] 3.4 - 4.9 g/dL 10/05/2018 16:48 EST [facility] ALKALINE PHOSPHATASE [facility] 91 38 - 126 U/L 10/05/2018 16:48 [facility] BILIRUBIN DIRECT CALC - [facility] 0.2 0.0 - 0.4 mg/dL 10/05/2018 16:48 [facility] BILIRUBIN TOTAL 1.4(H) 0.2 - 1.3 mg/dL 10/05/2018 16:48 [facility] Unconjugated Bilirubin 1.2(H) 0.0 - 1.1 mg/dL 10/05/2018 16:48 [facility] TOTAL PROTEIN - [facility] 7.2 6.2 - 8.2 gm/dL 10/05/2018 16:48 [facility] SGOT/AST - [facility] 38(H) 14 - 36 U/L 10/05/2018 16:48 [facility] SGPT/ALT - [facility] 15 9 - 52 U/L 9 16:48 [facility] 10/05/2018 16:0 0 EST 10/05/2018 16:05 EST Narrative [facility] - 10/05/2018 16:48 EST COMMENTS: ENDO RECOVERY POD C Does PT Have a Latex Allergy? NO us Cesar Yo MD CHEMISTRY & BLOOD GAS ORDERAB LES Final Result [facility] * HCV RNA DETECT QUANT (10/05/2018 16:00 EST) Pathologist [facility] HCV RNA Quantitative Undetected Undetected IU/mL 10/09/2018 11:02 [facility] Comment: Result in log IU/mL is Undetected. ADDITIONAL INFORMATION The quantification range of this assay is 15 to 100,000,000 IU/mL (1.18 log to 8.00 log IU/mL). Testing was performed using the alfonso HCV test ([employer] with the alfonso Werdsmith0 System. Test Performed by: [address] [id number] 10/05/2018 16:0 0 EST 10/05/2018 16:06 EST Narrative [facility] - 10/09/2018 11:02 EST COMMENTS: ENDO RECOVERY POD C Does PT Have a Latex Allergy? NO us Cesar Yo MD CHEMISTRY & BLOOD GAS ORDERAB LES Final Result [facility] documented in this encounter Visit Diagnoses Not on filedocumented in this encounter Care Teams Transportation Solutions Manager Relationship Specialty Start Date End Date Anastacio Merlos MD PCP - General 08/12/15 documented as of this encounter
--- OUTSIDE RECORDS SUMMARY | 2024-08-13 16:47 | XMS_ITS | Encounter Summary ---
Author Organization [facility] Address [address] [place] [address] Care Team Providers Care Group Therapy Counselor Name Role Phone Brianna Wang ND Primary Care Provider [phone] Reason for Visit * Reason Comments Memory Loss * Consult, Test and Treat (Routine) - Closed Specialty Diagnoses / Procedures Referred By Jacoby summers Referred To Contact Psychology Diagnoses Memory loss Anastacio Merlos MD [facility] Memory Program - Medical Office Building [address] [place] [address] Phone: tel: fax: Referral ID Status Reason Start Date Expiration Date Visits Re quested Visits Authorized [id number] Closed 2 2 Encounter Details Date Type Department Care Team ([facility] Contact Info) Description 07/29/2015 14:00 EST Office Visit [facility] Memory Program - Medical Office Building [address] [place] [address] Zackery Malik, PhD [address] [place] [address] Medical Office Building, [address] [place] [address] Memory loss (Primary Dx); Depression [...] Malik, PhD - 08/01/2015 2000 EST [facility] MEMORY PROGRAM CONSULTATION - 07/29/2015 PSYCHIATRIC INTERVIEW AND NEUROPSYCHOLOGICAL TESTING Ms Vika Ardon was seen for interview and testing on 07/29/2015. She was referred by Dr Anastacio Merlos ([facility]) and was seen as an outpatient at the Medical Office Building [facility]. PATIENT PROFILE: Ms Ardon was born in [place] and grew up mostly in [place]. Her mother at age 92 with Alzheimer's disease and her father at age 92 also, due to cancer. She is the second of 55 children in her family, with all of her siblings living in other states. She attended high school through the 11th grade and eventually obtained some sort of equivalency degree. She later obtained a BS from [employer] [place] in 2006 in an online program in Alternative Medicine. She more recently completed an MA from [employer] in 2010 in [place]. She reports also doing other college work and assorted training programs. 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 She last was employed for 3 years at [employer], but has been out of work since November 2014. She has twice and twice, and has no current relationship. She has two adult sons living in other states; she had a daughter who was recently murdered at age 40. She currently resides alone in subsidized [place], [place]. Her history is significant for hypothyroidism, [...] BEHAVIORAL OBSERVATION AND MENTAL STATUS EXAMINATION: Ms Ardon arrived on time for her appointment, driven [...] to recall the names of the president, telephone advice nurse, and state governor. 2. Attention and Processing: [...] hours -- time includes 2 hours [place] [address] performed by a psychologist and 1 [place] [address] performed by a waste management recycling technician (this time was separate from that of the psychologist). Zackery Malik PHD Psychologist - Doctorate 12 55 PM - Zackery Malik, PHD mn Dictation ID: [id number] documented in this encounter Plan of Treatment Not on file documented as of this encounter Visit Diagnoses Diagnosis Memory loss- Primary Depression Depressive disorder, not elsewhere classified documented in this encounter Care Teams Group Therapy Counselor Relationship Specialty Start Date End Date Brianna Wang ND [address] [place] [phone] PCP - General 03/16/12 08/11/15 documented as of this encounter
--- OUTSIDE RECORDS SUMMARY | 2024-08-13 16:47 | XMS_ITS | Encounter Summary ---
Author Organization [facility] Address [address] [place] [address] Care Team Providers Care Fluid Pump Operator Name Role Phone Anastacio Merlos MD Primary Care Provider Unav ailable Encounter Details Date Type Department Care Team ([facility] st Contact Info) Description 01/22/2022 Lab Requisition [facility] Pathology & Laboratory Medicine - [facility] [address] [place], [place] [phone] Outr Resulting Lab, Provider Social History Tobacco [...] RNA Qualitative Undetected Undetected 01/25/2022 12:33 EDT [facility] Blood VENOUS BLOOD / Unknown 01/21/2022 16:23 EDT 01/22/2022 16:37 EDT Narrative [facility] - 01/25/2022 12:33 EDT The quantification range of this assay is 15 IU/mL to 100,000,000 IU/mL. Testing was performed using the Alfonso HCV test ([employer] with the alfonso [email or web address] System. us Provider Outr Resulting Lab CHEMISTRY & BLOOD GA S ORDERABLES Final Result [facility] [address] [place] [address] documented in this encounter Visit Diagnoses Not on filedocumented in this encounter Care Teams Fluid Pump Operator Relationship Specialty Start Date End Date Anastacio Merlos MD PCP - General 08/12/15 documented as of this encounter
--- OUTSIDE RECORDS SUMMARY | 2024-08-13 16:47 | XMS_ITS | Encounter Summary ---
Author Organization [facility] Address [address] [place] [address] Care Team Providers Care House Piping Inspector Name Role Phone Anastacio Merlos MD Primary Care Provider Unav ailable Encounter Details Date Type Department Care Team ([facility] st Contact Info) Description 09/01/2016 Documentation Visit [facility] Memory Program - Medical Office Building [address] [place], [place] [phone] Ignacio Bella MD [address] [place] [address] Medical Office Building, [address] [place] [phone] Social History Tobacco Use Types Packs/Day Years [...] Report from07/29/2015. Mailed to: Vika Ardon [address] [facility] [place] [address] documented in this encounter Plan of Treatment Not on file documented as of this encounter Visit Diagnoses Not on filedocumented in this encounter Care Teams House Piping Inspector Relationship Specialty Start Date End Date Anastacio Merlos MD PCP - General 08/12/15 documented as of this encounter
--- OUTSIDE RECORDS SUMMARY | 2024-08-13 16:47 | XMS_ITS | Encounter Summary ---
Author Organization [facility] Address [address] [place] [address] Care Team Providers Care Pasting Machine Operator Name Role Phone Brianna Wang ND Primary Care Provider [phone] Reason for Visit * Reason Onset Date Comments Appointment Related 03/16/2012 Encounter Details Date Type Department Care Team ([facility] st Contact Info) Description 03/16/2012 Telephone [facility] Dermatology 5th Floor [address] [phone] Yolis Dempsey RN Appointment Related Social History [...] on filedocumented in this encounter Care Teams Pasting Machine Operator Relationship Specialty Start Date End Date Brianna Wang ND [address] [place] [phone] PCP - General 03/16/12 08/11/15 documented as of this encounter
--- OUTSIDE RECORDS SUMMARY | 2024-08-13 16:47 | XMS_ITS | Encounter Summary ---
Author Organization [facility] Address [address] [place] [address] Care Team Providers Care Head Men'S Tennis Coach Name Role Phone Brianna Wang ND Primary Care Provider [phone] Encounter Details Date Type Department Care Team (Late st Contact Info) Description 03/28/2015 Orders Only [facility] Memory Program - Medical Office Building [address] [place], [place] [phone] Ignacio Bella MD [address] [facility] Medical Office Building, [address] [place] [phone] Memory loss (Primary Dx) Social History Tobacco [...] EST) Syphilis Serology Negative 07/30/2015 13:31 EST [facility] Comment:Reference Range: Neg ative Blood specimen (specimen) BLOOD SPECIMEN / Unknown 07/29/2015 16:40 EST 07/29/2015 18:55 EST us Ignacio Bella MD IMMUNOLOGY AND SEROLOGY ORDERABLES Final Result [facility] [address] [place] [address] * VITAMIN B12 (07/29/2015 16:40 EST) Pathologist [facility] Vitamin B-12 507 211 - 911 pg/ml 07/29/2015 20:34 [facility] Blood specimen (specimen) BLOOD SPECIMEN / Unknown 07/29/2015 16:40 EST 07/29/2015 18:55 EST Ignacio Bella MD CHEMISTRY & BLOOD GAS OR DERABLES Final Result Performing Organization Address City/[facility]/ZIP Co de Phone Number [facility] [address] [place] [address] * (ABNORMAL) HEMAGRAM AND DIFFERENTIAL (07/29/2015 16:40 EST) Pathologist [facility] WBC 6.26 4.0 - 12.4 K/cmm 07/29/2015 19:16 [facility] RBC 4.84 3.86 - 5.04 M/cmm 07/29/2015 19:16 [facility] Hemoglobin 14.1 11.6 - 15.2 gm/dl 07/29/2015 19:16 [facility] HCT 42.2 34.9 - 44.4 % 07/29/2015 19:16 [facility] MCV 87 81 - 98 fl 07/29/2015 19:16 [facility] MCH 29.0 26.7 - 33.3 pg 07/29/2015 19:16 [facility] MCHC 33.3 32.1 - 35.9 gm/dl 07/29/2015 19:16 [facility] RDW-CV 13.5 11.7 - 14.6 % 07/29/2015 19:16 [facility] RDW-SD 41.1 37.6 - 50.3 fl 07/29/2015 19:16 [facility] PLT 121(L) 141 - 320 K/cmm 07/29/2015 19:16 [facility] MPV 8.8 7.5 - 11.2 fl 07/29/2015 19:16 [facility] % Neutrophils 58.4 45.5 - 79.7 % 07/29/2015 19:16 [facility] % Lymphocytes 33.1 15.0 - 46.8 % 07/29/2015 19:16 [facility] % Monocytes 6.4 1.8 - 12.0 % 07/29/2015 19:16 [facility] % Eosinophils 1.4 0.6 - 6.9 % 07/29/2015 19:16 [facility] % Basophils 0.7 0.2 - 1.4 % 07/29/2015 19:16 [facility] ABS Neutrophils 3.66 2.20 - 8.85 K/cmm 07/29/2015 19:16 [facility] ABS Lymphs 2.07 1.09 - 3.30 K/cmm 07/29/2015 19:16 [facility] ABS Monocytes 0.40 0.1 - 0.8 K/cmm 07/29/2015 19:16 [facility] ABS Eosinophils 0.09 0.03 - 0.61 K/cmm 07/29/2015 19:16 [facility] ABS Basophils 0.05 0.01 - 0.11 K/cmm 07/29/2015 19:16 [facility] Type of Diff: Automated 07/29/2015 19:16 [facility] Blood specimen (specimen) BLOOD SPECIMEN / Unknown 07/29/2015 16:40 EST 07/29/2015 18:55 EST us Ignacio Bella MD PACKAGES & DNA PROBE ORD ERABLES Final Result [facility] [address] [place] [address] * (ABNORMAL) COMPREHENSIVE METABOLIC PANEL (CMP) (07/29/2015 16:40 EST) Potassium 3.8 3.5 - 5.0 mEq/L 07/29/2015 19:46 [facility] Sodium 139 136 - 145 mEq/L 07/29/2015 19:46 [facility] Chloride 102 96 - 110 mEq/L 07/29/2015 19:46 [facility] CO2 25 24 - 32 mEq/L 07/29/2015 19:46 [facility] Total Alkaline Phosphatase 110 38 - 126 U/L 07/29/2015 19:46 [facility] Bilirubin, Total 0.6 <1.4 mg/dl 07/29/20 15 19:46 [facility] AST 149(H) 15 - 46 U/L 07/29/2015 19:46 [facility] ALT 67(H) <53 U/L 07/29/2015 19:46 [facility] Albumin 4.0 3.4 - 4.9 g/dl 07/29/2015 19:46 [facility] Total Protein 7.6 6.3 - 8.2 g/dl 07/29/2015 19:46 [facility] Creatinine 0.55 0.52 - 1.04 mg/dl 07/29/2015 19:46 [facility] GFR, Calculated 98 >60 ml/min/1.7 3m2 07/29/2015 19:46 [facility] Comment: eGFR calculated using CKD-EPI equation for non Americans. Multiply eGFR by 1.16 for Americans. BUN 13 10 - 26 mg/dl 07/29/2015 19:46 [facility] Calcium 9.2 8.5 - 10.5 mg/dl 07/29/2015 19:46 [facility] Calculated Calcium 9.6 8.5 - 10.5 mg/dl 07/29/2015 19:46 [facility] Glucose, Serum 79 70 - 100 mg/dl 07/29/2015 19:46 [facility] Fasting? No 07/29/2015 16:42 [facility] Blood specimen (specimen) BLOOD SPECIMEN / Unknown 07/29/2015 16:40 EST 07/29/2015 18:55 EST Ignacio Bella MD CHEMISTRY & BLOOD GAS OR DERABLES Final Result [facility] [address] [place] [address] * CT HEAD WO CONTRAST (07/29/2015 15:57 [...] matter changes. Ignacio Bella MD IMG CT ORDERABLES Final Result documented in this encounter Visit Diagnoses Diagnosis Memory loss- Primary documented in this encounter Care Teams Head Men'S Tennis Coach Relationship Specialty Start Date End Date Brianna Wang ND [address] [place] [phone] PCP - General 03/16/12 08/11/15 documented as of this encounter
--- OUTSIDE RECORDS SUMMARY | 2024-08-13 16:47 | XMS_ITS | Encounter Summary ---
Author Organization [facility] Address [address] [place] [address] Care Team Providers Care Aerial Gunner Name Role Phone Anastacio Merlos MD Primary Care Provider Unav ailable Encounter Details Date Type Department Care Team ([facility] st Contact Info) Description 12/24/2021 Lab Requisition [facility] Pathology & Laboratory Medicine - [facility] [address] [place], [place] [address] Outr Resulting Lab, Provider Social History Tobacco [...] Lyme Ab Negative Negative 12/25/2021 11:25 EDT [facility] Blood VENOUS BLOOD / Unknown 12/23/2021 16:30 EDT 12/24/2021 17:30 EDT us Provider Outr Resulting Lab IMMUNOLOGY AND SEROL OGY ORDERABLES Final Result [facility] [address] [place] [address] documented in this encounter Visit Diagnoses Not on filedocumented in this encounter Care Teams Aerial Gunner Relationship Specialty Start Date End Date Anastacio Merlos MD PCP - General 08/12/15 documented as of this encounter
--- OUTSIDE RECORDS SUMMARY | 2024-08-13 16:47 | XMS_ITS | Encounter Summary ---
Author Organization [facility] Address [address] [place] [address] Care Team Providers Care General Foundry Worker Name Role Phone Anastacio Merlos MD Primary Care Provider Unav ailable Encounter Details Date Type Department Care Team ([facility] st Contact Info) Description 06/19/2018 Results Only Imaging [facility] [phone] Unknown, Provider, MD Social History Tobacco Use Types Packs/Day [...] on filedocumented in this encounter Care Teams General Foundry Worker Relationship Specialty Start Date End Date Anastacio Merlos MD PCP - General 08/12/15 documented as of this encounter
--- OUTSIDE RECORDS SUMMARY | 2024-08-13 16:47 | XMS_ITS | Encounter Summary ---
Author Organization [facility] Address [address] [place] [address] Care Team Providers Care Slip Operator Name Role Phone Anastacio Merlos MD Primary Care Provider Unav ailable Reason for Visit * Reason Comments Memory Loss * Consult, Test and Treat (Routine) - Closed Specialty Diagnoses / Procedures Referred By Jacoby summers Referred To Contact Psychology Diagnoses Memory loss Anastacio Merlos MD [facility] Memory Program - Medical Office Building [address] [place] [address] Phone: tel: fax: Referral ID Status Reason Start Date Expiration Date Visits Re quested Visits Authorized [id number] Closed 2 2 Encounter Details Date Type Department Care Team ([facility] Contact Info) Description 08/12/2015 14:00 EST Office Visit [facility] Memory Program - Medical Office Building [address] [place], [place] [phone] Ignacio Bella MD [address] [place], [place] [address] Medical Office Building, [address] [place] [address] Memory loss (Primary Dx) Social [...] Bella MD - 08/12/2015 1746 EST [facility] MEMORY PROGRAM CONSULTATION - 08/12/2015 REASON FOR CONSULTATION: The patient's concern about cognitive changes. CONSULTATIVE SOURCE: I was asked to see this patient in consultation by Anastacio Merlos MD. INFORMANTS: Ms Ardon, records provided from Dr Merlos and review of [facility]. PATIENT PROFILE: Vika Ardon is a 64-year-old white right-handed woman, currently living by herself in subsidized housing in [place]. Ms Ardon was born in [place] and grew up in [place]. She completed high school through the 11th grade and eventually earned an equivalency degree. She later obtained a BS degree [place] [employer] in an online program in alternative medicine and more recently completed an MA from [employer] in 2010 in [place]. She reports having done other college work in sort of training programs. 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 MEDICAL HISTORY: Rosacea, bilateral cataracts status post [...] of 89 from melanoma. She has a [id number] who has coronary artery disease and 2 [...] - Ignacio Bella MD cn Dictation ID: [id number] cc: Anastacio Merlos MD, [address], [address] [address] documented in this encounter Plan of Treatment Not on file documented as of this encounter Visit Diagnoses Diagnosis Memory loss- Primary documented in this encounter Historical Medications * This list may reflect changes made after this encounter. UNABLE TO FIND Take 1 Cap by mouth daily Med Name: cognishield levothyroxine (SYNTHROID) 50 mcg tablet Take 50 mcg by mouth daily added in this encounter Care Teams Slip Operator Relationship Specialty Start Date End Date Anastacio Merlos MD PCP - General 08/12/15 documented as of this encounter
--- OUTSIDE RECORDS SUMMARY | 2024-08-13 16:47 | XMS_ITS | Encounter Summary ---
Author Organization [facility] Address [address] [place] [address] Care Team Providers Care Cake Inspector Name Role Phone Brianna Wang KEITH Primary Care Provider [phone] Anastacio Merlos MD Primary Care Provider Unav ailable Encounter Details Date Type Department Care Team ([facility] st Contact Info) Description 07/29/2015 Phlebotomy Only [facility] [address] [place] [address] Dog Races Manager, Outpatient Memory loss (Primary Dx) Social History [...] EST) Syphilis Serology Negative 07/30/2015 13:31 EST [facility] Comment:Reference Range: Neg ative Blood specimen (specimen) BLOOD SPECIMEN / Unknown 07/29/2015 16:40 EST 07/29/2015 18:55 EST us Ignacio Bella MD IMMUNOLOGY AND SEROLOGY ORDERABLES Final Result [facility] [address] [place] [address] * VITAMIN B12 (07/29/2015 16:40 EST) Vitamin B-12 507 211 - 911 pg/ml 07/29/2015 20:34 [facility] Blood specimen (specimen) BLOOD SPECIMEN / Unknown 07/29/2015 16:40 EST 07/29/2015 18:55 EST us Ignacio Bella MD CHEMISTRY & BLOOD GAS OR DERABLES Final Result Performing Organization Address [facility] Co de Phone Number [facility] [address] [place] [address] * (ABNORMAL) HEMAGRAM AND DIFFERENTIAL (07/29/2015 16:40 EST) WBC 6.26 4.0 - 12.4 K/cmm 07/29/2015 19:16 [facility] RBC 4.84 3.86 - 5.04 M/cmm 07/29/2015 19:16 [facility] Hemoglobin 14.1 11.6 - 15.2 gm/dl 07/29/2015 19:16 [facility] HCT 42.2 34.9 - 44.4 % 07/29/2015 19:16 [facility] MCV 87 81 - 98 fl 07/29/2015 19:16 [facility] MCH 29.0 26.7 - 33.3 pg 07/29/2015 19:16 [facility] MCHC 33.3 32.1 - 35.9 gm/dl 07/29/2015 19:16 [facility] RDW-CV 13.5 11.7 - 14.6 % 07/29/2015 19:16 [facility] RDW-SD 41.1 37.6 - 50.3 fl 07/29/2015 19:16 [facility] PLT 121(L) 141 - 320 K/cmm 07/29/2015 19:16 [facility] MPV 8.8 7.5 - 11.2 fl 07/29/2015 19:16 [facility] % Neutrophils 58.4 45.5 - 79.7 % 07/29/2015 19:16 [facility] % Lymphocytes 33.1 15.0 - 46.8 % 07/29/2015 19:16 [facility] % Monocytes 6.4 1.8 - 12.0 % 07/29/2015 19:16 [facility] % Eosinophils 1.4 0.6 - 6.9 % 07/29/2015 19:16 [facility] % Basophils 0.7 0.2 - 1.4 % 07/29/2015 19:16 [facility] ABS Neutrophils 3.66 2.20 - 8.85 K/cmm 07/29/2015 19:16 [facility] ABS Lymphs 2.07 1.09 - 3.30 K/cmm 07/29/2015 19:16 [facility] ABS Monocytes 0.40 0.1 - 0.8 K/cmm 07/29/2015 19:16 [facility] ABS Eosinophils 0.09 0.03 - 0.61 K/cmm 07/29/2015 19:16 [facility] ABS Basophils 0.05 0.01 - 0.11 K/cmm 07/29/2015 19:16 [facility] Type of Diff: Automated 07/29/2015 19:16 [facility] Blood specimen (specimen) BLOOD SPECIMEN / Unknown 07/29/2015 16:40 EST 07/29/2015 18:55 EST us Ignacio Bella MD PACKAGES & DNA PROBE ORD ERABLES Final Result [facility] [address] [place] [address] * (ABNORMAL) COMPREHENSIVE METABOLIC PANEL (CMP) (07/29/2015 16:40 [facility]) Potassium 3.8 3.5 - 5.0 mEq/L 07/29/2015 19:46 [facility] Sodium 139 136 - 145 mEq/L 07/29/2015 19:46 [facility] Chloride 102 96 - 110 mEq/L 07/29/2015 19:46 [facility] CO2 25 24 - 32 mEq/L 07/29/2015 19:46 [facility] Total Alkaline Phosphatase 110 38 - 126 U/L 07/29/2015 19:46 [facility] Bilirubin, Total 0.6 <1.4 mg/dl 07/29/20 15 19:46 [facility] AST 149(H) 15 - 46 U/L 07/29/2015 19:46 [facility] ALT 67(H) <53 U/L 07/29/2015 19:46 [facility] Albumin 4.0 3.4 - 4.9 g/dl 07/29/2015 19:46 [facility] Total Protein 7.6 6.3 - 8.2 g/dl 07/29/2015 19:46 [facility] Creatinine 0.55 0.52 - 1.04 mg/dl 07/29/2015 19:46 [facility] GFR, Calculated 98 >60 ml/min/1.7 3m2 07/29/2015 19:46 [facility] Comment: eGFR calculated using CKD-EPI equation for non Americans. Multiply eGFR by 1.16 for Americans. BUN 13 10 - 26 mg/dl 07/29/2015 19:46 [facility] Calcium 9.2 8.5 - 10.5 mg/dl 07/29/2015 19:46 [facility] Calculated Calcium 9.6 8.5 - 10.5 mg/dl 07/29/2015 19:46 [facility] Glucose, Serum 79 70 - 100 mg/dl 07/29/2015 19:46 [facility] Fasting? No 07/29/2015 16:42 [facility] Blood specimen (specimen) BLOOD SPECIMEN / Unknown 07/29/2015 16:40 EST 07/29/2015 18:55 EST us Ignacio Bella MD CHEMISTRY & BLOOD GAS OR DERABLES Final Result [facility] [address] [place] [address] documented in this encounter Visit Diagnoses Diagnosis Memory loss- Primary documented in this encounter Care Teams Cake Inspector Relationship Specialty Start Date End Date Brianna Wang ND [address] [place] [phone] PCP - General 03/16/12 08/11/15 Anastacio Merlos MD [address] [place] [phone] PCP - General 08/12/15 documented as of this encounter
--- OUTSIDE RECORDS SUMMARY | 2024-08-13 16:47 | XMS_ITS | Encounter Summary ---
Author Organization [facility] Address [address] [place] [address] Care Team Providers Care Air Tester Name Role Phone Anastacio Merlos MD Primary Care Provider Unav ailable Encounter Details Date Type Department Care Team ([facility] Contact Info) Description 01/18/2018 Historical Results Only [facility] Radiology Results [address] [place] [address] Cesar Yo MD Social History Tobacco Use [...] B SURFACE ANTIGEN (01/18/2018 9:15 EDT) Pathologist [facility] Hep B Surface Ag Negative 01/18/2018 11:19 EDT [facility] Comment:Expected Values: Neg ative. 01/18/2018 9:15 EDT 01/18/2018 9:15 EDT [facility] - 01/18/2018 11:19 EDT Does PT Have a Latex Allergy? NO Cesar Yo MD CHEMISTRY & BLOOD GAS ORDERAB LES Final Result Performing Organization Address [facility] Co de Phone Number [facility] * HEPATITIS B SURFACE ANTIBODY (01/18/2018 9:15 EDT) [facility] Hep B Surface Ab, Qualitative 0.7 01/18/2018 11:19 EDT [facility] Comment: ?Interpretative Guidelines < 5.00 mIU/mL = ?Negative Clinical Interpretation of Immune Status: Patient is considered to be not immune to infection with HBV. 01/18/2018 9:15 EDT 01/18/2018 9:15 EDT [facility] - 01/18/2018 11:19 EDT Does PT Have a Latex Allergy? NO Cesar Yo MD CHEMISTRY & BLOOD GAS ORDERAB LES Final Result Performing Organization Address [facility] Co de Phone Number [facility] * HCV RNA DETECT QUANT (01/18/2018 9:15 EDT) [facility] HCV RNA Quantitative 1,350,00 0 Undetected IU/mL 01/20/2018 18:09 EDT [facility] Comment: Result in log IU/mL is 6.13. ADDITIONAL INFORMATION The quantification range of this assay is 15 to 100,000,000 IU/mL (1.18 log to 8.00 log IU/mL). Testing was performed using the alfonso HCV test ([employer] with the alfonso 6800 System. Test Performed by: [facility] [address] [place] [address] 01/18/2018 9:15 EDT 01/18/2018 9:15 EDT Narrative [facility] - 01/20/2018 18:09 EDT Does PT Have a Latex Allergy? NO Cesar Yo MD CHEMISTRY & BLOOD GAS ORDERAB LES Final Result Performing Organization Address [facility] Co de Phone Number [facility] * (ABNORMAL) HEPATITIS B CORE ANTIBODY (TOTAL) (01/18/2018 9:15 EDT) Pathologist [facility] Hepatitis B Core Ab, Total Positive( A) NEGAT 01/20/2018 18:09 EDT [facility] Comment: Indicates either remote past infection OR window period between disappearance of HBsAg and appearance of HBsAb. ?? The results of this assay can be falsely lowered due to the consumption of Biotin. Test Performed by: [place] [address] Transportation Design Engineer: iMsael Harris MD , Ph D 01/18/2018 9:15 EDT 01/18/2018 9:15 EDT Narrative [facility] - 01/20/2018 18:09 EDT Does PT Have a Latex Allergy? NO Cesar Yo MD CHEMISTRY & BLOOD GAS ORDERAB LES Final Result Performing Organization Address [facility]/ZIP Co de Phone Number [facility] * (ABNORMAL) AFP TUMOR MARKER (01/18/2018 9:15 EDT) Pathologist [facility] ALPHA-FETOPROTEIN TUMOR MARKER - [facility] 18.7(A) <8.1 ng/mL 01/20/2018 18:09 EDT [facility] Comment: AFP tumor marker cannot be interpreted in females. ?? Serum AFP concentration should not be interpreted as absolute evidence for the presence or absence of malignant disease. ?? Assayed utilizing Siemens chemiluminescent technology. Values obtained by using different assay methods cannot be used interchangeably. Test Performed by: THE [address] [address] Transportation Design Engineer: Misael Harris MD , Ph D 01/18/2018 9:15 EDT 01/18/2018 9:15 EDT Narrative [facility] - 01/20/2018 18:09 EDT Does PT Have a Latex Allergy? NO us Cesar Yo MD CHEMISTRY & BLOOD GAS ORDERAB LES Final Result [facility] * US ABDOMEN LIMITED [...] Report ? (CONTINUED) ? follow-up on the [employer] PACS findings application, to be tracked by ? the [facility] tracking system. ? REPORT SIGNED IN OTHER VENDOR SYSTEM 01/18/2018 ?Reported By: Malachi Alejandra MD ? CC: ? Transcribed Date/Time: 01/18/2018 (7550) ? Airborne And Air Delivery Specialist: ? Printed Date/Time: 03/09/2019 (7170) ? PAGE 2 ? Signed Report ? [...] 1 Signed Report (CONTINUED) follow-up on the [employer] PACS findings application, to be tracked by the [facility] tracking system. REPORT SIGNED IN OTHER VENDOR SYSTEM 01/18/2018 Reported By: Malachi Alejandra MD CC: Transcribed Date/Time: 01/18/2018 (0850) Airborne And Air Delivery Specialist: Printed Date/Time: 03/09/2019 (9942) PAGE 2 Signed Report us Cesar Yo MD [facility] ORDERABLES Final Resul t documented in this encounter Visit Diagnoses Not on filedocumented in this encounter Care Teams Air Tester Relationship Specialty Start Date End Date Anastacio Merlos MD PCP - General 08/12/15 documented as of this encounter
--- OUTSIDE RECORDS SUMMARY | 2024-08-13 16:47 | XMS_ITS | Encounter Summary ---
Author Organization [facility] Address [address] [place] [address] Care Team Providers Care Estimation Manager Name Role Phone Anastacio Merlos MD Primary Care Provider Unav ailable Encounter Details Date Type Department Care Team ([facility] Contact Info) Description 06/12/2018 Historical Results Only [facility] Radiology Results [address] [place] [address] Cesar Yo MD Social History Tobacco Use [...] CC: ? Transcribed Date/Time: 06/12/2018 (1406) ? [employer] Developer: ? Printed Date/Time: 03/10/2019 (1104) ? PAGE [...] OTHER VENDOR SYSTEM 06/12/2018 Reported By: Kg Terrell MD CC: Transcribed Date/Time: 06/12/2018 (8683) [employer] Developer: Printed Date/Time: 03/10/2019 (5308) PAGE 2 Signed Report us Cesar Yo MD IMG CT ORDERABLES Final Resul t documented in this encounter Visit Diagnoses Not on filedocumented in this encounter Care Teams Estimation Manager Relationship Specialty Start Date End Date Anastacio Merlos MD PCP - General 08/12/15 documented as of this encounter
[2024-08-13 21:37] LABS: HCT 42.6 % (36.0-46.0); HGB 14.4 g/dL (11.2-15.7); MCH 32.4 pg (27.0-33.0); MCHC 33.8 % (32.0-36.0); MCV 96 fL (80-95); MPV 10.6 fL (8.0-11.0); RBC 4.44 10^6/uL (3.93-5.22); RDW 13.8 % (11.7-14.6); RDW-SD 48.9 fL; WBC 5.05 10^3/uL (4.4-10.8)
[2024-08-13 21:46] LABS: INR 1.2 (0.9-1.1); Prothrombin Time 12.1 sec (9.1-11.1)
[2024-08-13 21:52] LABS: Platelet Count 87 10^3/uL (130-400)
[2024-08-13 22:12] LABS: ALT 15 U/L (14-59); AST 43 U/L (15-37); Albumin 3.1 g/dL (3.4-5.0); Alkaline Phosphatase 81 U/L (46-116); Anion Gap 2.3 mmol/L (3-11); BUN 9 mg/dL (7-18); Bilirubin, Total 2.54 mg/dL (0.2-1.0); CO2 30.7 mmol/L (21.0-32.0); CREATININE 0.7 mg/dL (0.55-1.02); Calcium 9.2 mg/dL (8.5-10.1); Chloride 106 mmol/L (98-107); Estimated GFR 90.14 (mL/min/1.73m2); Glucose 90 mg/dL (74-106); Sodium 139 mmol/L (136-145); Total Protein 7.5 g/dL (6.4-8.2); Vitamin B12 1051 pg/mL (193-986)
== END 2024-08-13 16:39 | disposition home or self-care (01) ==
LOC: NCHCN 16:38
PROVIDERS: PCP Internal Medicine; Visit Provider Internal Medicine
DX: K74.60 Unspecified cirrhosis of liver (principal)
CPT/HCPCS: 80053; 85027; 82607; 85610

== ENCOUNTER 2025-09-08 19:48 | Outpatient (REF) | payer MEDICAID, SELFPAY ==
[2025-09-08 20:03] LABS: Abs Immature Grans 0.02 10^3/uL (0.0-0.06); HCT 35.9 % (36.0-46.0); HGB 12.2 g/dL (11.2-15.7); Immature Grans % 0.4 %; MCH 33.2 pg (27.0-33.0); MCHC 34.0 % (32.0-36.0); MCV 98 fL (80-95); MPV 9.5 fL (8.0-11.0); Platelet Count 96 10^3/uL (130-400); RBC 3.68 10^6/uL (3.93-5.22); RDW 16.4 % (11.7-14.6); RDW-SD 58.5 fL; WBC 4.87 10^3/uL (4.4-10.8)
[2025-09-08 22:00] LABS: ALT 9 U/L (10-49); AST 40 U/L (<34); Albumin 1.8 g/dL (3.2-5.0); Alkaline Phosphatase 86 U/L (46-116); Anion Gap 4.2 mmol/L (3-11); BUN 12 mg/dL (9-23); Bilirubin, Total 2.2 mg/dL (0.2-1.2); CO2 28.8 mmol/L (20.0-31.0); Calcium 7.7 mg/dL (8.3-10.6); Chloride 104 mmol/L (98-107); Glucose 104 mg/dL (74-106); Potassium 4.4 mmol/L (3.5-5.1); Sodium 137 mmol/L (136-145); Total Protein 6.5 g/dL (5.7-8.2)
== END 2025-09-08 19:49 | disposition home or self-care (01) ==
LOC: LBN 19:48
PROVIDERS: PCP Internal Medicine; Visit Provider Nurse Practitioner Adult Health
DX: G92.8 Other toxic encephalopathy (principal)
CPT/HCPCS: 80053; 85025

== ENCOUNTER 2025-09-09 11:40 | Outpatient (REF) | payer MEDICAID, SELFPAY ==
[2025-09-09 13:55] LABS: Ammonia 37 umol/L (11-32)
== END 2025-09-09 11:41 | disposition home or self-care (01) ==
LOC: LBN 11:40
PROVIDERS: PCP Internal Medicine; Visit Provider Nurse Practitioner Adult Health
DX: K76.9 Liver disease, unspecified (principal)
CPT/HCPCS: 82140

== ENCOUNTER → 2025-09-17 16:26 | Outpatient (CLI) | payer MEDICARE, MEDICAID, SELFPAY ==
--- NOTE | 2025-09-17 | DI.US_ITS ---
Exam(s) US ABDOMEN EXAM: US ABDOMEN CLINICAL HISTORY: K74.60 Cirrhosis, ? ascites, abd bloating TECHNIQUE: Ultrasound abdomen performed using standard protocol. COMPARISON: No exams were available for comparison FINDINGS: LIVER: Liver has a shrunken and nodular appearance, consistent with cirrhosis. Measures 12 cm in length. No focal liver lesions are seen. The the portal vein is patent but shows minimal hepatopetal flow. GALLBLADDER: The gallbladder wall appears to be calcified and shadows. Stones cannot be evaluated.. CHRISTENSEN'S SIGN: Negative. BILIARY SYSTEM: No intrahepatic or extrahepatic biliary ductal dilation. KIDNEYS: Kidneys are symmetric in size. No evidence of renal calculi. No evidence of hydronephrosis. No renal mass or cyst identified. PANCREAS: Normal where visualized. SPLEEN: Not enlarged. ABDOMINAL AORTA AND IVC: Visualized portions normal caliber. ASCITES: There is large amount of ascites seen in all 4 quadrants. The sum of the deepest pockets in all quadrants is 40.5 cm. IMPRESSION: Cirrhotic liver. Large amount of ascites. Calcified gallbladder wall. No biliary dilatation. DATA REPOSITORY:
== END ==
PROVIDERS: PCP Internal Medicine; Visit Provider Nurse Practitioner Adult Health
DX: K74.60 Unspecified cirrhosis of liver (principal); K80.00 Calculus of gallbladder with acute cholecystitis without obstruction
CPT/HCPCS: 76700